=== PATIENT | female | born 1945 | race Caucasian/White ===

== ENCOUNTER 2020-02-28 09:46 | Outpatient (REF) | payer MEDICARE, SELFPAY ==
--- NOTE | 2020-02-28 | MM_ITS ---
EXAMINATION: MM SCREENING DIGITAL BREAST TOMOSYNTHESIS, BILATERAL CLINICAL INFORMATION: Screening. Asymptomatic. The lifetime risk of breast cancer based on the Tyrer-Cuzick Model is 3%. COMPARISON: Mammography: 02/21/2019, 02/03/2018, 01/05/2017 TECHNIQUE: Digital breast tomosynthesis is performed in both the craniocaudal and mediolateral oblique views along with computer-aided detection (CAD). Synthesized 2D images are generated from the tomosynthesis. Additional left MLO view is provided. FINDINGS: There are scattered areas of fibroglandular density (ACR BI-RADS breast composition Category b). Parenchymal pattern is similar to prior studies. There is no interval mass or developing density or architectural abnormality. The axilla and skin contours are unremarkable. Again, there are regional calcifications right breast greatest central region. They appear increased although there may be superimposed digital processing artifact when compared with prior exams performed without tomosynthesis. Patient will be recalled to obtain the magnification views to fully characterize. MM/MM tomosynthesis screening BI IMPRESSION: 1. Right: Regional calcifications right breast, increased versus superimposed digital processing artifact. 2. Left: No mammographic evidence of malignancy. ASSESSMENT: BI-RADS 0: Incomplete - Need Additional Imaging Evaluation RECOMMENDATION: 1. Additional views of the right breast (magnification CC, magnification ML). 2. Radiology department staff will contact the patient for additional imaging. This patient's information was entered into a reminder system with a target due date for their next mammogram.
== END 2020-02-28 09:47 | disposition home or self-care (01) ==
LOC: HO.MAMMO 09:46
PROVIDERS: Visit Provider Family Medicine
DX: Z12.31 Encounter for screening mammogram for malignant neoplasm of breast (principal)
CPT/HCPCS: 77063; 77067

== ENCOUNTER 2020-03-06 12:54 | Outpatient (REF) | payer MEDICARE, SELFPAY ==
--- NOTE | 2020-03-06 | MM_ITS ---
EXAMINATION: MM DIAGNOSTIC DIGITAL MAMMOGRAPHY, RIGHT CLINICAL INFORMATION: Increasing calcifications. COMPARISON: Mammography: 02/28/2020 and studies dating back to 06/18/2010. TECHNIQUE: Digital mammography is performed in the following views: Magnification views in craniocaudal and 90-degree mediolateral views. FINDINGS: There are scattered areas of fibroglandular density (ACR BI-RADS breast composition Category b). There are grouped and scattered calcifications seen about the central aspect of the right breast which appears similar to previous studies with one region more laterally smaller in size and heart compared to previous studies. There is no layering identified on 90-degree mediolateral view. No branching forms are identified. Recommend 6 month follow-up magnification views for further follow-up. Results are provided to the patient at time of visit by the technologist. MM/MM added views RT IMPRESSION: Probable benign calcifications right breast. ASSESSMENT: BI-RADS 3: Probably Benign. RECOMMENDATION: Diagnostic mammography in 6 months. This patient's information was entered into a reminder system with a target due date for their next mammogram.
== END 2020-03-06 12:55 | disposition home or self-care (01) ==
LOC: HO.MAMMO 12:54
PROVIDERS: Visit Provider Family Medicine
DX: R92.1 Mammographic calcification found on diagnostic imaging of breast (principal)
CPT/HCPCS: 77065

== ENCOUNTER 2020-04-12 16:32 | Inpatient (IN) | payer MEDICARE, SELFPAY ==
[2020-04-12 16:34] VITALS: BP 162/68; PULSE 94; RESP 18; TEMP 37.8; O2SAT 93; BMI 28.4
[2020-04-12 16:43] VITALS: BP 162/68; PULSE 95; RESP 18; TEMP 37.8; O2SAT 92
--- NOTE | 2020-04-12 17:07 | ED_ITS ---
HPI - General Adult General Chief complaint: General Medical Stated complaint: fever, cough, weakness Time Seen by Provider: 04/12/20 17:04 Source: patient Mode of arrival: ambulatory Limitations: language barrier History of Present Illness HPI narrative: Patient has history of arthritis asthma and diabetes 5 days of weakness cough with mucoid phlegm and low-grade fever with nausea. Patient denies any vomiting or diarrhea has not been able to eat for last 5 days much exertional shortness of breath ++ no one at home is COVID positive Onset (ago): day(s) (5) Related Data Allergies Allergy/AdvReac Type Severity Reaction Status Date / Time Penicillins Allergy Severe SWELLING Unverified 01/17/20 16:31 levofloxacin [From LEVAQUIN] Allergy Mild ITCHING Unverified 01/17/20 16:31 penicillin V Allergy Unknown hives Verified 09/08/17 00:00 SEAFOOD Allergy Unknown ITCHING/SWE Uncoded 01/17/20 16:31 LLING seafood Allergy Unknown hives Uncoded 09/08/17 00:00 Review of Systems Review of Systems: REVIEW OF SYSTEMS: Pertinent positives and negatives are stated above in the history. GEN: no fevers, chills, fatigue HEENT: no nasal congestion, sore throat, ear pain NEURO: no headache, dizziness, focal weakness PULM: no shortness of breath CV: no chest pain, palpitations, LE edema ABD: no vomiting, diarrhea mild pain in left upper abdomen with nausea : no dysuria, urgency, frequency SKIN: no rash ROS otherwise negative x 10 PMFSH Past Medical History Medical History Arthritis Asthma Diabetes HTN (hypertension) Osteoporosis Thyroid disease Social History Social History Alcohol intake: never Smoking Status: Never smoker Use of substances other than those prescribed or required for medical reasons: No Advance Directives: No Advance Directives Information Provided: No Physical Exam Vital Signs: Vital Signs: Last Vital Signs Temp 100.1 F 04/12/20 20:18 Pulse 86 04/12/20 20:18 Resp 10 L 04/12/20 20:18 BP 142/66 H 04/12/20 20:18 Pulse Ox 97 04/12/20 20:18 Body Mass Index 28.4 VITAL SIGNS: Reviewed. GENERAL: Well developed, well nourished, in no acute distress. HEAD: Normocephalic/atraumatic, EYES: PERRLA No pallor/icterus noted OROPHARYNX: Oral mucosa moist no oral lesions NECK: Supple, no adenopathy LUNGS: Normal breath sounds. No adventitious sounds or accessory muscle use CARDIOVASCULAR: Regular rate and rhythm without noted murmurs, no JVD or lower extremity edema. ABDOMEN: Soft, non-tender, non-distended with normal bowel sounds. No rigidity. No guarding. No palpable masses or hernias noted MUSCULOSKELETAL: No tenderness, deformities, EXTREMITIES: No cyanosis or edema. SKIN: no rashes, ulcerations, jaundice, pallor, or petechiae NEUROLOGIC: Alert and oriented x 3. Strength and sensation to light touch were grossly intact normal speech Medical Decision Making MDM Narrative Medical decision making narrative: Patient has history of asthma and diabetes came here for 5 days of weakness and cough and exertional shortness of breath when the patient ambulated in the ER patient's pulse ox dropped to 86% at room air improved to 91% at rest and on 2 L of oxygen to 96% patient x-ray showed bilateral lower lobe infiltrate patient white counts are normal lactic acid is also normal COVID testing came positive for COVID-19 infection. Will admit patient for hypoxia, IV Decadron and empirical antibiotic Rocephin and doxycycline Lab Data Lab results reviewed: Yes I reviewed the patient's lab results. Result diagrams: 04/12/20 17:55 04/12/20 17:54 Labs: Lab Results 04/12/20 04/12/20 04/12/20 Range/Units 17:54 17:54 17:55 WBC 5.2 (4.8-10.8) X10*3/uL RBC 3.98 L (4.20-5.50) X10*6/uL Hgb 12.4 (12.0-16.0) g/dl Hct 37.0 (37-47) % MCV 93.0 (80-98) fL MCH 31.2 (27.0-33.0) pg MCHC 33.5 (31.0-35.0) g/dl RDW 11.2 (11.0-16.0) % Plt Count 209 (160-400) X10*3/uL MPV 9.7 (9.4-12.3) fL Immature Gran % (Auto) 0.6 H (0.0-0.4) % Neut % (Auto) 70.0 (45-73) % Lymph % (Auto) 19.1 L (20-40) % [place] % (Auto) 10.1 (2-11) % Eos % (Auto) 0.0 (0-4) % Baso % (Auto) 0.2 (0-2) % Lymph # (Auto) 1.0 L (1.2-4.9) X10*3/uL [place] # (Auto) 0.5 (0.1-1.2) X10*3/uL Eos # (Auto) 0.0 (0.0-0.4) X10*3/uL Baso # (Auto) 0.0 (0.0-0.2) X10*3/uL Abs Immat Gran (auto) 0.03 (0.00-0.03) X10*3/uL Absolute Neuts (auto) 3.6 (2.0-8.3) X10*3/uL Absolute Nucleated RBC 0.000 (0.0-0.012) X10*3/uL Nucleated RBC % (auto) 0.0 (0.0-0.2) /100WBC Sodium 138 (135-145) mmol/L Potassium 3.7 (3.3-5.1) mmol/l Chloride 102 (96-108) mmol/L Carbon Dioxide 26 (22-29) mmol/L Anion Gap 14 (12-20) BUN 11 (9-16) mg/dL Creatinine 0.71 (0.5-1.4) mg/dL Estim Creat Clear Calc 59.8 Estimated GFR > 60 Random Glucose 99 (60-115) mg/dL Lactic Acid 1.2 (0.5-2.0) mmol/L Calcium 8.0 L (8.4-10.2) mg/dL Total Bilirubin 0.5 (0.0-1.0) mg/dL Direct Bilirubin 0.3 (0.0-0.5) mg/dL AST 39 H (5-31) U/L ALT 26 (0-31) U/L Alkaline Phosphatase 54 (39-117) U/L Troponin I High Sens (<3.5-17.0) ng/L Total Protein 6.0 L (6.5-8.0) g/dL Albumin 3.7 (3.5-5.0) g/dL Lipase 49 (8-78) U/L Urine Color Urine Appearance Urine pH (5.0-8.0) Ur Specific [place] (1.005-1.025) Urine Protein (NEG-TRACE) MG/DL Urine Glucose (UA) (NEG) MG/DL Urine Ketones (NEG) MG/DL Urine Blood (NEG) Urine Nitrite (NEG) Ur Leukocyte Esterase (NEG) Urine RBC (0) /HPF Urine WBC (0-4) /HPF Ur Squamous Epith Cells /LPF Urine Bacteria /LPF Urine Mucus /LPF Coronavirus (PCR) (Negative) Influenza Type A (PCR) (Negative) Influenza Type B (PCR) (Negative) RSV RNA Qual (PCR) (Negative) 04/12/20 04/12/20 04/12/20 Range/Units 17:55 17:55 17:55 WBC (4.8-10.8) X10*3/uL RBC (4.20-5.50) X10*6/uL Hgb (12.0-16.0) g/dl Hct (37-47) % MCV (80-98) fL MCH (27.0-33.0) pg MCHC (31.0-35.0) g/dl RDW (11.0-16.0) % Plt Count (160-400) X10*3/uL MPV (9.4-12.3) fL Immature Gran % (Auto) (0.0-0.4) % Neut % (Auto) (45-73) % Lymph % (Auto) (20-40) % [place] % (Auto) (2-11) % Eos % (Auto) (0-4) % Baso % (Auto) (0-2) % Lymph # (Auto) (1.2-4.9) X10*3/uL [place] # (Auto) (0.1-1.2) X10*3/uL Eos # (Auto) (0.0-0.4) X10*3/uL Baso # (Auto) (0.0-0.2) X10*3/uL Abs Immat Gran (auto) (0.00-0.03) X10*3/uL Absolute Neuts (auto) (2.0-8.3) X10*3/uL Absolute Nucleated RBC (0.0-0.012) X10*3/uL Nucleated RBC % (auto) (0.0-0.2) /100WBC Sodium Cancelled (135-145) mmol/L Potassium Cancelled (3.3-5.1) mmol/l Chloride Cancelled (96-108) mmol/L Carbon Dioxide Cancelled (22-29) mmol/L Anion Gap Cancelled (12-20) BUN Cancelled (9-16) mg/dL Creatinine Cancelled (0.5-1.4) mg/dL Estim Creat Clear Calc Cancelled Estimated GFR Cancelled Random Glucose Cancelled (60-115) mg/dL Lactic Acid (0.5-2.0) mmol/L Calcium Cancelled (8.4-10.2) mg/dL Total Bilirubin Cancelled (0.0-1.0) mg/dL Direct Bilirubin Cancelled (0.0-0.5) mg/dL AST Cancelled (5-31) U/L ALT Cancelled (0-31) U/L Alkaline Phosphatase Cancelled (39-117) U/L Troponin I High Sens 13.9 (<3.5-17.0) ng/L Total Protein Cancelled (6.5-8.0) g/dL Albumin Cancelled (3.5-5.0) g/dL Lipase (8-78) U/L Urine Color Urine Appearance Urine pH (5.0-8.0) Ur Specific [place] (1.005-1.025) Urine Protein (NEG-TRACE) MG/DL Urine Glucose (UA) (NEG) MG/DL Urine Ketones (NEG) MG/DL Urine Blood (NEG) Urine Nitrite (NEG) Ur Leukocyte Esterase (NEG) Urine RBC (0) /HPF Urine WBC (0-4) /HPF Ur Squamous Epith Cells /LPF Urine Bacteria /LPF Urine Mucus /LPF Coronavirus (PCR) (Negative) Influenza Type A (PCR) (Negative) Influenza Type B (PCR) (Negative) RSV RNA Qual (PCR) (Negative) 04/12/20 04/12/20 Range/Units 17:55 18:04 WBC (4.8-10.8) X10*3/uL RBC (4.20-5.50) X10*6/uL Hgb (12.0-16.0) g/dl Hct (37-47) % MCV (80-98) fL MCH (27.0-33.0) pg MCHC (31.0-35.0) g/dl RDW (11.0-16.0) % Plt Count (160-400) X10*3/uL MPV (9.4-12.3) fL Immature Gran % (Auto) (0.0-0.4) % Neut % (Auto) (45-73) % Lymph % (Auto) (20-40) % [place] % (Auto) (2-11) % Eos % (Auto) (0-4) % Baso % (Auto) (0-2) % Lymph # (Auto) (1.2-4.9) X10*3/uL [place] # (Auto) (0.1-1.2) X10*3/uL Eos # (Auto) (0.0-0.4) X10*3/uL Baso # (Auto) (0.0-0.2) X10*3/uL Abs Immat Gran (auto) (0.00-0.03) X10*3/uL Absolute Neuts (auto) (2.0-8.3) X10*3/uL Absolute Nucleated RBC (0.0-0.012) X10*3/uL Nucleated RBC % (auto) (0.0-0.2) /100WBC Sodium (135-145) mmol/L Potassium (3.3-5.1) mmol/l Chloride (96-108) mmol/L Carbon Dioxide (22-29) mmol/L Anion Gap (12-20) BUN (9-16) mg/dL Creatinine (0.5-1.4) mg/dL Estim Creat Clear Calc Estimated GFR Random Glucose (60-115) mg/dL Lactic Acid (0.5-2.0) mmol/L Calcium (8.4-10.2) mg/dL Total Bilirubin (0.0-1.0) mg/dL Direct Bilirubin (0.0-0.5) mg/dL AST (5-31) U/L ALT (0-31) U/L Alkaline Phosphatase (39-117) U/L Troponin I High Sens (<3.5-17.0) ng/L Total Protein (6.5-8.0) g/dL Albumin (3.5-5.0) g/dL Lipase (8-78) U/L Urine Color YELLOW Urine Appearance CLEAR Urine pH 7.0 (5.0-8.0) Ur Specific [place] 1.010 (1.005-1.025) Urine Protein 1+ H (NEG-TRACE) MG/DL Urine Glucose (UA) NEG (NEG) MG/DL Urine Ketones NEG (NEG) MG/DL Urine Blood TRACE (NEG) Urine Nitrite NEG (NEG) Ur Leukocyte Esterase TRACE H (NEG) Urine RBC 0-2 (0) /HPF Urine WBC 5-9 H (0-4) /HPF Ur Squamous Epith Cells 2+ /LPF Urine Bacteria NONE /LPF Urine Mucus TRACE /LPF Coronavirus (PCR) POSITIVE A (Negative) Influenza Type A (PCR) NEGATIVE (Negative) Influenza Type B (PCR) NEGATIVE (Negative) RSV RNA Qual (PCR) NEGATIVE (Negative) Imaging Data Chest x-ray: Attestation: I personally reviewed and interpreted this imaging study as follows: Radiologist's impression: XR/XR chest 1V IMPRESSION: Patchy bilateral lower lobe infiltrates. Discharge Plan Discharge Clinical Impression: Pneumonia due to 2019 novel coronavirus Patient Disposition: Admitted As Inpatient
--- NOTE | 2020-04-12 17:24 | XR_ITS ---
EXAMINATION: XR CHEST CLINICAL INFORMATION: Weakness with question of Covid COMPARISON: 05/14/2019 TECHNIQUE: Frontal view of the chest was obtained. FINDINGS: There is cardiomegaly without CHF. Some ill-defined patchy infiltrate is present at the lung bases, left greater than right. There is relative sparing of the upper lobes. No pleural effusions are seen. XR/XR chest 1V IMPRESSION: Patchy bilateral lower lobe infiltrates.
[2020-04-12] MEDS: 0.9 % Sodium Chloride 1,000 ML 999 ML IVCONT (17:35)
[2020-04-12 18:06] LABS: MANUAL DIFF FLAG NO
[2020-04-12 18:13] LABS: Basophils Percent Auto 0.2 % (0-2); Hemoglobin 12.4 g/dl (12.0-16.0); Imm Gran Abs Auto 0.03 X10*3/uL (0.00-0.03); Imm Gran Pct Auto 0.6 % (0.0-0.4); Lymphocytes Percent Auto 19.1 % (20-40); Mean Corpuscular HGB Conc 33.5 g/dl (31.0-35.0); Mean Corpuscular Hemoglobin 31.2 pg (27.0-33.0); Mean Platelet Volume 9.7 fL (9.4-12.3); Monocytes Absolute Auto 0.5 X10*3/uL (0.1-1.2); Monocytes Percent Auto 10.1 % (2-11); Neutrophils Absolute Auto 3.6 X10*3/uL (2.0-8.3); Platelet Count 209 X10*3/uL (160-400); Red Blood Count 3.98 X10*6/uL (4.20-5.50); Red Cell Distribution Width 11.2 % (11.0-16.0); White Blood Count 5.2 X10*3/uL (4.8-10.8)
[2020-04-12 18:33] LABS: Lactic Acid 1.2 mmol/L (0.5-2.0)
[2020-04-12 18:37] LABS: Alanine Aminotransferase 26 U/L (0-31); Albumin Level 3.7 g/dL (3.5-5.0); Alkaline Phosphatase 54 U/L (39-117); Anion Gap 14 (12-20); Aspartate Amino Transferase 39 U/L (5-31); Bilirubin Direct 0.3 mg/dL (0.0-0.5); Bilirubin Total 0.5 mg/dL (0.0-1.0); Blood Urea Nitrogen 11 mg/dL (9-16); Carbon Dioxide 26 mmol/L (22-29); Chloride 102 mmol/L (96-108); Creatinine Clr Calc Pharmacy 59.8; Estimated Glomerular Filt Rate > 60; Glucose Random 99 mg/dL (60-115); Lipase 49 U/L (8-78); Potassium 3.7 mmol/l (3.3-5.1); Sodium 138 mmol/L (135-145)
[2020-04-12 18:41] LABS: Glucose Urine UA NEG (NEG); Leukocyte Esterase Urine TRACE (NEG); Nitrite Urine NEG (NEG); Urine Blood TRACE (NEG); Urine Ketones NEG (NEG); Urine Protein 1+ MG/DL (NEG-TRACE)
[2020-04-12 18:49] LABS: Appearance Urine CLEAR; Color Urine YELLOW
[2020-04-12 18:53] LABS: Troponin-I High Sensitivity 13.9 ng/L (<3.5-17.0)
[2020-04-12 18:54] LABS: Influenza A PCR NEGATIVE (Negative); Influenza B PCR NEGATIVE (Negative); Resp Syncy Virus RNA Qual PCR NEGATIVE (Negative)
[2020-04-12 19:08] LABS: SARS COV2 PCR INHOUSE POSITIVE (Negative)
[2020-04-12 19:11] VITALS: BP 188/81; PULSE 100; RESP 28; TEMP 38; O2SAT 91
[2020-04-12] MEDS: Acetaminophen 325 MG TABLET 650 MG PO (19:12)
[2020-04-12 19:15] VITALS: O2SAT 95
--- NOTE | 2020-04-12 19:15 | PC.NURSE ---
PT AMBULATED TO BR W/ EVEN STEADY GAIT, REPORTED BARTON, SPO2 86% RA UPON ARRIVAL BACK TO ROOM, SPO2 INCREASED TO 91 AFTER RESTING IN BED, PT PLACED ON 2L O2 NC, SPO2 INCREASED TO 96%
[2020-04-12] MEDS: cefTRIAXone sodium 1 GM in 0.9 % Sodium Chloride 50 ML IV (19:22)
[2020-04-12] MEDS: dexAMETHasone sod phosphate 4 MG/ML VIAL 10 MG IVPUSH (19:27)
[2020-04-12 19:45] LABS: RBC Urine 0-2 /HPF (0)
[2020-04-12 19:46] LABS: Mucus Urine TRACE /LPF; Squamous Epithelial Cell Urine 2+ /LPF
[2020-04-12 20:18] VITALS: BP 142/66; PULSE 86; RESP 10; TEMP 37.8; O2SAT 97
--- NOTE | 2020-04-12 20:18 | PM.IMHP ---
History of Present Illness Date of Service: 04/12/20 Chief Complaint: SOB 75 y/o female with PMHx of HTN, DM, Hypothyroidism and asthma who presented c/o SOB. Per history provided by the patient, her symptoms started today morning and since then has been worsening, associated with headaches and feeling generalized weakness. Patient does not reports any fever or cough at present. On presentation to the ED patient was found to be hypoxic O2sat of 86% which improved once placed on nasal cannula. CBC showed no evidence of leukocytosis. CXR positive for bilateral lower lober infiltrates. Covid test positive. Patient was placed on isolation and decision for admission given. Patient seen and examined a the bedside, laying down in bed in no acute distress. ROS as above otherwise negative. Physical exam unremarkable. PMHX: Hypertension, diabetes, hypothyroidism, asthma PSx: Hip replacement surgery, hysterectomy FHx: Depression Social history: Lives with at home, uses a cane sometimes when her hip hurts her, denies any tobacco, alcohol or illicit drugs Review of Systems Constitutional: Constitutional: Reports other (headache, weakness) Cardiovascular: Cardiovascular: Reports dyspnea Respiratory: Respiratory: Reports dyspnea [facility] Medical History Arthritis Asthma Diabetes HTN (hypertension) Osteoporosis Thyroid disease Functional capacity: independent ambulation Social History Alcohol intake: never Smoking Status: Never smoker Use of substances other than those prescribed or required for medical reasons: No Advance Directives: No Advance Directives Information Provided: No Meds Allergies Allergy/AdvReac Type Severity Reaction Status Date / Time Penicillins Allergy Severe SWELLING Unverified 01/17/20 16:31 levofloxacin [From LEVAQUIN] Allergy Mild ITCHING Unverified 01/17/20 16:31 penicillin V Allergy Unknown hives Verified 09/08/17 00:00 SEAFOOD Allergy Unknown ITCHING/SWE Uncoded 01/17/20 16:31 LLING seafood Allergy Unknown hives Uncoded 09/08/17 00:00 Home Medications Medication Instructions Recorded Confirmed Type albuterol sulfate 1 amp INHALATION QID PRN 04/12/20 04/12/20 History albuterol sulfate [ProAir HFA] INHALATION 04/12/20 History ascorbic acid (vitamin C) [Vitamin 1 tab PO QAM 04/12/20 04/12/20 History C] aspirin 1 tab PO QAM 04/12/20 04/12/20 History atenolol 1 tab PO BEDTIME 04/12/20 04/12/20 History cholecalciferol (vitamin D3) 1 tab PO QAM 04/12/20 04/12/20 History diltiazem HCl [Cartia XT] 1 cap PO QAM 04/12/20 04/12/20 History fluticasone propionate 1 - 2 spray INTRANASAL DAILY PRN 04/12/20 04/12/20 History furosemide 1 tab PO QAM 04/12/20 04/12/20 History levothyroxine 1 tab PO QAM 04/12/20 04/12/20 History lisinopril 1 tab PO QAM 04/12/20 04/12/20 History metformin 1 tab PO TID 04/12/20 04/12/20 History mirabegron [Myrbetriq] 1 tab PO QAM 04/12/20 04/12/20 History omeprazole 1 cap PO QAM 04/12/20 04/12/20 History rosuvastatin 1 tab PO BEDTIME 04/12/20 04/12/20 History spironolactone 1 tab PO BEDTIME 04/12/20 04/12/20 History Physical Exam Vital Signs and Narrative: Vital Signs: Last Vital Signs Temp 100.4 F 04/12/20 19:11 Pulse 100 04/12/20 19:11 Resp 28 H 04/12/20 19:11 BP 188/81 H 04/12/20 19:11 Pulse Ox 95 04/12/20 19:15 Body Mass Index 28.4 Const: General: cooperative, comfortable and no acute distress Orientation/consciousness: oriented to person, oriented to place and oriented to time HENMT: Head: Yes normal to inspection Eyes: General: appearance normal, both eyes and all related structures Neck: Yes normal visual inspection Chest: Chest palpation & inspection: normal inspection of the chest Resp: Effort & Inspection: normal respiratory effort Auscultation: clear to auscultation bilaterally Cardio: Jugular venous distension: no JVD Rate: regular rate Rhythm: regular rhythm Heart sounds: S1 normal heart sound present and S2 normal heart sound present GI: Inspection: Yes normal to inspection Percussion: Yes normal to percussion Skin: General skin exam: no rashes or lesions noted Neuro: General: oriented to person, oriented to place and oriented to time Cognition (Neuro): normal cognition Gait exam (Neuro): Normal gait present Results Labs CBC and Chem 7: 04/12/20 17:55 04/12/20 17:54 Labs: Laboratory Results - last 24 hr 04/12/20 04/12/20 04/12/20 17:54 17:54 17:55 MCV 93.0 MCH 31.2 MCHC 33.5 RDW 11.2 Plt Count 209 MPV 9.7 Immature Gran % (Auto) 0.6 H Neut % (Auto) 70.0 Lymph % (Auto) 19.1 L [place] % (Auto) 10.1 Eos % (Auto) 0.0 Baso % (Auto) 0.2 Lymph # (Auto) 1.0 L [place] # (Auto) 0.5 Eos # (Auto) 0.0 Baso # (Auto) 0.0 Abs Immat Gran (auto) 0.03 Absolute Neuts (auto) 3.6 Absolute Nucleated RBC 0.000 Nucleated RBC % (auto) 0.0 Anion Gap 14 Estim Creat Clear Calc 59.8 Estimated GFR > 60 Random Glucose 99 Lactic Acid 1.2 Calcium 8.0 L Total Bilirubin 0.5 Direct Bilirubin 0.3 AST 39 H ALT 26 Alkaline Phosphatase 54 Troponin I High Sens Total Protein 6.0 L Albumin 3.7 Lipase 49 Urine Color Urine Appearance Urine pH Ur Specific [place] Urine Protein Urine Glucose (UA) Urine Ketones Urine Blood Urine Nitrite Ur Leukocyte Esterase Urine RBC Urine WBC Ur Squamous Epith Cells Urine Bacteria Urine Mucus Coronavirus (PCR) Influenza Type A (PCR) Influenza Type B (PCR) RSV RNA Qual (PCR) 04/12/20 04/12/20 04/12/20 17:55 17:55 17:55 MCV MCH MCHC RDW Plt Count MPV Immature Gran % (Auto) Neut % (Auto) Lymph % (Auto) [place] % (Auto) Eos % (Auto) Baso % (Auto) Lymph # (Auto) [place] # (Auto) Eos # (Auto) Baso # (Auto) Abs Immat Gran (auto) Absolute Neuts (auto) Absolute Nucleated RBC Nucleated RBC % (auto) Anion Gap Cancelled Estim Creat Clear Calc Cancelled Estimated GFR Cancelled Random Glucose Cancelled Lactic Acid Calcium Cancelled Total Bilirubin Cancelled Direct Bilirubin Cancelled AST Cancelled ALT Cancelled Alkaline Phosphatase Cancelled Troponin I High Sens 13.9 Total Protein Cancelled Albumin Cancelled Lipase Urine Color Urine Appearance Urine pH Ur Specific [place] Urine Protein Urine Glucose (UA) Urine Ketones Urine Blood Urine Nitrite Ur Leukocyte Esterase Urine RBC Urine WBC Ur Squamous Epith Cells Urine Bacteria Urine Mucus Coronavirus (PCR) Influenza Type A (PCR) Influenza Type B (PCR) RSV RNA Qual (PCR) 04/12/20 04/12/20 17:55 18:04 MCV MCH MCHC RDW Plt Count MPV Immature Gran % (Auto) Neut % (Auto) Lymph % (Auto) [place] % (Auto) Eos % (Auto) Baso % (Auto) Lymph # (Auto) [place] # (Auto) Eos # (Auto) Baso # (Auto) Abs Immat Gran (auto) Absolute Neuts (auto) Absolute Nucleated RBC Nucleated RBC % (auto) Anion Gap Estim Creat Clear Calc Estimated GFR Random Glucose Lactic Acid Calcium Total Bilirubin Direct Bilirubin AST ALT Alkaline Phosphatase Troponin I High Sens Total Protein Albumin Lipase Urine Color YELLOW Urine Appearance CLEAR Urine pH 7.0 Ur Specific [place] 1.010 Urine Protein 1+ H Urine Glucose (UA) NEG Urine Ketones NEG Urine Blood TRACE Urine Nitrite NEG Ur Leukocyte Esterase TRACE H Urine RBC 0-2 Urine WBC 5-9 H Ur Squamous Epith Cells 2+ Urine Bacteria NONE Urine Mucus TRACE Coronavirus (PCR) POSITIVE A Influenza Type A (PCR) NEGATIVE Influenza Type B (PCR) NEGATIVE RSV RNA Qual (PCR) NEGATIVE Imaging Radiologist's Impressions: Impressions Chest X-Ray 04/12/20 17:24 IMPRESSION: Patchy bilateral lower lobe infiltrates. Assessment and Plan (1) Pneumonia due to 2019 novel coronavirus: Status: Acute Isolation Start with Rocephin and doxycycline for gram neg and atypical coverage Start with Solumedrol IV as ordered and taper as tolerated Follow up Bcx and respiratory panel Infectious disease consult in the am (2) Respiratory failure: Status: Acute plan as above (3) Hyperlipidemia: Status: Acute continue with statin home dose (4) Diabetes: Status: Acute Insulin regimen as ordered Hold PO meds (5) HTN (hypertension): Status: Acute continue with diltiazem home dose continue with atenolol home dose continue with lasix home dose continue with lisinopril home dose continue with spironolactone home dose continue with aspirin home dose (6) Hypothyroidism: Status: Acute continue with levothyroxine home dose (7) GERD (gastroesophageal reflux disease): Status: Acute continue with PPI home dose (8) Overactive bladder: Status: Acute continue with mirabegron home dose
[2020-04-12] MEDS: Doxycycline Hyclate 100 MG in 0.9 % Sodium Chloride 250 ML 166.67 MG IV (21:26)
[2020-04-13] VITALS (9 sets, daily range): BP systolic 127–154; BP diastolic 54–79; PULSE 68–88; RESP 14–23; TEMP 36.1–37.2; O2SAT 95–98
[2020-04-13 05:59] LABS: Hematocrit 39.9 % (37-47); Hemoglobin 13.1 g/dl (12.0-16.0); Imm Gran Abs Auto 0.02 X10*3/uL (0.00-0.03); Imm Gran Pct Auto 0.7 % (0.0-0.4); Lymphocytes Absolute Auto 0.5 X10*3/uL (1.2-4.9); Lymphocytes Percent Auto 17.6 % (20-40); MANUAL DIFF FLAG SCAN; Mean Corpuscular HGB Conc 32.8 g/dl (31.0-35.0); Mean Corpuscular Volume 94.3 fL (80-98); Mean Platelet Volume 9.6 fL (9.4-12.3); Monocytes Absolute Auto 0.1 X10*3/uL (0.1-1.2); Monocytes Percent Auto 3.6 % (2-11); Neutrophils Absolute Auto 2.4 X10*3/uL (2.0-8.3); Neutrophils Percent Auto 78.1 % (45-73); Platelet Count 243 X10*3/uL (160-400); Red Blood Count 4.23 X10*6/uL (4.20-5.50); Red Cell Distribution Width 11.3 % (11.0-16.0); SCAN SMEAR FLAG 1; White Blood Count 3.1 X10*3/uL (4.8-10.8)
[2020-04-13 06:22] LABS: Anion Gap 17 (12-20); Blood Urea Nitrogen 12 mg/dL (9-16); Calcium 8.2 mg/dL (8.4-10.2); Carbon Dioxide 23 mmol/L (22-29); Chloride 108 mmol/L (96-108); Creatinine Clr Calc Pharmacy 60.6; Estimated Glomerular Filt Rate > 60; Glucose Random 182 mg/dL (60-115); Potassium 4.8 mmol/l (3.3-5.1); Sodium 143 mmol/L (135-145)
[2020-04-13] MEDS: Omeprazole 20 MG CAPSULE.DR PO (06:27)
[2020-04-13] MEDS: Heparin Sodium,Porcine 5,000 UNIT/ML VIAL 5000 UNIT SUBCUT ×3 (06:27→22:41)
[2020-04-13] MEDS: Levothyroxine Sodium 75 MCG TABLET PO (06:27)
[2020-04-13] MEDS: 0.9 % Sodium Chloride Flush 3 ML SYRINGE IVFLUSH ×4 (06:28→22:43)
[2020-04-13 07:34] LABS: Glucose, Whole Blood 157 mg/dL (60-115)
[2020-04-13 09:04] LABS: SLIDE REVIEW VERIFIED
--- NOTE | 2020-04-13 09:56 | HO.PM.IMPN ---
Subjective Subjective Date of Service: 04/13/20 Interval History: sob Cardiovascular Cardiovascular: Reports no additional cardiovascular complaints Gastrointestinal Gastrointestinal: Reports no additional gastrointestinal complaints Physical Exam Vital Signs: Vital Signs: Last Vital Signs Temp 97.9 F 04/13/20 07:23 Pulse 82 04/13/20 07:23 Resp 14 04/13/20 07:23 BP 139/68 04/13/20 07:23 Pulse Ox 96 04/13/20 07:23 Body Mass Index 28.4 General: AO X 3, no acute distress Resp: CTA bilateral CVS: S1,S2,RRR GI: soft, non tender, non distended Neuro: motor grossly intact Psych: appropriate affect Objective Data Current Medications Generic Name Dose Route Start Last Admin Trade Name Freq PRN Reason Stop Dose Admin Albuterol Sulfate 2.5 mg 04/12/20 22:04 Albuterol Sulfate (0.083%) 2.5 Mg/3 Ml Vial.Neb INHALE QID PRN Dyspnea Aspirin 81 mg 04/13/20 09:00 Aspirin Enteric Coated 81 Mg Tablet.Dr PO DAILY [facility] Atenolol 50 mg 04/13/20 21:00 Atenolol 50 Mg Tablet PO BEDTIME [facility] Protocol Atorvastatin Calcium 40 mg 04/13/20 21:00 Atorvastatin Calcium 40 Mg Tablet PO BEDTIME [facility] Diltiazem HCl 240 mg 04/13/20 09:00 Diltiazem Hcl Cd 240 Mg Cap.Er.Deg PO DAILY [facility] Protocol Doxycycline Hyclate 100 mg 04/13/20 22:00 Doxycycline Hyclate 100 Mg Tablet PO Q24H [facility] Fluticasone Propionate 1 - 2 spray 04/12/20 22:04 Fluticasone Propionate Nasal 16 Gm [place] NOSTRIL-B DAILY PRN Dyspnea Furosemide 20 mg 04/12/20 22:15 04/13/20 06:28 Furosemide 20 Mg Tablet PO Not Given DAILY [facility] Protocol Heparin Sodium (Porcine) 5,000 unit 04/13/20 06:00 04/13/20 06:27 Heparin Sodium,Porcine 5,000 Unit/Ml Vial SUBCUT 5,000 unit Q8H [facility] Administration Ceftriaxone Sodium 1 gm/ 50 mls @ 100 mls/hr 04/13/20 20:00 Sodium Chloride IV Q24H [facility] Insulin Human Lispro 0 unit 04/13/20 07:30 04/13/20 09:37 Insulin Lispro 100 Unit/Ml 3 Ml Vial SUBCUT 04/13/20 22:14 Not Given QIDACHS [facility] Protocol Levothyroxine Sodium 75 mcg 04/13/20 06:00 04/13/20 06:27 Levothyroxine Sodium 75 Mcg Tablet PO 75 mcg DAILY@0600 [facility] Administration Lisinopril 10 mg 04/13/20 09:00 Lisinopril 10 Mg Tablet PO DAILY [facility] Protocol Methylprednisolone Sodium Succinate 40 mg 04/13/20 06:00 04/13/20 06:27 Methylprednisolone Sod Succ/Pf 40 Mg/Ml Vial IVPUSH 40 mg Q24H [facility] Administration Mirabegron 50 mg 04/13/20 09:00 Mirabegron 50 Mg Tab.Er.24h PO DAILY [facility] Omeprazole 20 mg 04/13/20 06:30 04/13/20 06:27 Omeprazole 20 Mg Capsule.Dr PO 20 mg DAILY@0630 [facility] Administration Sodium Chloride 3 ml 04/13/20 04:25 04/13/20 09:38 0.9 % Sodium Chloride Flush 3 Ml Syringe IVFLUSH 3 ml QSHIFT [facility] Administration Spironolactone 50 mg 04/13/20 21:00 Spironolactone 25 Mg Tablet PO BEDTIME [facility] Protocol Labs CBC & Chem 7: 04/13/20 04:56 04/13/20 04:56 Microbiology Microbiology Results: Microbiology 04/12/20 19:00 Urine clean catch - Clean Catch Midstream Urine Culture - Preliminary No growth to date. Assessment and Plan (1) Hypothyroidism: Status: Acute (2) Diabetes: Status: Acute (3) Pneumonia due to 2019 novel coronavirus: Status: Acute (4) Respiratory failure: Status: Acute Assessment and Plan: 75F presented with sob acute hypoxic respiratory failure due to covid pneumonia continue steroids, rocephin, wean o2 as tolerated HTN atenolol, lisinopril, aldactone, cardizem HLD statin DM insulin hypothyroid synthroid
--- NOTE | 2020-04-13 11:05 | MHC.CM.PN ---
pt speaks primarily anguill[place] and is currently on [facility] isolation unit. this interview was conducted via pt's son. pt lives c her and son in their apt. she is independent in her own care, she sometimes uses a cane c ambulation. pt's son or will provide transportation home at dc. pt is amenable to having [facility] provide nsg svcs at dc and requested a ref. be made to [facility], which has been done. dc plan is to dc home c [facility] for nsg - pulm. monitoring. cm to cont. to follow.
[2020-04-13] MEDS: lisinopriL 10 MG TABLET PO (11:20)
[2020-04-13] MEDS: Furosemide 20 MG TABLET PO (11:20)
[2020-04-13] MEDS: dilTIAZem HCL CD 240 MG CAP.ER.DEG PO (11:20)
[2020-04-13] MEDS: Mirabegron 50 MG TAB.ER.24H PO (11:20)
[2020-04-13] MEDS: Aspirin Enteric Coated 81 MG TABLET.DR PO (11:20)
[2020-04-13 11:52] LABS: Glucose, Whole Blood 136 mg/dL (60-115)
[2020-04-13 12:08] LABS: Adenovirus PCR Not Detected (Not Detect.); Bordetella parapertussis PCR Not Detected (Not Detect.); Bordetella pertussis PCR Not Detected (Not Detect.); Chlamydia pneumoniae PCR Not Detected (Not Detect.); Coronavirus 229E PCR Not Detected (Not Detect.); Coronavirus HKU1 PCR Not Detected (Not Detect.); Coronavirus NL63 PCR Not Detected (Not Detect.); Coronavirus OC43 PCR Not Detected (Not Detect.); Human metapneumovirus PCR Not Detected (Not Detect.); Influenza A PCR Not Detected (Not Detect.); Influenza B PCR Not Detected (Not Detect.); Mycoplasma pneumoniae PCR Not Detected (Not Detect.); Parainfluenza 1 PCR Not Detected (Not Detect.); Parainfluenza 2 PCR Not Detected (Not Detect.); Parainfluenza 3 PCR Not Detected (Not Detect.); Parainfluenza 4 PCR Not Detected (Not Detect.); RSV PCR Not Detected (Not Detect.); Rhino/Enterovirus PCR Not Detected (Not Detect.)
[2020-04-13 12:59] LABS: SARS-CoV-2 PCR Detected (Not Detect.)
[2020-04-13 16:35] LABS: Glucose, Whole Blood 147 mg/dL (60-115)
[2020-04-13 21:05] LABS: Glucose, Whole Blood 141 mg/dL (60-115)
[2020-04-13] MEDS: Atorvastatin Calcium 40 MG TABLET PO (22:41)
[2020-04-13] MEDS: atenoloL 50 MG TABLET PO (22:41)
[2020-04-13] MEDS: Spironolactone 25 MG TABLET 50 MG PO (22:42)
[2020-04-13] MEDS: cefTRIAXone sodium 1 GM in 0.9 % Sodium Chloride 50 ML IV (22:42)
[2020-04-14] VITALS (9 sets, daily range): BP systolic 133–151; BP diastolic 58–66; PULSE 55–64; RESP 14–21; TEMP 36.4–36.6; O2SAT 94–99
[2020-04-14] MEDS: Heparin Sodium,Porcine 5,000 UNIT/ML VIAL 5000 UNIT SUBCUT ×3 (05:44→23:14)
[2020-04-14] MEDS: Omeprazole 20 MG CAPSULE.DR PO (05:45)
[2020-04-14] MEDS: Levothyroxine Sodium 75 MCG TABLET PO (05:45)
[2020-04-14 07:02] LABS: MANUAL DIFF FLAG NO
[2020-04-14 07:21] LABS: Basophils Percent Auto 0.1 % (0-2); Hematocrit 39.3 % (37-47); Hemoglobin 13.2 g/dl (12.0-16.0); Imm Gran Abs Auto 0.06 X10*3/uL (0.00-0.03); Imm Gran Pct Auto 0.6 % (0.0-0.4); Lymphocytes Absolute Auto 1.2 X10*3/uL (1.2-4.9); Lymphocytes Percent Auto 11.1 % (20-40); Mean Corpuscular HGB Conc 33.6 g/dl (31.0-35.0); Mean Corpuscular Hemoglobin 31.6 pg (27.0-33.0); Mean Platelet Volume 10.3 fL (9.4-12.3); Monocytes Absolute Auto 0.5 X10*3/uL (0.1-1.2); Monocytes Percent Auto 4.7 % (2-11); Neutrophils Absolute Auto 8.6 X10*3/uL (2.0-8.3); Neutrophils Percent Auto 83.5 % (45-73); Platelet Count 285 X10*3/uL (160-400); Red Blood Count 4.18 X10*6/uL (4.20-5.50); Red Cell Distribution Width 11.4 % (11.0-16.0); White Blood Count 10.3 X10*3/uL (4.8-10.8)
[2020-04-14 07:33] LABS: Anion Gap 15 (12-20); Blood Urea Nitrogen 21 mg/dL (9-16); Calcium 8.4 mg/dL (8.4-10.2); Carbon Dioxide 25 mmol/L (22-29); Chloride 108 mmol/L (96-108); Creatinine Clr Calc Pharmacy 55.8; Estimated Glomerular Filt Rate > 60; Glucose Fasting 145 mg/dL (60-99); Potassium 4.2 mmol/l (3.3-5.1); Sodium 144 mmol/L (135-145)
[2020-04-14 07:42] LABS: Glucose, Whole Blood 139 mg/dL (60-115)
--- NOTE | 2020-04-14 09:24 | P.PNIM_ITS ---
Subjective Subjective Date of Service: 04/14/20 Interval History: feeling better, some sob Cardiovascular Cardiovascular: Reports no additional cardiovascular complaints Gastrointestinal Gastrointestinal: Reports no additional gastrointestinal complaints Physical Exam Vital Signs: Vital Signs: Last Vital Signs Temp 97.9 F 04/14/20 08:00 Pulse 56 04/14/20 08:00 Resp 19 04/14/20 08:00 BP 149/59 H 04/14/20 08:00 Pulse Ox 99 04/14/20 08:00 Body Mass Index 28.4 General: AO X 3, no acute distress Resp: CTA bilateral CVS: S1,S2,RRR GI: soft, non tender, non distended Neuro: motor grossly intact Psych: appropriate affect Objective Data Current Medications Generic Name Dose Route Start Last Admin Trade Name Freq PRN Reason Stop Dose Admin Albuterol Sulfate 2.5 mg 04/12/20 22:04 Albuterol Sulfate (0.083%) 2.5 Mg/3 Ml Vial.Neb INHALE QID PRN Dyspnea Aspirin 81 mg 04/13/20 09:00 04/13/20 11:20 Aspirin Enteric Coated 81 Mg Tablet.Dr PO 81 mg DAILY [facility] Administration Atenolol 50 mg 04/13/20 21:00 04/13/20 22:41 Atenolol 50 Mg Tablet PO 50 mg BEDTIME [facility] Administration Protocol Atorvastatin Calcium 40 mg 04/13/20 21:00 04/13/20 22:41 Atorvastatin Calcium 40 Mg Tablet PO 40 mg BEDTIME [facility] Administration Diltiazem HCl 240 mg 04/13/20 09:00 04/13/20 11:20 Diltiazem Hcl Cd 240 Mg Cap.Er.Deg PO 240 mg DAILY [facility] Administration Protocol Doxycycline Hyclate 100 mg 04/13/20 22:00 04/13/20 22:41 Doxycycline Hyclate 100 Mg Tablet PO 100 mg Q24H [facility] Administration Fluticasone Propionate 1 - 2 spray 04/12/20 22:04 Fluticasone Propionate Nasal 16 Gm [place] NOSTRIL-B DAILY PRN Dyspnea Furosemide 20 mg 04/12/20 22:15 04/13/20 11:20 Furosemide 20 Mg Tablet PO 20 mg DAILY [facility] Administration Protocol Heparin Sodium (Porcine) 5,000 unit 04/13/20 06:00 04/14/20 05:44 Heparin Sodium,Porcine 5,000 Unit/Ml Vial SUBCUT 5,000 unit Q8H [facility] Administration Ceftriaxone Sodium 1 gm/ 50 mls @ 100 mls/hr 04/13/20 20:00 04/14/20 00:37 Sodium Chloride IV Infused Q24H [facility] Infusion Levothyroxine Sodium 75 mcg 04/13/20 06:00 04/14/20 05:45 Levothyroxine Sodium 75 Mcg Tablet PO 75 mcg DAILY@0600 [facility] Administration Lisinopril 10 mg 04/13/20 09:00 04/13/20 11:20 Lisinopril 10 Mg Tablet PO 10 mg DAILY [facility] Administration Protocol Methylprednisolone Sodium Succinate 40 mg 04/13/20 06:00 04/14/20 05:45 Methylprednisolone Sod Succ/Pf 40 Mg/Ml Vial IVPUSH 40 mg Q24H [facility] Administration Mirabegron 50 mg 04/13/20 09:00 04/13/20 11:20 Mirabegron 50 Mg Tab.Er.24h PO 50 mg DAILY [facility] Administration Omeprazole 20 mg 04/13/20 06:30 04/14/20 05:45 Omeprazole 20 Mg Capsule.Dr PO 20 mg DAILY@0630 [facility] Administration Sodium Chloride 3 ml 04/13/20 04:25 04/13/20 22:43 0.9 % Sodium Chloride Flush 3 Ml Syringe IVFLUSH 3 ml QSHIFT [facility] Administration Spironolactone 50 mg 04/13/20 21:00 04/13/20 22:42 Spironolactone 25 Mg Tablet PO 50 mg BEDTIME [facility] Administration Protocol Labs CBC & Chem 7: 04/14/20 06:40 04/14/20 06:40 Microbiology Microbiology Results: Microbiology 04/12/20 19:11 Blood - Venous Blood Culture - Preliminary No growth after 24 hours. 04/12/20 18:02 Blood - Venous Blood Culture - Preliminary No growth after 24 hours. 04/12/20 19:00 Urine clean catch - Clean Catch Midstream Urine Culture - Preliminary No growth to date. Assessment and Plan (1) Hypothyroidism: Status: Acute (2) Diabetes: Status: Acute (3) Pneumonia due to 2019 novel coronavirus: Status: Acute (4) Respiratory failure: Status: Acute Assessment and Plan: 75F presented with sob acute hypoxic respiratory failure due to covid pneumonia continue steroids, rocephin, should be able to wean off o2 today. if conitnues to improve would consider discharge tomorrow HTN atenolol, lisinopril, aldactone, cardizem HLD statin DM insulin hypothyroid synthroid
[2020-04-14] MEDS: Mirabegron 50 MG TAB.ER.24H PO (10:00)
[2020-04-14] MEDS: lisinopriL 10 MG TABLET PO (10:00)
[2020-04-14] MEDS: Aspirin Enteric Coated 81 MG TABLET.DR PO (10:00)
[2020-04-14] MEDS: Furosemide 20 MG TABLET PO (10:00)
[2020-04-14] MEDS: 0.9 % Sodium Chloride Flush 3 ML SYRINGE IVFLUSH ×2 (10:17→23:43)
[2020-04-14] MEDS: dilTIAZem HCL CD 240 MG CAP.ER.DEG PO (10:25)
[2020-04-14 11:30] LABS: Glucose, Whole Blood 202 mg/dL (60-115)
--- NOTE | 2020-04-14 15:23 | W.PM.IDCN ---
History of Present Illness Data of Consult Service Date: 04/14/20 Requesting physician: Arnel Reyes Primary Care Provider: Unknown Physician HPI Reason for consult: shortness of breath She presents to hospital with shortness of breath for a day. She has had fatigue She has no fever or chills at this time Her exposure is unknown Review of Systems Review of Systems: Yes all other systems are reviewed and are negative Cardiovascular: Cardiovascular: Reports dyspnea Respiratory: Respiratory: Reports dyspnea PMFSH Past Medical History Medical History Arthritis Asthma Diabetes HTN (hypertension) Osteoporosis Thyroid disease Functional capacity: independent ambulation Social History Social History Household Members: Spouse Housing: Apartment Do you presently have visiting nurse or other home services: No Alcohol intake: never Smoking Status: Never smoker Use of substances other than those prescribed or required for medical reasons: No Currently Displaying Signs/Symptoms of Drug Intoxication Withdrawal: No Have you been hit, kicked, punched, or otherwise hurt by someone within the past year? If so, by whom?: No Do you feel safe in your current relationship?: No Is there a partner from a previous relationship who is making you feel unsafe now?: No Are you made to feel afraid or neglected: No Advance Directives: No Advance Directives Information Provided: No Do you have thoughts of harming others: None Do you have a plan to hurt others: No Plan Recently lost weight without trying: No service: No Current occupational status: retired Meds Allergies Allergy/AdvReac Type Severity Reaction Status Date / Time Penicillins Allergy Severe SWELLING Verified 04/13/20 06:27 levofloxacin [From LEVAQUIN] Allergy Mild ITCHING Verified 04/13/20 06:27 penicillin V Allergy Unknown hives Verified 04/13/20 06:27 SEAFOOD Allergy Unknown ITCHING/SWE Uncoded 04/13/20 06:27 LLING seafood Allergy Unknown hives Uncoded 04/13/20 06:27 Home Medications Medication Instructions Recorded Confirmed Type albuterol sulfate 1 amp INHALATION QID PRN 04/12/20 04/12/20 History albuterol sulfate [ProAir HFA] INHALATION 04/12/20 History ascorbic acid (vitamin C) [Vitamin 1 tab PO QAM 04/12/20 04/12/20 History C] aspirin 1 tab PO QAM 04/12/20 04/12/20 History atenolol 1 tab PO BEDTIME 04/12/20 04/12/20 History cholecalciferol (vitamin D3) 1 tab PO QAM 04/12/20 04/12/20 History diltiazem HCl [Cartia XT] 1 cap PO QAM 04/12/20 04/12/20 History fluticasone propionate 1 - 2 spray INTRANASAL DAILY PRN 04/12/20 04/12/20 History furosemide 1 tab PO QAM 04/12/20 04/12/20 History levothyroxine 1 tab PO QAM 04/12/20 04/12/20 History lisinopril 1 tab PO QAM 04/12/20 04/12/20 History metformin 1 tab PO TID 04/12/20 04/12/20 History mirabegron [Myrbetriq] 1 tab PO QAM 04/12/20 04/12/20 History omeprazole 1 cap PO QAM 04/12/20 04/12/20 History rosuvastatin 1 tab PO BEDTIME 04/12/20 04/12/20 History spironolactone 1 tab PO BEDTIME 04/12/20 04/12/20 History Physical Exam Vital Signs: Vital Signs: Last Vital Signs Temp 97.7 F 04/14/20 12:00 Pulse 64 04/14/20 12:00 Resp 14 04/14/20 12:00 BP 133/66 04/14/20 12:00 Pulse Ox 95 04/14/20 12:00 Body Mass Index 28.4 Const: General: cooperative Orientation/consciousness: oriented to person, oriented to place and oriented to time HENMT: Head: Yes normal to inspection Mouth: Normal oral and palatal mucosa present Eyes: General: appearance normal, both eyes and all related structures Resp: Effort & Inspection: normal respiratory effort Cardio: Rate: regular rate Rhythm: regular rhythm GI: Inspection: Yes normal to inspection : General: Yes no CVA tenderness Back/Spine/Pelvis: Back: no CVA tenderness Skin: General skin exam: no rashes or lesions noted Neuro: General: oriented to person, oriented to place and oriented to time Extrem: General: Yes normal to inspection Assessment and Plan (1) Pneumonia due to 2019 novel coronavirus: Problem details: She has no hypoxia at this time She has no signs of bacterial pneumonia(no lobar infiltrates,no productive sputum or leukocytosis) Status: Acute Stop IV antibiotics No need for steroids or Remdesivir as not hypoxic (2) Respiratory failure: Status: Acute Results Labs CBC & Chem 7: 04/14/20 06:40 04/14/20 06:40 Labs: Short CBC 04/14/20 Range/Units 06:40 WBC 10.3 (4.8-10.8) X10*3/uL Hgb 13.2 (12.0-16.0) g/dl Hct 39.3 (37-47) % Plt Count 285 (160-400) X10*3/uL BMP 04/14/20 06:40 Sodium 144 Potassium 4.2 Chloride 108 Carbon Dioxide 25 BUN 21 H D Creatinine 0.76 Calcium 8.4 Microbiology Microbiology Results: Microbiology 04/12/20 19:00 Urine clean catch - Clean Catch Midstream Urine Culture - Final 04/12/20 19:11 Blood - Venous Blood Culture - Preliminary No growth after 24 hours. 04/12/20 18:02 Blood - Venous Blood Culture - Preliminary No growth after 24 hours.
[2020-04-14 17:01] LABS: Glucose, Whole Blood 164 mg/dL (60-115)
--- NOTE | 2020-04-14 20:21 | PC.NURSE ---
assumed care at 0700. patient successfully titrated to room air. patient ambulates steadily to commode. some diarrhea today, good appetite and fluids. patient daughter updated. patient did have some sob while transferring back to bed from commode in early afternoon on room air; was visibly sob, but when asked, says she felt ok, as she often does when she has cough/cold. discussed with md, who orderd prn inhaler, but the event was time-limited, resolved without intervention.
[2020-04-14 22:51] LABS: Glucose, Whole Blood 178 mg/dL (60-115)
[2020-04-14] MEDS: Atorvastatin Calcium 40 MG TABLET PO (23:14)
[2020-04-14] MEDS: Spironolactone 25 MG TABLET 50 MG PO (23:16)
[2020-04-15 00:31] VITALS: BP 142/63; PULSE 57; RESP 16; TEMP 36.7; O2SAT 93
[2020-04-15 00:37] LABS: Glucose, Whole Blood 140 mg/dL (60-115)
[2020-04-15 03:57] VITALS: BP 143/62; PULSE 58; RESP 12; TEMP 36.2; O2SAT 93
[2020-04-15] MEDS: Heparin Sodium,Porcine 5,000 UNIT/ML VIAL 5000 UNIT SUBCUT (06:17)
[2020-04-15] MEDS: Levothyroxine Sodium 75 MCG TABLET PO (06:18)
[2020-04-15] MEDS: Omeprazole 20 MG CAPSULE.DR PO (06:18)
[2020-04-15 06:54] LABS: MANUAL DIFF FLAG NO
[2020-04-15 07:05] LABS: Basophils Percent Auto 0.2 % (0-2); Hematocrit 39.3 % (37-47); Hemoglobin 12.9 g/dl (12.0-16.0); Imm Gran Abs Auto 0.12 X10*3/uL (0.00-0.03); Lymphocytes Absolute Auto 1.6 X10*3/uL (1.2-4.9); Lymphocytes Percent Auto 13.2 % (20-40); Mean Corpuscular HGB Conc 32.8 g/dl (31.0-35.0); Mean Corpuscular Hemoglobin 30.7 pg (27.0-33.0); Mean Corpuscular Volume 93.6 fL (80-98); Mean Platelet Volume 10.1 fL (9.4-12.3); Monocytes Absolute Auto 0.6 X10*3/uL (0.1-1.2); Monocytes Percent Auto 4.9 % (2-11); Neutrophils Absolute Auto 9.5 X10*3/uL (2.0-8.3); Neutrophils Percent Auto 80.7 % (45-73); Platelet Count 319 X10*3/uL (160-400); Red Cell Distribution Width 11.4 % (11.0-16.0); White Blood Count 11.8 X10*3/uL (4.8-10.8)
[2020-04-15 07:23] LABS: Anion Gap 14 (12-20); Blood Urea Nitrogen 24 mg/dL (9-16); Calcium 8.3 mg/dL (8.4-10.2); Carbon Dioxide 22 mmol/L (22-29); Chloride 110 mmol/L (96-108); Creatinine Clr Calc Pharmacy 56.6; Estimated Glomerular Filt Rate > 60; Glucose Fasting 133 mg/dL (60-99); Potassium 4.1 mmol/l (3.3-5.1); Sodium 142 mmol/L (135-145)
[2020-04-15 07:28] LABS: D Dimer 680 NG/ML
[2020-04-15 07:35] LABS: Glucose, Whole Blood 124 mg/dL (60-115)
[2020-04-15 07:50] VITALS: BP 131/63; PULSE 59; RESP 14; TEMP 36.9; O2SAT 94
[2020-04-15] MEDS: 0.9 % Sodium Chloride Flush 3 ML SYRINGE IVFLUSH (09:21)
[2020-04-15] MEDS: Aspirin Enteric Coated 81 MG TABLET.DR PO (09:21)
[2020-04-15 09:22] VITALS: BP 130/56; BP 130/66; PULSE 66
[2020-04-15] MEDS: lisinopriL 10 MG TABLET PO (09:22)
[2020-04-15] MEDS: Furosemide 20 MG TABLET PO (09:22)
[2020-04-15] MEDS: Mirabegron 50 MG TAB.ER.24H PO (09:22)
[2020-04-15] MEDS: dilTIAZem HCL CD 240 MG CAP.ER.DEG PO (09:22)
--- NOTE | 2020-04-15 10:03 | PM.DS ---
DS: Providers Provider Date of admission: 04/12/20 22:11 Primary care physician: Unknown Physician Consults: 04/13/20 04:25 Consult to Infectious Diseases Routine Consulting Provider: Sonya Boone Reason for consultation: covid infection Has provider been notified: No DS: Diagnosis Discharge Diagnosis (1) Pneumonia due to 2019 novel coronavirus: Status: Acute Problem details: She has no hypoxia at this time She has no signs of bacterial pneumonia(no lobar infiltrates,no productive sputum or leukocytosis) (2) Respiratory failure: Status: Acute DS: Medications Discharge Medications Home Medications: Home Medications Medication Instructions Recorded Confirmed albuterol sulfate 1 amp INHALATION QID PRN 04/12/20 04/12/20 albuterol sulfate [ProAir HFA] INHALATION 04/12/20 ascorbic acid (vitamin C) [Vitamin 1 tab PO QAM 04/12/20 04/12/20 C] aspirin 1 tab PO QAM 04/12/20 04/12/20 atenolol 1 tab PO BEDTIME 04/12/20 04/12/20 cholecalciferol (vitamin D3) 1 tab PO QAM 04/12/20 04/12/20 diltiazem HCl [Cartia XT] 1 cap PO QAM 04/12/20 04/12/20 fluticasone propionate 1 - 2 spray INTRANASAL DAILY PRN 04/12/20 04/12/20 furosemide 1 tab PO QAM 04/12/20 04/12/20 levothyroxine 1 tab PO QAM 04/12/20 04/12/20 lisinopril 1 tab PO QAM 04/12/20 04/12/20 metformin 1 tab PO TID 04/12/20 04/12/20 mirabegron [Myrbetriq] 1 tab PO QAM 04/12/20 04/12/20 omeprazole 1 cap PO QAM 04/12/20 04/12/20 rosuvastatin 1 tab PO BEDTIME 04/12/20 04/12/20 spironolactone 1 tab PO BEDTIME 04/12/20 04/12/20 DS: Summary Hospital Course Hospital Course: Patient was admitted with pneumonia due to covid 19 and has done well and in fact has not required oxygen. She was seen by ID and recommended no Abx or steroid given no hypoxia. she is eager to home. Time Spent with Patient Time attestation: Total time spent providing and/or coordinating discharge services: Physical Exam Vital Signs: Vital Signs: Last Vital Signs Temp 98.5 F 04/15/20 07:50 Pulse 66 04/15/20 09:22 Resp 14 04/15/20 07:50 BP 130/66 04/15/20 09:22 Pulse Ox 94 04/15/20 07:50 Body Mass Index 28.4 General: AO X 3, no acute distress Resp: CTA bilateral CVS: S1,S2,RRR GI: +BS, NT, no distention Skin: No rash Neuro: motor grossly intact Psych: appropriate affect DS: Data Data Completed and Pending Labs on day of discharge: 04/12/20 17:24 IV insert/maintain .Now XR chest 1V Stat 04/12/20 17:30 0.9 % Sodium Chloride [Ns] 1,000 ml IVCONT 999 mls/hr 04/12/20 17:38 Acetaminophen [Tylenol] 650 mg PO ONCE ONE 04/12/20 17:54 Basic Metabolic Panel Stat Lactic Acid Stat Lipase Stat Liver Panel Stat 04/12/20 17:55 Complete Blood Count Auto Diff Stat Troponin-I High Sensitivity Stat 04/12/20 18:04 SARS-CoV2/FLU/RSV Stat 04/12/20 19:00 Urine Culture Routine 04/12/20 19:05 cefTRIAXone sodium [Rocephin] 1 gm 0.9 % Sodium Chloride [Ns] 50 ml IV ONCE 04/12/20 19:19 cefTRIAXone sodium [Rocephin] 1 gm .ROUTE .STK-MED ONE dexAMETHasone sod phosphate [Decadron] 10 mg IVPUSH ONCE ONE 04/12/20 19:24 Doxycycline Hyclate [Vibramycin] 100 mg 0.9 % Sodium Chloride [Ns] 250 ml IV ONCE 04/12/20 21:18 Doxycycline Hyclate [Vibramycin] 100 mg IV .STK-MED ONE 04/12/20 22:11 Transfer Order Routine 04/13/20 Resp pnl result confirmation Stat Respiratory Panel Stat 04/13/20 04:25 Vital Signs Q4HR 04/13/20 04:56 Basic Metabolic Panel Routine Complete Blood Count Auto Diff Routine SLIDE REVIEW Routine 04/13/20 06:00 methylPREDNISolone Sod Succ/PF [SOLU-MedroL] 40 mg IVPUSH Q24H 04/13/20 07:23 Glucose, Whole Blood Routine 04/13/20 07:30 Insulin Lispro [Humalog] See Protocol SUBCUT QIDACHS 04/13/20 11:32 Glucose, Whole Blood Routine 04/13/20 16:18 Glucose, Whole Blood Routine 04/13/20 20:00 cefTRIAXone sodium [Rocephin] 1 gm 0.9 % Sodium Chloride [Ns] 50 ml IV Q24H 04/13/20 21:01 Glucose, Whole Blood Routine 04/13/20 22:00 Doxycycline Hyclate [Vibramycin] 100 mg PO Q24H 04/13/20 22:14 cefTRIAXone sodium [Rocephin] 1 gm .ROUTE .[facility] ONE 04/14/20 06:40 BMP [Basic Metabolic Panel Fasting] Routine Complete Blood Count Auto Diff Routine 04/14/20 07:35 Glucose, Whole Blood Routine 04/14/20 11:23 Glucose, Whole Blood Routine 04/14/20 16:17 Glucose, Whole Blood Routine 04/14/20 22:44 Glucose, Whole Blood Routine 04/15/20 00:29 Glucose, Whole Blood Routine 04/15/20 06:20 BMP [Basic Metabolic Panel Fasting] Routine Complete Blood Count Auto Diff Routine D Dimer Routine 04/15/20 07:16 Glucose, Whole Blood Routine Laboratory Last Values WBC 11.8 X10*3/uL (4.8-10.8) H 04/15/20 06:20 RBC 4.20 X10*6/uL (4.20-5.50) 04/15/20 06:20 Hgb 12.9 g/dl (12.0-16.0) 04/15/20 06:20 Hct 39.3 % (37-47) 04/15/20 06:20 MCV 93.6 fL (80-98) 04/15/20 06:20 MCH 30.7 pg (27.0-33.0) 04/15/20 06:20 MCHC 32.8 g/dl (31.0-35.0) 04/15/20 06:20 RDW 11.4 % (11.0-16.0) 04/15/20 06:20 Plt Count 319 X10*3/uL (160-400) 04/15/20 06:20 MPV 10.1 fL (9.4-12.3) 04/15/20 06:20 Immature Gran % (Auto) 1.0 % (0.0-0.4) H 04/15/20 06:20 Neut % (Auto) 80.7 % (45-73) H 04/15/20 06:20 Lymph % (Auto) 13.2 % (20-40) L 04/15/20 06:20 Leslie % (Auto) 4.9 % (2-11) 04/15/20 06:20 Eos % (Auto) 0.0 % (0-4) 04/15/20 06:20 Baso % (Auto) 0.2 % (0-2) 04/15/20 06:20 Lymph # (Auto) 1.6 X10*3/uL (1.2-4.9) 04/15/20 06:20 Leslie # (Auto) 0.6 X10*3/uL (0.1-1.2) 04/15/20 06:20 Eos # (Auto) 0.0 X10*3/uL (0.0-0.4) 04/15/20 06:20 Baso # (Auto) 0.0 X10*3/uL (0.0-0.2) 04/15/20 06:20 Abs Immat Gran (auto) 0.12 X10*3/uL (0.00-0.03) H 04/15/20 06:20 Absolute Neuts (auto) 9.5 X10*3/uL (2.0-8.3) H 04/15/20 06:20 Absolute Nucleated RBC 0.000 X10*3/uL (0.0-0.012) 04/15/20 06:20 Nucleated RBC % (auto) 0.0 /100WBC (0.0-0.2) 04/15/20 06:20 Smear Tech's Comments VERIFIED 04/13/20 04:56 D-Dimer 680 NG/ML 04/15/20 06:20 Sodium 142 mmol/L (135-145) 04/15/20 06:20 Potassium 4.1 mmol/l (3.3-5.1) 04/15/20 06:20 Chloride 110 mmol/L (96-108) H 04/15/20 06:20 Carbon Dioxide 22 mmol/L (22-29) 04/15/20 06:20 Anion Gap 14 (12-20) 04/15/20 06:20 BUN 24 mg/dL (9-16) H 04/15/20 06:20 Creatinine 0.75 mg/dL (0.5-1.4) 04/15/20 06:20 Estim Creat Clear Calc 56.6 04/15/20 06:20 Estimated GFR > 60 04/15/20 06:20 POC Glucose 124 mg/dL (60-115) H 04/15/20 07:16 Random Glucose 182 mg/dL (60-115) H D 04/13/20 04:56 Fasting Glucose 133 mg/dL (60-99) H 04/15/20 06:20 Lactic Acid 1.2 mmol/L (0.5-2.0) 04/12/20 17:54 Calcium 8.3 mg/dL (8.4-10.2) L 04/15/20 06:20 Total Bilirubin Cancelled 04/12/20 17:55 Direct Bilirubin Cancelled 04/12/20 17:55 AST Cancelled 04/12/20 17:55 ALT Cancelled 04/12/20 17:55 Alkaline Phosphatase Cancelled 04/12/20 17:55 Troponin I High Sens 13.9 ng/L (<3.5-17.0) 04/12/20 17:55 Total Protein Cancelled 04/12/20 17:55 Albumin Cancelled 04/12/20 17:55 Lipase 49 U/L (8-78) 04/12/20 17:54 Urine Color YELLOW 04/12/20 17:55 Urine Appearance CLEAR 04/12/20 17:55 Urine pH 7.0 (5.0-8.0) 04/12/20 17:55 Ur Specific [place] 1.010 (1.005-1.025) 04/12/20 17:55 Urine Protein 1+ MG/DL (NEG-TRACE) H 04/12/20 17:55 Urine Glucose (UA) NEG MG/DL (NEG) 04/12/20 17:55 Urine Ketones NEG MG/DL (NEG) 04/12/20 17:55 Urine Blood TRACE (NEG) 04/12/20 17:55 Urine Nitrite NEG (NEG) 04/12/20 17:55 Ur Leukocyte Esterase TRACE (NEG) H 04/12/20 17:55 Urine RBC 0-2 /HPF (0) 04/12/20 17:55 Urine WBC 5-9 /HPF (0-4) H 04/12/20 17:55 Ur Squamous Epith Cells 2+ /LPF 04/12/20 17:55 Urine Bacteria NONE /LPF 04/12/20 17:55 Urine Mucus TRACE /LPF 04/12/20 17:55 Respiratory Panel Valerio See Note 04/13/20 Unknown Adenovirus (Rapid PCR) Not Detected (Not Detect.) 04/13/20 Unknown B.pert (TEM-PCR) Not Detected (Not Detect.) 04/13/20 Unknown B.parapertussis DNA PCR Not Detected (Not Detect.) 04/13/20 Unknown C. pneumoniae DNA (PCR) Not Detected (Not Detect.) 04/13/20 Unknown Coronavirus (PCR) POSITIVE (Negative) A 04/12/20 18:04 Coronavirus OC43 (PCR) Not Detected (Not Detect.) 04/13/20 Unknown Coronavirus HKU1 (PCR) Not Detected (Not Detect.) 04/13/20 Unknown Coronavirus 229E (PCR) Not Detected (Not Detect.) 04/13/20 Unknown Coronavirus NL63 (PCR) Not Detected (Not Detect.) 04/13/20 Unknown Human Metapneumovir PCR Not Detected (Not Detect.) 04/13/20 Unknown Influenza A (RT-PCR) Not Detected (Not Detect.) 04/13/20 Unknown Influenza Type A (PCR) NEGATIVE (Negative) 04/12/20 18:04 Influenza B (RT-PCR) Not Detected (Not Detect.) 04/13/20 Unknown Influenza Type B (PCR) NEGATIVE (Negative) 04/12/20 18:04 M. pneumoniae (PCR) Not Detected (Not Detect.) 04/13/20 Unknown Parainfluenza 1 (PCR) Not Detected (Not Detect.) 04/13/20 Unknown Parainfluenza 2 (PCR) Not Detected (Not Detect.) 04/13/20 Unknown Parainfluenza 3 (PCR) Not Detected (Not Detect.) 04/13/20 Unknown Parainfluenza 4 (PCR) Not Detected (Not Detect.) 04/13/20 Unknown RSV (PCR) Not Detected (Not Detect.) 04/13/20 Unknown RSV RNA Qual (PCR) NEGATIVE (Negative) 04/12/20 18:04 Entero/Rhino (PCR) Not Detected (Not Detect.) 04/13/20 Unknown SARS-CoV-2 RNA (RT-PCR) Detected (Not Detect.) A 04/13/20 Unknown Preliminary micro results at discharge 04/12/20 19:11 Blood Culture - Preliminary Blood - Venous No growth after 48 hours. 04/12/20 18:02 Blood Culture - Preliminary Blood - Venous No growth after 48 hours. Discharge Plan Discharge Anticipated Discharge Date/Time: 04/15/20 09:59 Patient Disposition: Home, Self-Care Referrals: Physician,Unknown [Primary Care Provider] - Discharge Medications: Continued metformin 500 mg tablet 1 tab PO TID RF: 0 albuterol sulfate 2.5 mg /3 mL (0.083 %) solution for nebulization 1 amp inhalation QID PRN (Reason: Dyspnea) RF: 0 diltiazem HCl [Cartia XT] 240 mg capsule,extended release 24hr 1 cap PO QAM RF: 0 aspirin 81 mg tablet,delayed release (DR/EC) 1 tab PO QAM RF: 0 levothyroxine 75 mcg tablet 1 tab PO QAM RF: 0 ascorbic acid (vitamin C) [Vitamin C] 500 mg tablet 1 tab PO QAM RF: 0 lisinopril 10 mg tablet 1 tab PO QAM RF: 0 omeprazole 20 mg capsule,delayed release(DR/EC) 1 cap PO QAM RF: 0 furosemide 20 mg tablet 1 tab PO QAM RF: 0 albuterol sulfate [ProAir HFA] 90 mcg/actuation HFA aerosol inhaler inhalation RF: 0 fluticasone propionate 50 mcg/actuation spray,suspension 1 - 2 spray intranasal DAILY PRN (Reason: Dyspnea) RF: 0 atenolol 50 mg tablet 1 tab PO BEDTIME RF: 0 spironolactone 50 mg tablet 1 tab PO BEDTIME RF: 0 rosuvastatin 10 mg tablet 1 tab PO BEDTIME RF: 0 cholecalciferol (vitamin D3) 25 mcg (1,000 unit) tablet 1 tab PO QAM RF: 0 Myrbetriq 50 mg tablet extended release 24 hr 1 tab PO QAM RF: 0 Discharge Orders: Discharge Order (Routine); Ordered 04/15/20 Ordered By: [facility] Visit Report Forms: Patient Portal Discharge page Care Plan Goals: full recovery from covid 19 Health Concerns: avoid exposing other people Plan of Treatment: No specific medication needed at this time, follow self Isolation protocol for total of 14 days from the day you were tested CDC Guidelines for home isolation: - Stay away from others - Limit contact with pets and animals: If you must care for a pet, wash your hands before and after interacting with them - Wear a mask if you are sick - Cover your mouth and nose with a tissue when you cough or sneeze. Dispose of tissues in a lined trash can and wash your hands immediately with soap and water for at least 20 seconds. If soap and water are not available, clean hands with alcohol-based hand bottle house cleaners supervisor that contains at least 60% alcohol. - Clean your hands often with soap and water for at least 20 seconds - Avoid touching your eyes, nose and mouth with unwashed hands - Do not share dishes, drinking glasses, cups, eating utensils, towels, or bedding with other people in your home. After using these items, wash them thoroughly with soap and water or put in the mining captain. - Clean high-touch surfaces in your isolation area (?sick room? and bathroom) every day; let a caregiver clean and disinfect high-touch surfaces in other areas of the home. Clean the area or item with soap and water or another detergent if it is dirty. Then, use a household disinfectant. Seek medical attention, but call first: - Seek medical care right away if your illness is worsening (for example, if you have difficulty breathing). - Call your doctor before going in: Before going to the doctor?s office or emergency room, call ahead and tell them your symptoms. They will tell you what to do. - If possible, put on a facemask before you enter the building. If you can?t put on a facemask, try to keep a safe distance from other people (at least 6 feet away). This will help protect the people in the office or waiting room. - Follow care instructions from your healthcare provider and local health department: Your local health authorities will give instructions on checking your symptoms and reporting information. Emergency warning signs for COVID-19: - Difficulty breathing or shortness of breath - Persistent pain or pressure in the chest - New confusion or inability to arouse - Bluish lips or face Additional Instructions: - per
--- NOTE | 2020-04-15 10:27 | MHC.CM.PN ---
Pt is medically ready to d/c to home: [facility] notified for start of care on 04/16: call placed to pt's spouse Ben: he is arranging for cook pickled meat today at 11am - Rachel ROBERTS notified on ISO unit: pt will be ready and in front of the main entrance for 11am today. Pt's PCP is Dr. Perry.
--- NOTE | 2020-04-15 10:58 | MHC.CM.PN ---
Per discharging MD: pt does not require [facility] services and no Face to Face will be completed. Pt returning to home after stay for COVID related complications. Pt is not O2 dependent at this time. Updated [facility] to d/c referral.
== END 2020-04-15 11:00 | disposition home or self-care (01) | DRG 177 ==
LOC: HO.ED 22:59 → HO.ISO 04-13 01:12
PROVIDERS: Internal Medicine; Admitting Provider Internal Medicine; Emergency Provider Internal Medicine; Visit Provider Internal Medicine
DX: U07.1 COVID-19 (principal); J12.89 Other viral pneumonia; J96.01 Acute respiratory failure with hypoxia; M81.0 Age-related osteoporosis without current pathological fracture; E11.9 Type 2 diabetes mellitus without complications; N32.81 Overactive bladder; E03.9 Hypothyroidism, unspecified; J45.909 Unspecified asthma, uncomplicated; Z88.0 Allergy status to penicillin; Z79.82 Long term (current) use of aspirin; Z79.84 Long term (current) use of oral hypoglycemic drugs; Z79.51 Long term (current) use of inhaled steroids; Z79.890 Hormone replacement therapy; Z79.899 Other long term (current) drug therapy
CPT/HCPCS: 0241U; 36415; 71045; 80048; 80076; 81001; 82947; 83605; 83690; 84484; 85025; 85379; 87040; 87086; 87633; 96361; 96365; 96366; 96367; 96375; 99284; 99285; J0696; J1100; J2920

== ENCOUNTER 2020-09-04 12:54 | Outpatient (REF) | payer MEDICARE, SELFPAY ==
--- NOTE | ~2020-09-04 | MM_ITS ---
EXAMINATION: MM DIAGNOSTIC DIGITAL BREAST TOMOSYNTHESIS, RIGHT CLINICAL INFORMATION: Short interval six-month follow-up probable benign regional calcifications central right breast. Family history breast cancer, paternal grandmother. The lifetime risk of breast cancer based on the Tyrer-Cuzick Model is 4%. COMPARISON: Mammography: 03/06/2020, 02/28/2020 (BI-RADS 0), 02/21/2019, 02/03/2018, 12/28/2016 TECHNIQUE: Digital breast tomosynthesis is performed in both the craniocaudal and mediolateral oblique views along with computer-aided detection (CAD). Synthesized 2D images are generated from the tomosynthesis. FINDINGS: There are scattered areas of fibroglandular density (ACR BI-RADS breast composition Category b). Parenchymal pattern is similar to prior studies. There is no developing density or interval mass or architectural abnormality. The skin contours are smooth. The regional calcifications central right breast are stable from prior diagnostic exam and likely without significant change from prior exams dating back to 2017. Right breast calcifications will be reassessed again at time of annual bilateral mammography, due in 6 months. Results are provided to the patient at time of visit by the technologist. MM/MM tomosynthesis diagnostic RT IMPRESSION: No significant changes central regional right breast calcifications. ASSESSMENT: BI-RADS 3: Probably Benign RECOMMENDATION: Diagnostic mammography at time of annual bilateral exam, due in 6 months. This patient's information was entered into a reminder system with a target due date for their next mammogram.
== END 2020-09-04 12:55 | disposition home or self-care (01) ==
LOC: HO.MAMMO 12:54
PROVIDERS: PCP Family Medicine; Visit Provider Family Medicine
DX: R92.1 Mammographic calcification found on diagnostic imaging of breast (principal); Z85.3 Personal history of malignant neoplasm of breast
CPT/HCPCS: 77061; 77065

== ENCOUNTER 2020-12-15 08:36 | Outpatient (REF) | payer MEDICARE, MEDICAID, SELFPAY ==
--- NOTE | ~2020-12-15 | XR_ITS ---
EXAMINATION: XR LUMBOSACRAL SPINE WITH OBLIQUES CLINICAL INFORMATION: Lower back pain. COMPARISON: Lumbar spine radiographs dated 01/30/2016. TECHNIQUE: AP, both oblique, and lateral views of the lumbar spine. Lateral view of the lumbosacral junction. FINDINGS: Normal vertebral body alignment. The lumbar lordosis is maintained. No acute fracture or subluxation. No loss of vertebral body height. Multilevel loss of intervertebral disc height with small endplate osteophytes, slightly progressed. Bilateral lower lumbar spine facet arthropathy, slightly progressed. No lytic or blastic osseous lesion. Atherosclerotic calcifications. XR/XR lumbar spine 4V min IMPRESSION: Multilevel degenerative disc disease with lower lumbar spine facet arthropathy, slightly progressed when compared to the radiographs from 2016.
[2020-12-15 10:12] LABS: MANUAL DIFF FLAG NO
[2020-12-15 10:17] LABS: Basophils Percent Auto 0.6 % (0-2); Eosinophils Absolute Auto 0.2 X10*3/uL (0.0-0.4); Eosinophils Percent Auto 2.5 % (0-4); Hematocrit 43.5 % (37-47); Hemoglobin 14.3 g/dl (12.0-16.0); Imm Gran Abs Auto 0.03 X10*3/uL (0.00-0.03); Imm Gran Pct Auto 0.4 % (0.0-0.4); Lymphocytes Absolute Auto 1.6 X10*3/uL (1.2-4.9); Lymphocytes Percent Auto 22.4 % (20-40); Mean Corpuscular HGB Conc 32.9 g/dl (31.0-35.0); Mean Corpuscular Hemoglobin 31.5 pg (27.0-33.0); Mean Corpuscular Volume 95.8 fL (80-98); Mean Platelet Volume 11.6 fL (9.4-12.3); Monocytes Absolute Auto 0.6 X10*3/uL (0.1-1.2); Monocytes Percent Auto 7.6 % (2-11); Neutrophils Absolute Auto 4.8 X10*3/uL (2.0-8.3); Neutrophils Percent Auto 66.5 % (45-73); Platelet Count 195 X10*3/uL (160-400); Red Blood Count 4.54 X10*6/uL (4.20-5.50); White Blood Count 7.2 X10*3/uL (4.8-10.8)
[2020-12-15 10:53] LABS: Creatinine Urine 80.95 mg/dL
[2020-12-15 10:59] LABS: Vitamin B12 473 pg/mL (200-900)
[2020-12-15 11:00] LABS: TSH reflex Free T4 7.37 uIU/mL (0.32-4.0); Vitamin D 25-OH Total 40.6 ng/mL (>30)
[2020-12-15 11:01] LABS: Alanine Aminotransferase 19 U/L (0-31); Albumin Level 4.5 g/dL (3.5-5.0); Alkaline Phosphatase 82 U/L (39-117); Anion Gap 15 (12-20); Aspartate Amino Transferase 18 U/L (5-31); Bilirubin Total 0.4 mg/dL (0.0-1.0); Blood Urea Nitrogen 15 mg/dL (9-16); Calcium 9.6 mg/dL (8.4-10.2); Carbon Dioxide 20 mmol/L (22-29); Chloride 112 mmol/L (96-108); Cholesterol 125 mg/dL; Estimated Glomerular Filt Rate > 60; Glucose Random 128 mg/dL (60-115); HDL Cholesterol 45 mg/dL; LDL Cholesterol Calculated 60 mg/dl; Potassium 4.4 mmol/L (3.3-5.1); Sodium 143 mmol/L (135-145); Triglycerides 101 mg/dL
[2020-12-15 11:32] LABS: Free T4 (Free Thyroxine) 0.98 ng/dL (0.71-1.85)
== END 2020-12-15 08:37 | disposition home or self-care (01) ==
LOC: HO.LAB 08:36
PROVIDERS: PCP Family Medicine; Visit Provider Family Medicine
DX: E11.9 Type 2 diabetes mellitus without complications (principal); I10 Essential (primary) hypertension; M54.5 Low back pain
CPT/HCPCS: 36415; 72110; 80053; 80061; 82043; 82306; 82607; 84439; 84443; 85025

== ENCOUNTER 2021-01-16 08:27 | Outpatient (REF) | payer MEDICARE, MEDICAID, SELFPAY ==
[2021-01-16 10:00] LABS: TSH reflex Free T4 6.84 uIU/mL (0.32-4.0)
[2021-01-16 10:49] LABS: Free T4 (Free Thyroxine) 0.99 ng/dL (0.71-1.85)
== END 2021-01-16 08:28 | disposition home or self-care (01) ==
LOC: HO.LAB 08:27
PROVIDERS: PCP Family Medicine; Visit Provider Family Medicine
DX: E03.9 Hypothyroidism, unspecified (principal)
CPT/HCPCS: 36415; 84439; 84443

== ENCOUNTER 2021-03-04 09:17 | Outpatient (REF) | payer MEDICARE, MEDICAID, SELFPAY ==
--- NOTE | ~2021-03-04 | US_ITS ---
EXAMINATION: US ABDOMEN COMPLETE CLINICAL INFORMATION: Hepatitis C. COMPARISON: Ultrasound abdomen 10/22/2019 and 07/12/2018. MRI abdomen 11/05/2015. TECHNIQUE: Real-time imaging of the abdominal viscera. FINDINGS: PANCREAS: Not well visualized due to bowel gas ABDOMINAL AORTA: Not well visualized due to bowel gas INFERIOR VENA CAVA: Visualized portions are normal. LIVER: The liver is normal in size. The liver contour is normal. Liver echotexture is slightly increased. No focal hepatic lesion. There is no intrahepatic biliary duct dilatation seen. GALLBLADDER: There is a small 2 x 3 mm echogenic density adjacent to the gallbladder wall probably representing a small polyp. This is unchanged from multiple prior exams. The gallbladder is otherwise normal. COMMON BILE DUCT: Normal in caliber measuring 0.4 cm in diameter. RIGHT KIDNEY: Normal. No hydronephrosis. No renal calculi or focal parenchymal lesions. The kidney measures 10.1 cm in maximum dimension. LEFT KIDNEY: Normal. No hydronephrosis. No renal calculi or focal parenchymal lesions. The kidney measures 10.4 cm in maximum dimension. SPLEEN: Normal. The spleen measures 9.0 cm in maximum dimension. FREE FLUID: None. US/US abdomen complete IMPRESSION: Slightly echogenic liver. No focal liver lesion seen. Stable small probable gallbladder wall polyp measuring 2 x 3 mm. Limited visualization of the pancreas and aorta.
[2021-03-05 10:47] LABS: Alpha Fetoprotein 5.2 ng/mL
== END 2021-03-04 09:18 | disposition home or self-care (01) ==
LOC: HO.US 09:17
PROVIDERS: PCP Family Medicine; Visit Provider Internal Medicine
DX: Z86.19 Personal history of other infectious and parasitic diseases (principal)
CPT/HCPCS: 36415; 76700; 82105

== ENCOUNTER 2021-04-10 13:05 | Outpatient (REF) | payer MEDICARE, MEDICAID, SELFPAY ==
--- NOTE | ~2021-04-10 | MM_ITS ---
EXAMINATION: MM DIAGNOSTIC DIGITAL BREAST TOMOSYNTHESIS, BILATERAL CLINICAL INFORMATION: Right breast six-month follow-up calcifications. Yearly left breast study. The lifetime risk of breast cancer based on the Tyrer-Cuzick Model is 2.6%. COMPARISON: Mammography: September 04, 2020 and studies dating back to October 07, 2011 TECHNIQUE: Digital breast tomosynthesis is performed in both the craniocaudal and mediolateral oblique views along with computer-aided detection (CAD). Synthesized 2D images are generated from the tomosynthesis. Spot magnification views of the right breast in craniocaudal and 90 degree mediolateral views also performed. FINDINGS: There are scattered areas of fibroglandular density (ACR BI-RADS breast composition Category b). There are no new significant masses, abnormal calcifications, or other abnormalities. The right breast calcifications are stable dating back to more than 2 years. Results are provided to the patient at time of visit by the technologist. MM/MM tomosynthesis diagnostic BI IMPRESSION: Stable appearance of the breast with no specific mammographic evidence to suggest malignancy. ASSESSMENT: BI-RADS 2: Benign RECOMMENDATION: Routine annual mammography screening. This patient's information was entered into a reminder system with a target due date for their next mammogram.
== END 2021-04-10 13:06 | disposition home or self-care (01) ==
LOC: HO.MAMMO 13:05
PROVIDERS: Visit Provider Family Medicine
DX: R92.1 Mammographic calcification found on diagnostic imaging of breast (principal)
CPT/HCPCS: 77062; 77066

== ENCOUNTER 2021-06-24 09:44 | Outpatient (REF) | payer MEDICARE, MEDICAID, SELFPAY ==
--- NOTE | ~2021-06-24 | XR_ITS ---
EXAMINATION: XR HIP, LEFT CLINICAL INFORMATION: Left hip pain. History of falls. COMPARISON: Radiographs lumbar spine 12/15/2020, radiographs left hip 08/21/2008 TECHNIQUE: Three views of the left hip. FINDINGS: There is total left hip arthroplasty. No fracture, dislocation, or destructive process. The hardware is intact. There is no osteolysis or periostitis. No diastases pubis or left SI joint. There are degenerative changes lumbosacral junction. XR/XR hip LT min 2V IMPRESSION: 1. Left hip arthroplasty. Hardware intact. No fracture or dislocation or osteolysis. 2. Degenerative changes lumbosacral junction.
== END 2021-06-24 09:45 | disposition home or self-care (01) ==
LOC: HO.XRAY 09:44
PROVIDERS: PCP Family Medicine; Visit Provider Family Medicine
DX: M25.552 Pain in left hip (principal); Z91.81 History of falling
CPT/HCPCS: 73502

== ENCOUNTER 2021-07-15 06:13 | Outpatient (REF) | payer MEDICARE, MEDICAID, SELFPAY ==
--- NOTE | ~2021-07-15 | XR_ITS ---
EXAMINATION: XR hip LT min 2V, XR pelvis 1-2V CLINICAL INFORMATION: Reason for Exam M25.552 - Pain in left hip COMPARISON: Hip radiographs 06/24/2021 TECHNIQUE: Two views of the hip. One view of the pelvis. XR/XR pelvis 1-2V FINDINGS/IMPRESSION: No acute fracture or dislocation. If clinical concern persists consider a CT hip/pelvis. Status post left total hip arthroplasty. No evidence of hardware fracture or complication. Mild degenerative changes of the right hip with acetabular spurring. Soft tissues are unremarkable.
--- NOTE | ~2021-07-15 | XR_ITS ---
EXAMINATION: XR hip LT min 2V, XR pelvis 1-2V CLINICAL INFORMATION: Reason for Exam M25.552 - Pain in left hip COMPARISON: Hip radiographs 06/24/2021 TECHNIQUE: Two views of the hip. One view of the pelvis. XR/XR hip LT min 2V FINDINGS/IMPRESSION: No acute fracture or dislocation. If clinical concern persists consider a CT hip/pelvis. Status post left total hip arthroplasty. No evidence of hardware fracture or complication. Mild degenerative changes of the right hip with acetabular spurring. Soft tissues are unremarkable.
== END 2021-07-15 06:14 | disposition home or self-care (01) ==
LOC: HO.HOSX 06:13
PROVIDERS: Visit Provider Physician Assistant
DX: M76.899 Other specified enthesopathies of unspecified lower limb, excluding foot (principal); K40.90 Unilateral inguinal hernia, without obstruction or gangrene, not specified as recurrent; Z96.642 Presence of left artificial hip joint
CPT/HCPCS: 72170; 73502; 99202

== ENCOUNTER 2021-08-27 08:37 | Outpatient (REF) | payer MEDICARE, MEDICAID, SELFPAY | END 2021-08-27 08:38 | disposition home or self-care (01) | LOC: HO.HOSX 08:37 | PROVIDERS: Visit Provider Orthopaedic Surgery | DX: Z96.642 Presence of left artificial hip joint (principal) | CPT/HCPCS: 99212 ==

== ENCOUNTER → 2021-10-14 09:26 | Outpatient (BNVA) | payer MEDICARE, MEDICAID, SELFPAY | PROVIDERS: Referring Provider Family Medicine; Visit Provider Surgery | DX: G89.29 Other chronic pain (principal); R10.32 Left lower quadrant pain; M76.899 Other specified enthesopathies of unspecified lower limb, excluding foot; M24.552 Contracture, left hip; Z96.642 Presence of left artificial hip joint | CPT/HCPCS: 99202 ==

== ENCOUNTER 2021-10-27 07:46 | Outpatient (REF) | payer MEDICARE, MEDICAID, SELFPAY ==
--- NOTE | ~2021-10-27 | CT_ITS ---
EXAMINATION: CT PELVIS WITHOUT CONTRAST CLINICAL INFORMATION: Left lower quadrant pain COMPARISON: None TECHNIQUE: Helical scanning was performed with submillimeter collimation through the pelvis. Sagittal and coronal multiplanar 2-D reconstructions were obtained. Exam was done with the patient performing Valsalva maneuver This CT examination was performed using dose optimization techniques as appropriate, variously including the following: *Automated exposure control *Adjustment of mA and/or kV according to patient size (this includes techniques or standardized protocols for targeted exams where dose is matched to indication/reason for exam; i.e. extremities or head) *Use of iterative reconstruction technique DLP: 376 mGy-cm FINDINGS: Visualized bowel is unremarkable. The bladder is normal. The uterus appears to have been removed. No pelvic mass. No ascites or adenopathy. No hernia. Atherosclerotic disease. No aneurysm. Left hip replacement. 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 Degenerative changes at L5-S1. CT/CT pelvis wo con IMPRESSION: Left hip replacement. AVN of the right femoral head. Degenerative disc disease and arthritis at the right hip.
== END 2021-10-27 07:47 | disposition home or self-care (01) ==
LOC: HO.CT 07:46
PROVIDERS: Visit Provider Surgery
DX: R10.32 Left lower quadrant pain (principal); M24.552 Contracture, left hip; G89.29 Other chronic pain; M76.899 Other specified enthesopathies of unspecified lower limb, excluding foot; Z96.642 Presence of left artificial hip joint
CPT/HCPCS: 72192

== ENCOUNTER → 2021-11-06 10:16 | Outpatient (BNVA) | payer MEDICARE, MEDICAID, SELFPAY | PROVIDERS: Visit Provider Surgery | DX: M24.552 Contracture, left hip (principal); M76.899 Other specified enthesopathies of unspecified lower limb, excluding foot; Z96.642 Presence of left artificial hip joint | CPT/HCPCS: 99212 ==

== ENCOUNTER → 2021-11-09 08:19 | Outpatient (REF) | payer OTHER, SELFPAY ==
--- NOTE | ~2021-11-09 | NM_ITS ---
EXAMINATION: THREE PHASE BONE SCAN CLINICAL INFORMATION: Left hip replacement, fell 3 months ago.. COMPARISON: No previous bone scan is available for comparison. Radiographs of the pelvis and left hip dated 07/15/[address] scan of the pelvis dated 10/27/2021 are available for comparison.. TECHNIQUE: Initial rapid sequence images were obtained over the hips and proximal femurs in the anterior and posterior projections during the bolus injection of 24 mCi Tc-99m MDP. Static images of the of the whole-body including multiple views of the pelvis and proximal femurs were then obtained 3 hours post injection. FINDINGS: Initial rapid sequence images show bilaterally symmetrical flow to the hips with no foci of abnormally increased flow present at any site. Blood pool images obtained immediately following the flow study show a subtle photopenic defect in the left hip from the patient's left hip prosthesis. No foci of abnormally increased blood pool activity are visualized. The urinary bladder and distal ureters are visualized, but the kidneys are outside the [id number] and cannot be evaluated. The delayed static images of the whole body show: In the head, there is a mild diffuse increase in activity in the frontal skull bilaterally, likely due to hyperostosis frontalis interna. In the thoracic cage and upper extremities, there is mildly increased activity in the acromioclavicular joints bilaterally and a focus of minimally increased activity is present in the lateral subacromial region of the right humeral head. There is diffusely increased activity in both wrists and mild periarticular foci of increased activity are present at multiple sites in both hands. There is mildly increased activity at the costochondral junction of the right first rib and minimally increased activity is present in the sternoclavicular joints bilaterally. In the spine, there is minimally increased activity at the costochondral junctions of the right ninth and 10th ribs likely degenerative. In the pelvis, no significant abnormalities are present. In the lower extremities, a photopenic defect from the patient's left hip prosthesis is noted. There is mildly to moderately increased activity adjacent to the distal tip of the femoral stem. There is also minimally increased activity in the intertrochanteric region. There is a mild diffuse increase in activity in both knees, and this is most prominent in the patellar compartments. There is mildly increased activity in the medial lateral malleolus of the right ankle and laterally in the mid right foot. Radiographs of the left hip dated 07/15/2021 show no abnormality that corresponds with the mildly increased activity adjacent to the femoral stem of the left hip prosthesis described above on this bone scan.. The more recent CT scan of the pelvis dated 10/27/2021 has a [id number] which does not include the distal tip of the femoral stem in the region of abnormality described above on this bone scan. NM/NM bone 3 phase IMPRESSION: 1. Diffuse abnormality of mild intensity involving several centimeters of length adjacent to the distal tip of the femoral stem of the left hip prosthesis. There is also some less intensely increased activity in the intertrochanteric region. The findings suggest prosthetic loosening, but are nonspecific. There are no flow or blood pool abnormalities present to suggest active infection as the etiology of these abnormalities. Correlation with plain radiographs is recommended for initial follow-up.. 2. A few additional mild nonspecific abnormalities are noted as described above and these are all likely arthritic or traumatic in etiology. None of these abnormalities is strongly suspicious for metastatic disease.
== END ==
LOC: HO.NUCMED 08:19
PROVIDERS: Visit Provider Orthopaedic Surgery
DX: Z96.642 Presence of left artificial hip joint (principal)
CPT/HCPCS: 78315; A9503

== ENCOUNTER 2021-12-07 08:07 | Outpatient (REF) | payer OTHER, SELFPAY ==
--- NOTE | ~2021-12-07 | XR_ITS ---
EXAMINATION: XR PELVIS CLINICAL INFORMATION: Hip pain. COMPARISON: Radiographs dated 07/15/2021. TECHNIQUE: 2 AP views of the pelvis are submitted. FINDINGS: There is bony demineralization. The right acetabular joint space is well-maintained. There is mild subchondral sclerosis and articular surface irregularity of the right acetabular roof. There is an intact left hip total arthroplasty, without hardware failure or loosening seen. The sacroiliac joints are symmetric and well-maintained. The pubic symphysis is intact. There are multiple pelvic phleboliths. There are incompletely characterized degenerative changes of the lower lumbar spine. XR/XR pelvis 1-2V IMPRESSION: 1. There is mild osteoarthritic change of the right hip. 2. There is an intact left hip total arthroplasty, without hardware failure or loosening. 3. No acute fracture or dislocation is seen. 4. There is bony demineralization. 5. There are incompletely characterized degenerative changes of the lower lumbar spine.
== END 2021-12-07 08:08 | disposition home or self-care (01) ==
LOC: HO.HOSX 08:07
PROVIDERS: Visit Provider Orthopaedic Surgery
DX: T84.031A Mechanical loosening of internal left hip prosthetic joint, initial encounter (principal)
CPT/HCPCS: 72170; 99212

== ENCOUNTER 2021-12-31 10:28 | Outpatient (REF) | payer OTHER, SELFPAY ==
[2021-12-31 14:24] LABS: Estimated Average Glucose 126 mg/dL
== END 2021-12-31 10:29 | disposition home or self-care (01) ==
LOC: HO.10HDL 10:28
PROVIDERS: Visit Provider Physician Assistant
DX: Z01.812 Encounter for preprocedural laboratory examination (principal)
CPT/HCPCS: 36415; 83036

== ENCOUNTER 2022-01-28 | Outpatient (REF) | payer OTHER, SELFPAY ==
[2022-01-28 12:11] VITALS: BP 153/68; PULSE 84; RESP 20; O2SAT 96; BMI 31.4
--- NOTE | 2022-01-28 12:25 | P.CONAN_ITS ---
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, initial encounter (Jina pedersen) Past Medical History Medical History Arthritis Asthma COVID-19 vaccination refused Diabetes GERD (gastroesophageal reflux disease) History of COVID-19 HTN (hypertension) Hyperlipidemia Hypothyroidism Mild aortic stenosis Osteoporosis Overactive bladder Palpitations PSVT (paroxysmal supraventricular tachycardia) Family History Family history of problems with anesthesia: No Surgical History Surgical History H/O colonoscopy History of total hip replacement Hx of hemorrhoidectomy Hx of hysterectomy History of Problems with Anesthesia: No Social History Social History Household Members: Spouse Housing: Apartment Are you a primary healthcare administration intern to a significant other at home: No Do you presently have visiting nurse or other home services: No Alcohol intake: never Patient Tobacco Use Status: Former Tobacco user Quit Date: >25 yr ago Tobacco use type: Cigarette Advance Directives Date on File: 05/06/19 service: No Current occupational status: retired Narrative Narrative: No recent illness (seasonal allergies last week) No CP/SOB within limits of pain Meds Allergies Allergy/AdvReac Type Severity Reaction Status Date / Time Penicillins Allergy Severe swelling/hi Verified 02/04/22 11:33 ves seafood Allergy Intermediate itching/swe Verified 02/04/22 11:33 lling/hives levofloxacin [From LEVAQUIN] Allergy Mild Itching Verified 02/04/22 11:33 Home Medications Medication Instructions Recorded Confirmed Last Taken Type albuterol sulfate 2.5 mg/3 mL 1 amp inhalation QID PRN Dyspnea 04/12/20 01/28/22 Unknown History (0.083 %) solution for nebulization albuterol sulfate 90 mcg/actuation 2 puff inhalation Q4H PRN Wheezing 04/12/20 01/28/22 Unknown History aerosol inhaler (ProAir HFA) ascorbic acid (vitamin C) 500 mg 1 tab PO QAM 04/12/20 01/28/22 Unknown History tablet (Vitamin C) aspirin 81 mg tablet,delayed 1 tab PO QAM 04/12/20 01/28/22 Unknown History release cholecalciferol (vitamin D3) 25 1 tab PO QAM 04/12/20 01/28/22 Unknown History mcg (1,000 unit) tablet diltiazem HCl 240 mg 1 cap PO QAM 04/12/20 01/28/22 Unknown History capsule,extended release 24 hr (Cartia XT) fluticasone propionate 50 1 - 2 spray intranasal DAILY PRN 04/12/20 01/28/22 Unknown History mcg/actuation nasal Dyspnea spray,suspension furosemide 20 mg tablet 1 tab PO QAM 04/12/20 01/28/22 Unknown History lisinopril 10 mg tablet 1 tab PO QPM 04/12/20 01/28/22 Unknown History metformin 500 mg tablet 1 tab PO BID diabetes mellitus 04/12/20 01/28/22 Unknown History omeprazole 20 mg capsule,delayed 1 cap PO QAM 04/12/20 01/28/22 Unknown History release rosuvastatin 10 mg tablet 1 tab PO BEDTIME 04/12/20 01/28/22 Unknown History spironolactone 50 mg tablet 1 tab PO BEDTIME 04/12/20 01/28/22 Unknown History fluticasone 500 mcg-salmeterol 50 1 puff inhalation BID 01/28/22 01/28/22 Unknown History mcg/dose blistr powdr for inhalation levothyroxine 100 mcg tablet 1 tab PO QAM 01/28/22 01/28/22 Unknown History montelukast 10 mg tablet 1 tab PO BEDTIME 01/28/22 01/28/22 Unknown History solifenacin 10 mg tablet 10 mg PO QAM 01/28/22 01/28/22 Unknown History Exam Exam Date and Time: January 28, 2022 1225 Height,Weight and Vital Signs: Height 4 ft 9.5 in Weight 67.132 kg Last Vital Signs Pulse 84 01/28/22 12:11 Resp 20 01/28/22 12:11 BP 153/68 H 01/28/22 12:11 Pulse Ox 96 01/28/22 12:11 O2 Del Method 01/28/22 12:11 Pertinent Lab Results Pertinent Lab Results: From outside facility 01/21/22 CBC and BMP all WNL Narrative Narrative: EKG 12/2021 SR with 1st deg AV block Marked LAD ECHO 11/2021 Nml LV function LV sys function nml with EF 60-65% Mild AR Mild , MIKIE 0.9cm2 Moderate thickening of anterior mitral valve leaflet Mild pulm htn Nuc Stress 11/2021 Nml myocard perfusion imaging with small area of mild intensity fixed defect noted in anteroseptal apical syed without any associated wall motion abnormality suggestive of soft tissue attenuation artifact. Nml LV size and function with estimated LVEF 59%. No significant WMA. EKG portion negative. Airway Mallampati Class: II TM Dist: >3cm Neck ROM: Full Loose/Missing/Broken Teeth: No (Crowned lower right molar) Heart: RRR +M (known ) Lungs: CTAB Assessment and Plan Assessment Anesthesia Assessment: Anesthesia Plan Discussed and PAT Visit Final Anesthetic Review Family History of Problems with Anesthesia: No History of Problems with Anesthesia: No
[2022-01-28 14:54] LABS: MRSA Nasal PCR NEGATIVE (Negative); SA Nasal PCR NEGATIVE (Negative)
== END 2022-01-28 00:01 | disposition home or self-care (01) ==
LOC: HO.PAT
PROVIDERS: Physician Assistant; Visit Provider Orthopaedic Surgery
DX: Z53.8 Procedure and treatment not carried out for other reasons (principal); T84.031A Mechanical loosening of internal left hip prosthetic joint, initial encounter; I44.0 Atrioventricular block, first degree
CPT/HCPCS: 86850; 86900; 86901; 87640; 87641

== ENCOUNTER → 2022-02-04 11:21 | Outpatient (BNVA) | payer OTHER, SELFPAY | PROVIDERS: Visit Provider Orthopaedic Surgery | DX: M54.16 Radiculopathy, lumbar region (principal); Z96.642 Presence of left artificial hip joint | CPT/HCPCS: 99212 ==

== ENCOUNTER → 2022-05-24 11:23 | Outpatient (BNVA) | payer OTHER, SELFPAY | PROVIDERS: PCP Family Medicine; Visit Provider Anesthesiology | DX: G89.4 Chronic pain syndrome (principal); G58.8 Other specified mononeuropathies | CPT/HCPCS: 99202 ==

== ENCOUNTER 2022-06-15 06:13 | Outpatient (REF) | payer OTHER, SELFPAY ==
--- NOTE | ~2022-06-15 | FL_ITS ---
EXAMINATION: XR FLUOROSCOPY WITH IMAGES CLINICAL INFORMATION: G58.8 - Other specified mononeuropathies COMPARISON: None. TECHNIQUE: Fluoroscopy Supervised By: Dr. Logan Khanna. Fluoroscopy Time: 0.5 minutes. Cumulative Dose: 19.9 mGy. DAP: 5.42 Gycm2. Images: 2. FINDINGS: There is spinal needle with tip overlying the inferior aspect lower right rib, likely posterior medial 11th. There is contrast along the rib contour and soft tissues. No visible vascular communication. FL/FL guidance in treatment room IMPRESSION: Fluoroscopy for pain management procedure.
== END 2022-06-15 06:14 | disposition home or self-care (01) ==
LOC: CF 06:13
PROVIDERS: Visit Provider Anesthesiology
DX: G58.8 Other specified mononeuropathies (principal); G89.4 Chronic pain syndrome
CPT/HCPCS: 64420; 64421; J3301

== ENCOUNTER 2022-06-24 11:44 | Outpatient (REF) | payer OTHER, SELFPAY ==
[2022-06-24 14:06] LABS: MANUAL DIFF FLAG NO
[2022-06-24 14:23] LABS: Basophils Percent Auto 0.2 % (0-2); Eosinophils Percent Auto 0.4 % (0-4); Hematocrit 48.4 % (37.0-47.0); Hemoglobin 15.5 g/dl (12.0-16.0); Imm Gran Abs Auto 0.06 X10*3/uL (0.00-0.03); Imm Gran Pct Auto 0.5 % (0.0-0.4); Lymphocytes Absolute Auto 1.4 X10*3/uL (1.2-4.9); Lymphocytes Percent Auto 12.6 % (20-40); Mean Corpuscular Hemoglobin 30.8 pg (27.0-33.0); Mean Corpuscular Volume 96.2 fL (80.0-98.0); Mean Platelet Volume 11.5 fL (9.4-12.3); Monocytes Absolute Auto 0.7 X10*3/uL (0.1-1.2); Monocytes Percent Auto 6.1 % (2-11); Neutrophils Percent Auto 80.2 % (45-73); Platelet Count 207 X10*3/uL (160-400); Red Blood Count 5.03 X10*6/uL (4.20-5.50); Red Cell Distribution Width 12.7 % (11.0-16.0); White Blood Count 11.2 X10*3/uL (4.8-10.8)
[2022-06-24 14:29] LABS: Prothrombin Time 11.6 SEC (10.0-13.1)
[2022-06-24 15:13] LABS: Alanine Aminotransferase 35 U/L (0-31); Albumin Level 4.2 g/dL (3.5-5.0); Alkaline Phosphatase 83 U/L (39-117); Aspartate Amino Transferase 15 U/L (5-31); Bilirubin Direct 0.2 mg/dL (0.0-0.5); Bilirubin Total 0.6 mg/dL (0.0-1.0); Total Protein 6.5 g/dL (6.5-8.0)
[2022-06-28 14:08] LABS: Alpha Fetoprotein 4.7 ng/mL
[2022-06-30 15:33] LABS: FIB-ALT 30 U/L (6-29); FIB-Alpha-2-Macroglobulin 285 mg/dL (106-279); FIB-Apolipoprotein A1 168 mg/dL (101-198); FIB-GGT 33 U/L (3-65); FIB-Haptoglobin 263 mg/dL (43-212); FIB-Total Bilirubin 0.2 mg/dL (0.2-1.2); Liver Fibrosis Score 0.19; Liver Fibrosis Stage F0; Nec Inflam Act Grade A0; Nec Inflam Act Score 0.13
== END 2022-06-24 11:45 | disposition home or self-care (01) ==
LOC: HO.10HDL 11:44
PROVIDERS: Visit Provider Internal Medicine
DX: K74.00 Hepatic fibrosis, unspecified (principal); Z86.19 Personal history of other infectious and parasitic diseases
CPT/HCPCS: 36415; 80076; 81596; 82105; 85025; 85610

== ENCOUNTER 2022-07-08 11:21 | Outpatient (REF) | payer OTHER, SELFPAY ==
--- NOTE | ~2022-07-08 | XR_ITS ---
EXAMINATION: XR CHEST CLINICAL INFORMATION: Cough COMPARISON: Chest radiographs 04/12/2020, 05/14/2019; MR abdomen 11/05/2015. TECHNIQUE: 2 views of the chest were obtained. FINDINGS: The cardiopericardial silhouette is prominent, similar to prior exams. The vascularity is normal. There is no vascular congestion, airspace consolidation, or effusion. Chronic opacity at the left lateral base adjacent to cardiac apex corresponds to epicardial areolar tissue on MRI and finding is similar to prior radiographs. The hilar and mediastinal contours and bony structures are stable. XR/XR chest 2V IMPRESSION: No acute intrathoracic disease.
== END 2022-07-08 11:22 | disposition home or self-care (01) ==
LOC: HO.XRAY 11:21
PROVIDERS: PCP Family Medicine; Visit Provider Family Medicine
DX: R05.9 Cough, unspecified (principal)
CPT/HCPCS: 71046

== ENCOUNTER → 2022-07-12 10:04 | Outpatient (BNVA) | payer OTHER, SELFPAY | PROVIDERS: PCP Family Medicine; Visit Provider Anesthesiology | DX: G58.8 Other specified mononeuropathies (principal); G89.4 Chronic pain syndrome | CPT/HCPCS: 99212 ==

== ENCOUNTER 2022-07-30 09:14 | Outpatient (REF) | payer OTHER, SELFPAY ==
--- NOTE | ~2022-07-30 | US_ITS ---
EXAMINATION: US COMPLETE ABDOMEN WITH LIVER ELASTOGRAPHY CLINICAL INFORMATION: History of hepatitis C. Liver fibrosis. COMPARISON: Previous abdominal ultrasound most recent March 2021 and MRI of the abdomen October 2015 TECHNIQUE: Real-time imaging of the abdominal viscera. Noninvasive ultrasound liver fibrosis assessment is performed using Becky ElastPQ point quantification shear wave elastography (2D-SWE) with a C5-2 MHz transducer. Multiple elastography samples are obtained. FINDINGS: PANCREAS: The visualized pancreatic head and body are normal in appearance. The remainder of the pancreas is obscured from visualization by the overlying bowel gas. ABDOMINAL AORTA: The proximal, middle, and distal aortic segments are normal in caliber. INFERIOR VENA CAVA: Visualized portions are normal. LIVER: Liver echotexture is increased and slightly heterogeneous suggestive of hepatocellular disease. No definite evidence of cirrhosis. No focal lesion or intrahepatic biliary duct dilatation. The right lobe measures 17 cm in length. The left lobe measures 7 cm in length. Portal flow is normal/hepatopedal Shear wave liver elastography median stiffness is 1.7 m/s (reference: normal median stiffness is 1.3 m/s or less). IQR/median stiffness to assess sampling precision is 0.15 (reference: good quality data set is IQR/median stiffness of 0.15 or less). GALLBLADDER: Gallbladder is normal in size. There is a 5 x 2 mm echogenic focus adjacent to the gallbladder wall. This is similar to previous exam March 2021 and probably represents a small polyp. Gallbladder wall is normal in thickness. No pericholecystic fluid. COMMON BILE DUCT: Normal in caliber measuring 0.4 cm in diameter. RIGHT KIDNEY: Normal. No hydronephrosis. No renal calculi or focal parenchymal lesions. The kidney measures 9.5 cm in maximum dimension. LEFT KIDNEY: Normal. No hydronephrosis. No renal calculi or focal parenchymal lesions. The kidney measures 10.4 cm in maximum dimension. SPLEEN: Normal. The spleen measures 8 cm in maximum dimension. FREE FLUID: None. US/US abdomen comp w elastography IMPRESSION: 1. Impression: Echogenic heterogeneous liver suggestive of hepatocellular disease. No evidence of cirrhosis or focal lesion. Probable small gallbladder wall polyp. Limited visualization of the pancreas. 2. Liver elastography: Adequate liver sampling. Suggestive of compensated advanced chronic liver disease but need further test for confirmation. REFERENCE: Society of Radiologists in Ultrasound Liver Stiffness Thresholds (2020): LIVER STIFFNESS THRESHOLDS: *Liver Stiffness equal or less than 1.3 m/s: High probability of being normal. *Liver Stiffness less than 1.7 m/s: In the absence of other known clinical signs, rules out compensated advanced chronic liver disease. *Liver Stiffness 1.7-2.1 m/s: Suggestive of compensated advanced chronic liver disease but need further test for confirmation. *Liver Stiffness over 2.1 m/s: Rules in compensated advanced chronic liver disease. *Liver Stiffness over 2.4 m/s: Suggestive of clinically significant portal hypertension. QUALITY OF DATA SET: *IQR/Median value equal or less than 0.15 implies a quality data set. *IQR/Median value over 0.15 implies a poor quality data set. SIGNIFICANT CHANGE FROM PRIOR EXAM: Significant change if liver stiffness measurement is 10% or greater from prior exam. OTHER CONSIDERATIONS: The stage of liver fibrosis may be overestimated in the setting of acute hepatitis, liver inflammation, elevated liver function tests, hepatic vascular congestion, obstructive cholestasis, non-fasting state, and infiltrative diseases such as amyloidosis and lymphoma. In some patients with NAFLD, the liver stiffness thresholds for compensated advanced chronic liver disease may be lower. In causes other than viral hepatitis and NAFLD, liver stiffness thresholds are not well established.
== END 2022-07-30 09:15 | disposition home or self-care (01) ==
LOC: HO.US 09:14
PROVIDERS: PCP Family Medicine; Visit Provider Internal Medicine
DX: K74.00 Hepatic fibrosis, unspecified (principal); Z86.19 Personal history of other infectious and parasitic diseases
CPT/HCPCS: 76705; 76981

== ENCOUNTER 2022-10-25 06:15 | Day surgery (SDC) | payer OTHER, SELFPAY ==
--- NOTE | 2022-10-22 13:41 | HO.ANESPROP2 ---
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, initial encounter (Acute) Past Medical History Medical History (Updated 10/25/22 @ 06:46 by Vickie Miller RN) Arthritis Asthma COVID-19 vaccination refused Diabetes GERD (gastroesophageal reflux disease) Hepatitis C History of COVID-19 HTN (hypertension) Hyperlipidemia Hypothyroidism Mild aortic stenosis Osteoporosis Overactive bladder Palpitations PSVT (paroxysmal supraventricular tachycardia) Family History Family history of problems with anesthesia: No Surgical History Surgical History (Updated 10/25/22 @ 06:47 by Vickie Miller RN) H/O colonoscopy History of bladder surgery History of total hip replacement Hx of hemorrhoidectomy Hx of hysterectomy History of Problems with Anesthesia: No Social History Social History Household Members: Spouse Housing: Apartment Are you a primary animal care worker to a significant other at home: No Do you presently have visiting nurse or other home services: No Alcohol intake: never Patient Tobacco Use Status: Former Tobacco user Quit Date: 30 YRS AGO Tobacco use type: Cigarette Use of substances other than those prescribed or required for medical reasons: No Are you DNR?: No Advance Directives: No Advance Directives Information Provided: Yes Advance Directives Date on File: 05/06/19 service: No Current occupational status: retired Meds Allergies Allergy/AdvReac Type Severity Reaction Status Date / Time Penicillins Allergy Severe swelling/hi Verified 10/25/22 06:47 ves seafood Allergy Intermediate itching/swe Verified 10/25/22 06:47 lling/hives levofloxacin [From LEVAQUIN] Allergy Mild Itching Verified 10/25/22 06:47 Home Medications Medication Instructions Recorded Confirmed Last Taken Type albuterol sulfate 2.5 mg/3 mL 1 amp inhalation QID PRN Dyspnea 04/12/20 10/25/22 Unknown History (0.083 %) solution for nebulization albuterol sulfate 90 mcg/actuation 2 puff inhalation Q4H PRN Wheezing 04/12/20 10/25/22 Unknown History aerosol inhaler (ProAir HFA) ascorbic acid (vitamin C) 500 mg 1 tab PO QAM 04/12/20 10/25/22 Unknown History tablet (Vitamin C) aspirin 81 mg tablet,delayed 1 tab PO QAM 04/12/20 10/25/22 Unknown History release cholecalciferol (vitamin D3) 25 1 tab PO QAM 04/12/20 10/25/22 Unknown History mcg (1,000 unit) tablet diltiazem HCl 240 mg 1 cap PO QAM 04/12/20 10/25/22 Unknown History capsule,extended release 24 hr (Cartia XT) fluticasone propionate 50 1 - 2 spray intranasal DAILY PRN 04/12/20 10/25/22 Unknown History mcg/actuation nasal Dyspnea spray,suspension furosemide 20 mg tablet 1 tab PO QAM 04/12/20 10/25/22 Unknown History lisinopril 10 mg tablet 1 tab PO QPM 04/12/20 10/25/22 Unknown History metformin 500 mg tablet 1 tab PO BID diabetes mellitus 04/12/20 10/25/22 Unknown History omeprazole 20 mg capsule,delayed 1 cap PO QAM 04/12/20 10/25/22 Unknown History release rosuvastatin 10 mg tablet 1 tab PO BEDTIME 04/12/20 10/25/22 Unknown History spironolactone 50 mg tablet 1 tab PO BEDTIME 04/12/20 10/25/22 Unknown History fluticasone 500 mcg-salmeterol 50 1 puff inhalation BID 01/28/22 10/25/22 Unknown History mcg/dose blistr powdr for inhalation levothyroxine 100 mcg tablet 1 tab PO QAM 01/28/22 10/25/22 Unknown History montelukast 10 mg tablet 1 tab PO BEDTIME 01/28/22 10/25/22 Unknown History solifenacin 10 mg tablet (Vesicare) 10 mg PO QAM 01/28/22 10/25/22 Unknown History acetaminophen 650 mg 650 mg PO Q8H PRN mild pain 07/12/22 10/25/22 Unknown History tablet,extended release cetirizine 10 mg tablet 10 mg PO QAM 07/12/22 10/25/22 Unknown History Exam Exam Date and Time: October 22, 2022 1341 Assessment and Plan Assessment Anesthesia Assessment: Chart Reviewed Final Anesthetic Review Family History of Problems with Anesthesia: No History of Problems with Anesthesia: No Documented by User: Ruddy Huang MD 10/25/22 07:34 [facility] Past Medical History Medical History (Updated 10/25/22 @ 06:46 by Vickie Miller RN) Arthritis Asthma COVID-19 vaccination refused Diabetes GERD (gastroesophageal reflux disease) Hepatitis C History of COVID-19 HTN (hypertension) Hyperlipidemia Hypothyroidism Mild aortic stenosis Osteoporosis Overactive bladder Palpitations PSVT (paroxysmal supraventricular tachycardia) Surgical History Surgical History (Updated 10/25/22 @ 06:47 by Vickie Miller RN) H/O colonoscopy History of bladder surgery History of total hip replacement Hx of hemorrhoidectomy Hx of hysterectomy Social History Social History Household Members: Spouse Housing: Apartment Are you a primary animal care worker to a significant other at home: No Do you presently have visiting nurse or other home services: No Alcohol intake: never Patient Tobacco Use Status: Former Tobacco user Quit Date: 30 YRS AGO Tobacco use type: Cigarette Use of substances other than those prescribed or required for medical reasons: No Are you DNR?: No Advance Directives: No Advance Directives Information Provided: Yes Advance Directives Date on File: 05/06/19 service: No Current occupational status: retired Meds Allergies Allergy/AdvReac Type Severity Reaction Status Date / Time Penicillins Allergy Severe swelling/hi Verified 10/25/22 06:47 ves seafood Allergy Intermediate itching/swe Verified 10/25/22 06:47 lling/hives levofloxacin [From LEVAQUIN] Allergy Mild Itching Verified 10/25/22 06:47 Home Medications Medication Instructions Recorded Confirmed Last Taken Type albuterol sulfate 2.5 mg/3 mL 1 amp inhalation QID PRN Dyspnea 04/12/20 10/25/22 Unknown History (0.083 %) solution for nebulization albuterol sulfate 90 mcg/actuation 2 puff inhalation Q4H PRN Wheezing 04/12/20 10/25/22 Unknown History aerosol inhaler (ProAir HFA) ascorbic acid (vitamin C) 500 mg 1 tab PO QAM 04/12/20 10/25/22 Unknown History tablet (Vitamin C) aspirin 81 mg tablet,delayed 1 tab PO QAM 04/12/20 10/25/22 Unknown History release cholecalciferol (vitamin D3) 25 1 tab PO QAM 04/12/20 10/25/22 Unknown History mcg (1,000 unit) tablet diltiazem HCl 240 mg 1 cap PO QAM 04/12/20 10/25/22 Unknown History capsule,extended release 24 hr (Cartia XT) fluticasone propionate 50 1 - 2 spray intranasal DAILY PRN 04/12/20 10/25/22 Unknown History mcg/actuation nasal Dyspnea spray,suspension furosemide 20 mg tablet 1 tab PO QAM 04/12/20 10/25/22 Unknown History lisinopril 10 mg tablet 1 tab PO QPM 04/12/20 10/25/22 Unknown History metformin 500 mg tablet 1 tab PO BID diabetes mellitus 04/12/20 10/25/22 Unknown History omeprazole 20 mg capsule,delayed 1 cap PO QAM 04/12/20 10/25/22 Unknown History release rosuvastatin 10 mg tablet 1 tab PO BEDTIME 04/12/20 10/25/22 Unknown History spironolactone 50 mg tablet 1 tab PO BEDTIME 04/12/20 10/25/22 Unknown History fluticasone 500 mcg-salmeterol 50 1 puff inhalation BID 01/28/22 10/25/22 Unknown History mcg/dose blistr powdr for inhalation levothyroxine 100 mcg tablet 1 tab PO QAM 01/28/22 10/25/22 Unknown History montelukast 10 mg tablet 1 tab PO BEDTIME 01/28/22 10/25/22 Unknown History solifenacin 10 mg tablet (Vesicare) 10 mg PO QAM 01/28/22 10/25/22 Unknown History acetaminophen 650 mg 650 mg PO Q8H PRN mild pain 07/12/22 10/25/22 Unknown History tablet,extended release cetirizine 10 mg tablet 10 mg PO QAM 07/12/22 10/25/22 Unknown History Exam Airway Mallampati Class: III TM Dist: >3cm Neck ROM: Limited Heart: rrr Lungs: cta Assessment and Plan Assessment Anesthesia Assessment: Anesthesia Plan Discussed Final Anesthetic Review NPO: Yes ASA Class: III Final Preanesthetic Review: No Changes in Pt Med Stat, Meds/Allgs Chart Reviewed, Consent Obtained/Reviewed and Anes Risks/Benef Reviewed Patient Risk: Intermediate Procedure Risk: Low Anesthetic Plan Anesthetic Plan: MAC: and Agree w/ Assess. and Plan Disposition: Standard PACU
[2022-10-25 06:47] VITALS: BMI 36.8
[2022-10-25 07:05] VITALS: BP 164/66; PULSE 81; RESP 16; TEMP 36.2; O2SAT 97
[2022-10-25 07:10] LABS: Glucose, Whole Blood 133 mg/dL (60-115)
[2022-10-25] MEDS: Lactated Ringers 1,000 ML 100 ML IVCONT (07:16)
[2022-10-25 08:19] VITALS: BP 100/42; PULSE 61; RESP 16; TEMP 36.4; O2SAT 96
--- NOTE | 2022-10-25 08:26 | PM.OP ---
Brief Operative Note Date of Service: 10/25/22 Pre-op diagnosis: Screening Post-op diagnosis: other (Diverticulosis) Procedure: Colonoscopy to the cecum Surgeon: Varun Alvarez Anesthesia: MAC Was an [employer] Management Sales Consultant used for this Procedure?: No Estimated blood loss (mL): 0 Pathology: none sent Condition: stable Disposition: PACU
[2022-10-25 08:34] VITALS: BP 109/61; PULSE 60; RESP 16; O2SAT 97
[2022-10-25 08:49] VITALS: BP 149/71; PULSE 63; RESP 16; TEMP 36.2; O2SAT 97
--- NOTE | 2022-10-25 09:14 | OP_ITS ---
DATE OF SERVICE: 10/25/2022 SURGEON: Varun Alvarez MD INDICATIONS: The patient presents for evaluation of colorectal cancer screening. Full consent has been obtained from her for this, including risks of bleeding and perforation. PREOPERATIVE DIAGNOSIS: Colorectal cancer screening. POSTOPERATIVE DIAGNOSIS: PROCEDURE PERFORMED: Colonoscopy to the cecum and terminal ileum. ESTIMATED BLOOD LOSS: COMPLICATIONS: ANESTHESIA: Monitored anesthesia care. ASSISTANTS: SPECIMENS: POSTOPERATIVE DIAGNOSES: Sigmoid diverticulosis and internal hemorrhoids. DESCRIPTION OF PROCEDURE: The patient was placed in the left lateral decubitus position. The digital rectal exam revealed no abnormalities. The Olympus video pediatric colonoscope was entered into the rectum and advanced easily to the cecum. Once in the cecum, I did identify cecal pouch with a normal-appearing ileocecal valve and transillumination of light deep in the right lower quadrant. The terminal ileum was cannulated and appeared normal. The scope withdrawn back in the colon. About 50% of the cecum including the appendiceal orifice was obscured by residual vegetable matter. Attempts at irrigation and suctioning were not successful. Portions of the cecum, I did visualize were all normal. The scope was then slowly withdrawn assessing all mucosal surfaces carefully. Preparation was excellent. I did not visualize any polyps, colitis, or angiodysplasia. There was a mild amount of sigmoid diverticulosis. In the rectum, scope was retroflexed visualizing internal hemorrhoids, but no other pathology. The rectal mucosa appeared normal. Scope was straightened and withdrawn from the patient. She tolerated the procedure well and was returned to recovery area in stable condition. IMPRESSION: 1. Sigmoid diverticulosis. 2. Internal hemorrhoids. PLAN: Given the negative exam, I do not think she will need any further screening colonoscopies. While the entire cecum was not visualized, she is otherwise asymptomatic. She has a normal hemoglobin. I do not think any further evaluation of the colon is needed based on all of that. Her recent abdominal ultrasound early this year was negative for any sign of liver mass nor definitive cirrhosis. Her laboratories including alpha fetoprotein and liver profile were normal. She was advised to see me in 1 year for followup in regard to the underlying liver disease. MD CHAIM Moise/JAYCE / [id number] [facility]
== END 2022-10-25 09:30 | disposition home or self-care (01) ==
PROVIDERS: PCP Family Medicine; Visit Provider Internal Medicine
PROC: 0DJD8ZZ Inspection of Lower Intestinal Tract, Via Natural or Artificial Opening Endoscopic (ICD-10-PCS; CPT 45378; principal; 2022-10-25 07:30)
DX: Z12.11 Encounter for screening for malignant neoplasm of colon (principal); K57.30 Diverticulosis of large intestine without perforation or abscess without bleeding; K64.8 Other hemorrhoids; E11.9 Type 2 diabetes mellitus without complications; I10 Essential (primary) hypertension; E78.5 Hyperlipidemia, unspecified; K21.9 Gastro-esophageal reflux disease without esophagitis; B19.20 Unspecified viral hepatitis C without hepatic coma; G47.30 Sleep apnea, unspecified; Z99.89 Dependence on other enabling machines and devices; Z79.899 Other long term (current) drug therapy; Z87.891 Personal history of nicotine dependence; Z79.82 Long term (current) use of aspirin; Z79.84 Long term (current) use of oral hypoglycemic drugs
CPT/HCPCS: 45378; 82947

== ENCOUNTER 2022-11-29 10:37 | Outpatient (REF) | payer OTHER, SELFPAY ==
[2022-11-29 12:44] LABS: Anion Gap 17 (12-20); Blood Urea Nitrogen 16 mg/dL (9-16); Calcium 9.7 mg/dL (8.4-10.2); Carbon Dioxide 20 mmol/L (22-29); Chloride 112 mmol/L (96-108); Cholesterol 169 mg/dL; Estimated Glomerular Filt Rate > 60; Glucose Random 114 mg/dL (60-115); HDL Cholesterol 47 mg/dL; LDL Cholesterol Calculated 99 mg/dl; Potassium 3.9 mmol/L (3.3-5.1); Sodium 145 mmol/L (135-145); Triglycerides 116 mg/dL
[2022-11-29 13:08] LABS: Creatinine Urine 36.01 mg/dL; Microalbum/Creatinine Ratio Ur 94.4 ug/mg cr
[2022-11-30 04:41] LABS: HBS Num1 1.36 mIU/mL (0-7.99); HBc Num1 0.11 S/CO (0.00-0.79); HBsAGNum1 0.31 S/CO (0.00-0.99); Hepatitis A Antibody IgM 0.37 Index (0-0.79); Hepatitis B Core Antibody Nonreactive (Nonreactive); Hepatitis B Surface Antigen Negative (Negative); ~HepC Num1 1.94 S/CO (0.00-0.79); ~Hepatitis A Antibody IgM Nonreactive (Nonreactive); ~Hepatitis B Surface Antibody NONREACTIVE (Nonreactive); ~Hepatitis C Antibody Reactive (Nonreactive)
[2022-11-30 19:28] LABS: HCV Log PCR <1.18 NOT DETECTED Log IU/mL (NOT DETECTED); HepC Viral Load <15 NOT DETECTED IU/mL (NOT DETECTED)
== END 2022-11-29 10:38 | disposition home or self-care (01) ==
LOC: HO.HHCL 10:37
PROVIDERS: Visit Provider Family Medicine
DX: E11.9 Type 2 diabetes mellitus without complications (principal); Z79.4 Long term (current) use of insulin
CPT/HCPCS: 36415; 80048; 80061; 82043; 86704; 86706; 86709; 86803; 87340; 87522

== ENCOUNTER 2023-01-28 10:09 | Outpatient (REF) | payer OTHER, SELFPAY ==
--- NOTE | ~2023-01-28 | XR_ITS ---
EXAMINATION: XR THORACOLUMBAR SPINE CLINICAL INFORMATION: Midline thoracic spine pain. COMPARISON: Thoracic spine radiographs dated 06/25/2016. TECHNIQUE: 3 AP and lateral views of the thoracic spine are submitted. FINDINGS: The vertebral heights are normal. There is a very mild lower thoracic levoscoliosis. The thoracic disc spaces are relatively well maintained. No acute fracture or spondylolisthesis is seen. There is multi-level thoracolumbar spondylosis, most pronounced leftward at T8-T9 and through T10-T11. The surrounding prevertebral soft tissues are unremarkable. There are aortic atherosclerotic calcifications. XR/XR thoracic spine 2V IMPRESSION: 1. No acute fracture or spondylolisthesis is seen. 2. The thoracic disc spaces are well-maintained. 3. There is multi-level thoracic and upper lumbar spondylosis. 4. There is a mild lower thoracic scoliosis.
[2023-01-28 11:53] LABS: Anion Gap 17 (12-20); Blood Urea Nitrogen 26 mg/dL (9-16); Carbon Dioxide 22 mmol/L (22-29); Chloride 107 mmol/L (96-108); Estimated Glomerular Filt Rate > 60; Glucose Random 136 mg/dL (60-115); Potassium 4.4 mmol/L (3.3-5.1); Sodium 142 mmol/L (135-145)
[2023-01-28 12:13] LABS: Microalbum/Creatinine Ratio Ur 19.8 ug/mg cr (<30)
== END 2023-01-28 10:10 | disposition home or self-care (01) ==
LOC: HO.HHCL 10:09
PROVIDERS: Visit Provider Family Medicine
DX: I10 Essential (primary) hypertension (principal); E11.9 Type 2 diabetes mellitus without complications; Z79.4 Long term (current) use of insulin
CPT/HCPCS: 36415; 72070; 80048; 82043; 82570

== ENCOUNTER → 2023-02-14 09:43 | Outpatient (REF) | payer OTHER, SELFPAY ==
--- NOTE | ~2023-02-14 | NM_ITS ---
Lexiscan Myocardial perfusion study Indication: Chest pain, assess for coronary disease and ischemia Technique: The patient was brought in for a Lexiscan perfusion study on 02/14/2023 and was injected 0.4 mg of Lexiscan intravenously. Within a minute of this injection 25 mCi of sestamibi was given intravenously. Images were obtained using the SPECT gamma camera interlaced with the gating device. Images were obtained in supine position. Resting perfusion study was performed on 02/15/2023. Patient was administered 25 mCi of sestamibi intravenously at rest. Images were then obtained in supine position. Images were processed with the software and compared side to side in short axis, horizontal long axis and vertical long axis views. Total DLP 97mGy-cm. Findings: Raw acquisition reviewed. The stress perfusion study showed no significant perfusion defects. Both uncorrected as well as CT attenuation corrected images were reviewed. The gated study shows normal LV systolic function with calculated LVEF of 67%. LV cavity is normal in size. The gated study shows normal wall thickening and contraction of segments. Resting study shows no significant perfusion defects. Gating at rest reveals normal wall motion with ejection fraction at > 70%. The findings are consistent with no clear reversible or fixed perfusion defects. NM/NM caden perf SPECT rest & str Impression: 1. Myocardial perfusion imaging study shows probably normal myocardial perfusion. 2. Gated LVEF is 67% during stress; > 70% during rest. 3. Transient ischemic dilatation not present. EKG component of the test reported separately.
--- NOTE | 2023-02-14 09:46 | CA_ITS ---
Acquisition Time: 2023-02-14 10:16:11 Total Exercise Time: 00:02:00 Test Indications: CP Medications: ASA ADVAIR LEVOTHYROXINE SPIRONALACTONE LORATADINE DILTIAZEM FUROSEMIDE LISINOPRIL ATENOLOL Protocol: LEXISCAN Max HR: 098 BPM 67% of Pred: 145 BPM Max BP: 126/060 mmHG Max Work Load: 1.0 METS Pharmacological stress test with Lexiscan injection while sitting and kicking her legs, without anginal symptoms, with isolated PVCs, with normtoensive response to injection, with nondiagnoistic EKGs. Nuclear images pending. Test reviewed with Dr. Verduzco. Referred By: Ty Moctezuma Overread By: Autumn Hsu
== END ==
LOC: HO.CARD 09:43
PROVIDERS: PCP Family Medicine; Visit Provider Internal Medicine Cardiovascular Disease
DX: R07.9 Chest pain, unspecified (principal)
CPT/HCPCS: 78452; 93017; A9500; J0280; J2785

== ENCOUNTER → 2023-02-14 09:46 | Outpatient (BNV) | payer OTHER, SELFPAY | PROVIDERS: PCP Family Medicine; Visit Provider Nurse Practitioner | DX: R07.9 Chest pain, unspecified (principal) | CPT/HCPCS: 78452; 93016; 93018 ==

== ENCOUNTER 2023-03-28 09:26 | Outpatient (REF) | payer OTHER, SELFPAY ==
--- NOTE | ~2023-03-28 | MM_ITS ---
EXAMINATION: MM SCREENING DIGITAL BREAST TOMOSYNTHESIS, BILATERAL CLINICAL INFORMATION: Screening. Asymptomatic. COMPARISON: Mammography: This study is compared with prior exams dating back to 2019. TECHNIQUE: Digital breast tomosynthesis is performed in both the craniocaudal and mediolateral oblique views along with computer-aided detection (CAD). Synthesized 2D images are generated from the tomosynthesis. FINDINGS: There are scattered areas of fibroglandular density (ACR BI-RADS breast composition Category b). There are no significant masses, abnormal calcifications, or other abnormalities. There are unchanged calcifications in the right breast which are benign. MM/MM tomosynthesis screening BI IMPRESSION: No mammographic evidence of malignancy. ASSESSMENT: BI-RADS BI-RADS 2 - Benign Findings RECOMMENDATION: Routine annual mammography screening. 1 year F/U This examination should not preclude the clinical evaluation of a suspicious palpable abnormality. This patient's information was entered into a reminder system with a target due date for their next mammogram.
== END 2023-03-28 09:27 | disposition home or self-care (01) ==
LOC: HO.MAMMO 09:26
PROVIDERS: PCP Family Medicine; Visit Provider Family Medicine
DX: Z12.31 Encounter for screening mammogram for malignant neoplasm of breast (principal)
CPT/HCPCS: 77063; 77067

== ENCOUNTER → 2023-03-28 09:45 | Outpatient (BNV) | payer OTHER, SELFPAY | PROVIDERS: PCP Family Medicine; Visit Provider Radiology Diagnostic Radiology | DX: Z12.31 Encounter for screening mammogram for malignant neoplasm of breast (principal) | CPT/HCPCS: 77063; 77067 ==

== ENCOUNTER 2023-07-25 12:11 | Outpatient (REF) | payer OTHER, SELFPAY ==
[2023-07-25 14:36] LABS: Creatinine Urine 43.75 mg/dL; Microalbum/Creatinine Ratio Ur 77.7 ug/mg cr (<30)
[2023-07-25 14:43] LABS: Alanine Aminotransferase 21 U/L (0-31); Albumin Level 4.4 g/dL (3.5-5.0); Alkaline Phosphatase 101 U/L (39-117); Anion Gap 14 (12-20); Aspartate Amino Transferase 18 U/L (5-31); Bilirubin Direct 0.1 mg/dL (0.0-0.5); Bilirubin Total 0.3 mg/dL (0.0-1.0); Blood Urea Nitrogen 24 mg/dL (9-16); Calcium 9.8 mg/dL (8.4-10.2); Carbon Dioxide 21 mmol/L (22-29); Chloride 111 mmol/L (96-108); Cholesterol 168 mg/dL (<200); Estimated Glomerular Filt Rate > 60; Glucose Random 130 mg/dL (60-115); HDL Cholesterol 48 mg/dL (>40); LDL Cholesterol Calculated 91 mg/dL (<100); Potassium 4.2 mmol/L (3.3-5.1); Sodium 142 mmol/L (135-145); Total Protein 7.1 g/dL (6.5-8.0); Triglycerides 146 mg/dL (<150)
== END 2023-07-25 12:12 | disposition home or self-care (01) ==
LOC: HO.HHCL 12:11
PROVIDERS: Visit Provider Family Medicine
DX: Z00.00 Encounter for general adult medical examination without abnormal findings (principal); E11.9 Type 2 diabetes mellitus without complications; Z79.4 Long term (current) use of insulin
CPT/HCPCS: 36415; 80048; 80061; 80076; 82043; 82570

== ENCOUNTER 2023-08-23 09:36 | Outpatient (REF) | payer OTHER, SELFPAY ==
[2023-08-23 11:00] LABS: MANUAL DIFF FLAG NO
[2023-08-23 11:15] LABS: Basophils Percent Auto 0.6 % (0-2); Eosinophils Absolute Auto 0.1 X10*3/uL (0.0-0.4); Eosinophils Percent Auto 1.2 % (0-4); Hematocrit 45.6 % (37.0-47.0); Imm Gran Abs Auto 0.02 X10*3/uL (0.00-0.03); Imm Gran Pct Auto 0.3 % (0.0-0.4); Lymphocytes Percent Auto 27.1 % (20-40); Mean Corpuscular HGB Conc 32.9 g/dl (31.0-35.0); Mean Corpuscular Hemoglobin 30.7 pg (27.0-33.0); Mean Corpuscular Volume 93.4 fL (80.0-98.0); Mean Platelet Volume 10.7 fL (9.4-12.3); Monocytes Absolute Auto 0.5 X10*3/uL (0.1-1.2); Monocytes Percent Auto 7.3 % (2-11); Neutrophils Absolute Auto 4.6 x10*3/uL (2.0-8.3); Neutrophils Percent Auto 63.5 % (45-73); Platelet Count 198 X10*3/uL (160-400); Red Blood Count 4.88 X10*6/uL (4.20-5.50); Red Cell Distribution Width 12.3 % (11.0-16.0); White Blood Count 7.2 X10*3/uL (4.8-10.8)
[2023-08-23 11:16] LABS: Prothrombin Time 12.5 SEC (11.1-13.3)
[2023-08-23 11:54] LABS: Alanine Aminotransferase 17 U/L (0-31); Albumin Level 4.5 g/dL (3.5-5.0); Alkaline Phosphatase 91 U/L (39-117); Aspartate Amino Transferase 18 U/L (5-31); Bilirubin Direct 0.2 mg/dL (0.0-0.5); Bilirubin Total 0.5 mg/dL (0.0-1.0); Total Protein 7.5 g/dL (6.5-8.0)
[2023-08-25 13:33] LABS: Alpha Fetoprotein 4.3 ng/mL
[2023-09-01 18:08] LABS: FIB-ALT 15 U/L (6-29); FIB-Alpha-2-Macroglobulin 318 mg/dL (106-279); FIB-Apolipoprotein A1 168 mg/dL (101-198); FIB-GGT 26 U/L (3-65); FIB-Haptoglobin 214 mg/dL (43-212); FIB-Total Bilirubin 0.5 mg/dL (0.2-1.2); Liver Fibrosis Score 0.37; Liver Fibrosis Stage F1-F2; Nec Inflam Act Grade A0; Nec Inflam Act Score 0.06
== END 2023-08-23 09:37 | disposition home or self-care (01) ==
LOC: HO.10HDL 09:36
PROVIDERS: Visit Provider Internal Medicine
DX: K74.00 Hepatic fibrosis, unspecified (principal); Z86.19 Personal history of other infectious and parasitic diseases
CPT/HCPCS: 36415; 80076; 81596; 82105; 85025; 85610

== ENCOUNTER 2023-09-06 08:45 | Outpatient (REF) | payer OTHER, SELFPAY ==
--- NOTE | ~2023-09-06 | US_ITS ---
EXAMINATION: US COMPLETE ABDOMEN WITH LIVER ELASTOGRAPHY CLINICAL INFORMATION: Hepatitis C. COMPARISON: None available. TECHNIQUE: Real-time imaging of the abdominal viscera. Noninvasive ultrasound liver fibrosis assessment is performed using Becky ElastPQ point quantification shear wave elastography (2D-SWE) with a C5-2 MHz transducer. Multiple elastography samples are obtained. FINDINGS: PANCREAS: Normal. The visualized pancreatic head and body are normal in appearance. The remainder of the pancreas is obscured from visualization by the overlying bowel gas. ABDOMINAL AORTA: The proximal segment is normal in caliber. The middle, and distal aortic segments are largely obscured by overlapping bowel gas. INFERIOR VENA CAVA: Visualized portions are normal. LIVER: Normal. The liver demonstrates normal size, contour and increased echogenicity. No focal lesion or intrahepatic biliary duct dilatation. The right lobe measures 15.2 cm in length. The left lobe measures 9.1 cm in length. Portal flow is towards the liver (hepatopetal). Shear wave liver elastography median stiffness is 1.62 m/s (reference: normal median stiffness is 1.3 m/s or less). IQR/median stiffness to assess sampling precision is 0.39 (reference: good quality data set is IQR/median stiffness of 0.15 or less). GALLBLADDER: A 3 mm nonmobile polyp is incidentally noted. The gallbladder is physiologically distended without evidence of stones, sludge, polyps, wall thickening or pericholecystic fluid. COMMON BILE DUCT: Normal in caliber measuring 0.3 cm in diameter. RIGHT KIDNEY: At the interpolar aspect, a 1.1 cm benign, simple parapelvic cyst is seen, for which no imaging follow-up is recommended. No hydronephrosis. No renal calculi or focal parenchymal lesions. The kidney measures 9.8 cm in maximum dimension. LEFT KIDNEY: At the interpolar aspect, a 9 mm benign, simple parapelvic cysts seen, for which no imaging follow-up is recommended. No hydronephrosis. No renal calculi or focal parenchymal lesions. The kidney measures 9.0 cm in maximum dimension. SPLEEN: Normal. The spleen measures 7.9 cm in maximum dimension. FREE FLUID: None. US/US abdomen comp w elastography IMPRESSION: 1. There is generalized increase in hepatic echotexture, consistent with fatty infiltration or hepatocellular disease. Please correlate clinically. No focal hepatic mass or intrahepatic biliary dilatation is seen. 2. Liver elastography: Although measurements appear to rule out compensated advanced chronic liver disease, there is statistical variability of the sampling which decreases accuracy. 3. A 3 mm nonmobile gallbladder polyps are seen, for which no imaging follow-up is recommended. REFERENCE: Society of Radiologists in Ultrasound Liver Stiffness Thresholds (2020): LIVER STIFFNESS THRESHOLDS: *Liver Stiffness equal or less than 1.3 m/s: High probability of being normal. *Liver Stiffness less than 1.7 m/s: In the absence of other known clinical signs, rules out compensated advanced chronic liver disease. *Liver Stiffness 1.7-2.1 m/s: Suggestive of compensated advanced chronic liver disease but need further test for confirmation. *Liver Stiffness over 2.1 m/s: Rules in compensated advanced chronic liver disease. *Liver Stiffness over 2.4 m/s: Suggestive of clinically significant portal hypertension. QUALITY OF DATA SET: *IQR/Median value equal or less than 0.15 implies a quality data set. *IQR/Median value over 0.15 implies a poor quality data set. SIGNIFICANT CHANGE FROM PRIOR EXAM: Significant change if liver stiffness measurement is 10% or greater from prior exam. OTHER CONSIDERATIONS: The stage of liver fibrosis may be overestimated in the setting of acute hepatitis, liver inflammation, elevated liver function tests, hepatic vascular congestion, obstructive cholestasis, non-fasting state, and infiltrative diseases such as amyloidosis and lymphoma. In some patients with NAFLD, the liver stiffness thresholds for compensated advanced chronic liver disease may be lower. In causes other than viral hepatitis and NAFLD, liver stiffness thresholds are not well established.
== END 2023-09-06 08:46 | disposition home or self-care (01) ==
LOC: HO.US 08:45
PROVIDERS: PCP Family Medicine; Visit Provider Internal Medicine
DX: Z86.19 Personal history of other infectious and parasitic diseases (principal)
CPT/HCPCS: 76700; 76981

== ENCOUNTER 2024-03-13 09:16 | Outpatient (REF) | payer OTHER, SELFPAY ==
[2024-03-13 11:37] LABS: Alanine Aminotransferase 32 U/L (0-31); Albumin Level 4.3 g/dL (3.5-5.0); Alkaline Phosphatase 90 U/L (39-117); Aspartate Amino Transferase 36 U/L (5-31); Bilirubin Direct 0.1 mg/dL (0.0-0.5); Bilirubin Total 0.3 mg/dL (0.0-1.0); Cholesterol 136 mg/dL (<200); HDL Cholesterol 43 mg/dL (>40); LDL Cholesterol Calculated 64 mg/dL (<100); Triglycerides 147 mg/dL (<150)
[2024-03-13 12:05] LABS: Vitamin B12 422 pg/mL (200-900)
== END 2024-03-13 09:17 | disposition home or self-care (01) ==
LOC: HO.HHCL 09:16
PROVIDERS: Visit Provider Family Medicine
DX: E78.00 Pure hypercholesterolemia, unspecified (principal); E11.9 Type 2 diabetes mellitus without complications
CPT/HCPCS: 36415; 80061; 80076; 82607

== ENCOUNTER 2024-05-08 09:56 | Outpatient (REF) | payer OTHER, SELFPAY ==
[2024-05-08 12:44] LABS: Creatinine Urine 81.88 mg/dL; Microalbum/Creatinine Ratio Ur 42.7 ug/mg cr (<30)
== END 2024-05-08 09:57 | disposition home or self-care (01) ==
LOC: HO.HHCL 09:56
PROVIDERS: Visit Provider Family Medicine
DX: E11.9 Type 2 diabetes mellitus without complications (principal); Z79.4 Long term (current) use of insulin
CPT/HCPCS: 82043; 82570

== ENCOUNTER 2024-07-26 08:14 | Outpatient (REF) | payer OTHER, SELFPAY ==
[2024-07-26 11:46] LABS: Creatinine Urine 91.76 mg/dL; Microalbum/Creatinine Ratio Ur 140.5 ug/mg cr (<30)
[2024-07-26 12:01] LABS: Alanine Aminotransferase 20 U/L (0-31); Albumin Level 4.3 g/dL (3.5-5.0); Alkaline Phosphatase 86 U/L (39-117); Anion Gap 13 (12-20); Aspartate Amino Transferase 23 U/L (5-31); Bilirubin Direct 0.2 mg/dL (0.0-0.5); Bilirubin Total 0.4 mg/dL (0.0-1.0); Blood Urea Nitrogen 24 mg/dL (9-16); Calcium 9.4 mg/dL (8.4-10.2); Carbon Dioxide 22 mmol/L (22-29); Chloride 113 mmol/L (96-108); Estimated Glomerular Filt Rate > 60; Glucose Random 126 mg/dL (60-115); Potassium 3.5 mmol/L (3.3-5.1); Sodium 144 mmol/L (135-145)
== END 2024-07-26 08:15 | disposition home or self-care (01) ==
LOC: HO.HHCL 08:14
PROVIDERS: Visit Provider Family Medicine
DX: E78.00 Pure hypercholesterolemia, unspecified (principal); E11.9 Type 2 diabetes mellitus without complications; Z79.4 Long term (current) use of insulin
CPT/HCPCS: 36415; 80048; 80076; 82043; 82570

== ENCOUNTER 2024-08-23 08:23 | Outpatient (REF) | payer OTHER, SELFPAY ==
--- OUTSIDE RECORDS SUMMARY | 2024-08-23 08:40 | XMS_ITS | Encounter Summary ---
Author Organization [employer] Address [address] 7[address] [place] [address] Care Team Providers Care Content Creation Manager Name Role Phone Marisol Perry MD Primary Care Provider [phone] Fior Bhandari PharmD Unavailable Varun Alvarez MD Unavailable Ty Moctezuma MD Unavailable Jennifer Morgan OD Unavailable [phone] Reason for Visit * Reason Onset Date Comments Med Refill 08/21/2024 Encounter Details Date Type Department Care Team (Late st Contact Info) Description 08/21/2024 Telephone [facility] [address] [place], [place] [id number] Marisol Perry MD [address] [place] [address] Med Refill Social History Tobacco Use Types Packs/Day Years Used Date Smoking Tobacco: Former Cigarettes Smokeless Tobacco: Never Alcohol Use Standard Drinks/Week Comments Yes 0 (1 standard drink = 0.6 oz pur e alcohol) socially Depression Answer Date Recorded Patient Health Questionnaire-9 Score 0 07/26/2024 Patient Health Questionnaire-9 Score 0 07/26/2024 Last PHQ-9: Questionnaire Data Not on file 0 07/26/2024 Housing Stability Answer Date Recorded What is your housing situation today? I have gallo green 07/26/[address] you li ve. Do you have problems with any of the following? None of the above 07/26/2024 Food Insecurity Answer Date Recorded Within the past 12 months, y ou worried that your food would run out before you got money to buy more: Never True 07/26/2024 Within the past 12 months,th e food you bought just didn't last and you didn't have enough money to get more: Never True Transportation Answer Date Recorded In the past 12 months, has l ack of transportation kept you from medical appts, meetings, work or from getting things needed for daily living? No 07/26/2024 Utilities Answer Date Recorded In the past 12 months, has t he electric, gas, oil or water company threatened to shut off services in your home? No 07/26/2024 Depression Answer Date Recorded Patient Health Questionnaire-2 Score 0 07/26/2024 Internet Access Answer Date Recorded Internet Access Q1 No 07/26/2024 Internet Access Q2 Not on file 07/26/2024 Comments Unknown Sex and Gender Information Value Date Recorded Sex Assigned at Female 03/01/2022 10:14 AM EDT Legal Sex Female 10:14 AM EDT Gender Identity Female 03/01/2022 10:14 AM EDT Sexual Orientation Straight 03/01/2022 10 :14 AM EDT documented as of this encounter Miscellaneous Notes * Telephone Encounter - Leisa Villanueva LPN - 08/21/2024 1:32 PM EDT Received request on oxyCODONE-acetaminophen (Percocet) 5-325 MG tablet documented in this encounter Plan of Treatment Upcoming Encounters Date Type Department Care Team (Late st Contact Info) Description 08/31/2024 10:30 AM EDT Clinical Support [facility] [address] [place] [address] Roxy Carey RN [address] [place] [address] 09/26/2024 9:30 AM EDT Medication Management [facility] [address] [place] [address] Fior Bhandari, DemarD [address] [place] [address] 01/14/2025 9:30 AM EDT Office Visit [facility] [address] [place] [address] Jennifer Morgan, OD [address] [place] [address] documented as of this encounter Goals Goal Patient Goal Type Associated Problems Recent Progress Patient-Stated? Author Blood Pressure < 140/90 Blood Pressure 130/58(2024 9:15 AM EDT) No Fior Casillas, PharmD Hemoglobin A1c < 7.5 Result Component 6.4( 9:24 AM EDT) No Arics-Fior Geller, PharmD documented as of this encounter Visit Diagnoses Not on filedocumented in this encounter Additional Health Concerns Assessment Noted Time PHQ-9 Depression Total Score: 0 07/27/19 9:17 AM EDT documented as of this encounter Care Teams Content Creation Manager Relationship Specialty Start Date End Date Marisol Perry MD [address] [place] [address] PCP - General Family Medicine 05/02/18 Fior Bhandari, PharmD [address] [place] [address] Pharmacist Internal Medicine 06/18/22 Varun Alvarez MD [address] [place] [address] Gastroenterology 06/25/24 Ty Moctezuma MD [address] [place] [address] Cardiology 06/25/24 Jennifer Morgan, JOAN [address] [place] [address] Optometry 06/25/24 documented as of this encounter
--- OUTSIDE RECORDS SUMMARY | 2024-08-23 08:40 | XMS_ITS | Encounter Summary ---
Author Organization [facility] Address [address] [facility] 7[address] [place] [address] Care Team Providers Care Supervisor Blueprinting And Photocopy Name Role Phone Marisol Perry MD Primary Care Provider [phone] Fior Bhandari PharmD Unavailable Varun Alvarez MD Unavailable Ty Moctezuma MD Unavailable [phone] Jennifer Morgan OD Unavailable [phone] Reason for Visit * Reason Comments Med Refill Encounter Details Date Type Department Care Team (Late st Contact Info) Description 01/12/2023 Refill [facility] [address] [place], [place] [phone] [facility] [address] [place] [address] Pain Social History Tobacco Use Types Packs/Day Years Used Date Smoking Tobacco: Never Smokeless Tobacco: Never Alcohol Use Standard Drinks/Week Comments Never 0 (1 standard drink = 0.6 oz pur e alcohol) Depression Answer Date Recorded Patient Health Questionnaire-9 Score 0 07/01/2022 Depression Answer Date Recorded Patient Health Questionnaire-2 Score 0 07/01/2022 Comments Unknown Sex and Gender Information Value Date Recorded Sex Assigned at Female 03/01/2022 10:14 AM EDT Legal Sex Female 10:14 AM EDT Gender Identity Female 03/01/2022 10:14 AM EDT Sexual Orientation Straight 03/01/2022 10 :14 AM EDT documented as of this encounter Plan of Treatment Upcoming Encounters Date Type Department Care Team (Late st Contact Info) Description 08/31/2024 10:30 AM EDT Clinical Support [facility] [address] [place] [address] Roxy Carey, ALEJANDRA [address] [place] [address] 09/26/2024 9:30 AM EDT Medication Management [facility] [address] [place] [address] Fior Bhandari, PharmD [address] [place] [address] 01/14/2025 9:30 AM EDT Office Visit [facility] [address] [place] [address] Jennifer Morgan, OD [address] [place] [address] documented as of this encounter Goals Goal Patient Goal Type Associated Problems Recent Progress Patient-Stated? Author Blood Pressure < 140/90 Blood Pressure 130/58( 025 9:15 AM EDT) No Fior Casillas PharmD documented as of this encounter Visit Diagnoses Diagnosis Pain Generalized pain documented in this encounter Additional Health Concerns Assessment Noted Time PHQ-9 Depression Total Score: 0 07/02/19 23 10:47 AM EST documented as of this encounter Care Teams Supervisor Blueprinting And Photocopy Relationship Specialty Start Date End Date Marisol Perry MD [address] [place] [address] PCP - General Family Medicine 05/02/18 Fior Bhandari, PharmD [address] [place] [address] Pharmacist Internal Medicine 06/18/22 Varun Alvarez MD [address] [place] [address] Gastroenterology 06/25/24 Ty Moctezuma MD [address] [place] [address] Cardiology 06/25/24 Jennifer Morgan OD [address] [place] [address] Optometry 06/25/24 documented as of this encounter
--- OUTSIDE RECORDS SUMMARY | 2024-08-23 08:40 | XMS_ITS | Encounter Summary ---
Author Organization [facility] Address [address] [facility] 7t [place] [address] Care Team Providers Care Clinical Data Research Name Role Phone Marisol Perry MD Primary Care Provider + [phone] Fior Bhandari PharmD Unavailable [phone] Varun Alvarez MD Unavailable Ty Moctezuma MD Unavailable [phone] Jennifer Morgan OD Unavailable [phone] Reason for Visit * Reason Onset Date Comments Med Refill 08/21/2024 Encounter Details Date Type Department Care Team (Late st Contact Info) Description 08/21/2024 Refill [facility] CHC MED & PEDS [address] [place] [address] Roxy Carey, RN [address] [place] [address] Hip pain, unspecified laterality Social History Tobacco Use Types Packs/Day Years [...] Description 08/31/2024 10:30 AM EDT Clinical Support [facility] MEDICINE [address] [place] [address] Roxy Carey, RN [address] [place] [address] 09/26/2024 9:30 AM EDT Medication Management [facility] MEDICINE [address] [place] [address] Fior Bhandari, PharmD [address] [place] [address] 01/14/2025 9:30 AM EDT Office Visit [facility] OPTOMETRY [address] [place] [address] Jennifer Morgan, OD [address] [place] [address] documented as of this encounter Goals Goal Patient Goal Type Associated Problems Recent Progress Patient-Stated? Author Blood Pressure < 140/90 Blood Pressure 130/58(2024 9:15 AM EDT) No Fior Casillas PharmD Hemoglobin A1c < 7.5 Result Component 6.4( 9:24 AM EDT) No Fior Casillas PharmD documented as of this encounter Visit Diagnoses Diagnosis Hip pain, unspecified laterality documented in this encounter Additional Health Concerns Assessment Noted Time PHQ-9 Depression Total Score: 0 07/27/19 9:17 AM EDT documented as of this encounter Care Teams Clinical Data Research Relationship Specialty Start Date End Date Marisol Perry MD [address] [place] [address] PCP - General Family Medicine 05/02/18 Fior Bhandari PharmD [address] [place] [address] Pharmacist Internal Medicine 06/18/22 Varun Alvarez MD [address] [place] [address] Gastroenterology 06/25/24 Ty Moctezuma MD [address] [place] [address] Cardiology 06/25/24 Jennifer Morgan OD [address] [place] [address] Optometry 06/25/24 documented as of this encounter
--- OUTSIDE RECORDS SUMMARY | 2024-08-23 08:40 | XMS_ITS | Encounter Summary ---
Author Organization [employer] Address [address] [facility] 7t [place] [address] Care Team Providers Care Drop Wire Stringer Name Role Phone Marisol Perry MD Primary Care Provider [phone] Fior Bhandari PharmD Unavailable Varun Alvarez MD Unavailable Ty Moctezuma MD Unavailable Jennifer Morgan OD Unavailable [phone] Encounter Details Date Type Department Care Team (Late st Contact Info) Description 01/12/2023 Abstract [facility] MEDICINE [address] [place] [address] Marisol Perry MD [address] [place] [address] Social History Tobacco Use Types Packs/Day Years [...] Encounters Date Type Department Care Team (Late Contact Info) Description 08/31/2024 10:30 AM EDT Clinical Support [facility] MEDICINE [address] [place] [address] Roxy Carey, ALEJANDRA [address] [place] [address] 09/26/2024 9:30 AM EDT Medication Management [facility] MEDICINE [address] [place] [address] Fior Bhandari, PharmD [address] [place] [address] 01/14/2025 9:30 AM EDT Office Visit [facility] OPTOMETRY [address] [place] [address] Jennifer Morgan, OD [address] [place] [address] documented as of this encounter Goals Goal [...] documented as of this encounter Care Teams Drop Wire Stringer Relationship Specialty Start Date End Date Marisol Perry MD [address] [place] [address] PCP - General Family Medicine 05/02/18 Fior Bhandari, PharmD [address] [place] [address] Pharmacist Internal Medicine 06/18/22 Varun Alvarez MD [address] [place] [address] Gastroenterology 06/25/24 Ty Moctezuma MD [address] [place] [address] Cardiology 06/25/24 Jennifer Morgan OD [address] [place] [address] Optometry 06/25/24 documented as of this encounter
--- OUTSIDE RECORDS SUMMARY | 2024-08-23 08:40 | XMS_ITS | Encounter Summary ---
Author Organization [email or web address] Address [address] [facility] 7t [place] [address] Care Team Providers Care Emergency Room Specialist Name Role Phone Marisol Perry MD Primary Care Provider Fior Bhandari PharmD Unavailable [phone] Varun Alvarez MD Unavailable Ty Moctezuma MD Unavailable [phone] Jennifer Morgan OD Unavailable [phone] Reason for Visit * Reason Comments Med Refill Encounter Details Date Type Department Care Team (Late st Contact Info) Description 11/27/2023 Refill [facility] [address] [place], [place] [phone] Miller Hayward MD [address] [place], [place] [phone] Wheeze Social History Tobacco Use Types Packs/Day Years Used Date Smoking Tobacco: Former Cigarettes Smokeless Tobacco: Never Alcohol Use Standard Drinks/Week Comments Yes 0 (1 standard drink = 0.6 oz pur e alcohol) socially Depression Answer Date Recorded Patient Health Questionnaire-9 Score 0 07/25/2023 Patient Health Questionnaire-9 Score 0 07/25/2023 Last PHQ-9: Questionnaire Data Not on file 0 07/25/2023 Housing Stability Answer Date Recorded What is your housing situation today? I have gallo green 07/25/[address] you li ve. Do you have problems with any of the following? None of the above 07/25/2023 Food Insecurity Answer Date Recorded Within the past 12 months, y ou worried that your food would run out before you got money to buy more: Never True 07/25/2023 Within the past 12 months,th e food you bought just didn't last and you didn't have enough money to get more: Never True Transportation Answer Date Recorded In the past 12 months, has l ack of transportation kept you from medical appts, meetings, work or from getting things needed for daily living? No 07/25/2023 Utilities Answer Date Recorded In the past 12 months, has t he electric, gas, oil or water company threatened to shut off services in your home? No 07/25/2023 Depression Answer Date Recorded Patient Health Questionnaire-2 Score 0 07/25/2023 Comments Unknown Sex and Gender Information Value [...] Description 08/31/2024 10:30 AM EDT Clinical Support [facility] MEDICINE [address] [place] [address] Roxy Carey, ALEJANDRA [address] [place] [address] 09/26/2024 9:30 AM EDT Medication Management [facility] MEDICINE [address] [place] [address] Fior Bhandari PharmD [address] [place] [address] 01/14/2025 9:30 AM EDT Office Visit [facility] OPTOMETRY [address] [place] [address] Jennifer Morgan, OD [address] [place] [address] documented as of this encounter Goals Goal Patient Goal Type Associated Problems Recent Progress Patient-Stated? Author Blood Pressure < 140/90 Blood Pressure 130/58(2024 9:15 AM EDT) No Fior Casillas PharmDuke Hemoglobin A1c < 7.5 Result Component 6.4( 5 9:24 AM EDT) No Fior Casillas PharmD documented as of this encounter Visit Diagnoses Diagnosis Wheeze Wheezing documented in this encounter Additional Health Concerns Assessment Noted Time PHQ-9 Depression Total Score: 0 07/25/19 10:34 AM EDT documented as of this encounter Care Teams Emergency Room Specialist Relationship Specialty Start Date End Date Marisol Perry MD [address] [place] [address] PCP - General Family Medicine 05/02/18 Fior Bhandari PharmD [address] [place] [address] Pharmacist Internal Medicine 06/18/22 Varun Alvarez MD [address] [place] [address] Gastroenterology 06/25/24 Ty Moctezuma MD [address] [place] [address] Cardiology 06/25/24 Jennifer Morgan OD [address] [place] [address] Optometry 06/25/24 documented as of this encounter
--- OUTSIDE RECORDS SUMMARY | 2024-08-23 08:40 | XMS_ITS ---
Author Organization [facility] Address [address] [place] [address] Care Team Providers Care Temper Mill Roller Name Role Phone Marisol Perry MD Primary Care Provider Salina vailaVarun Oliva [phone] REASON FOR VISIT pt r/s to november Encounters Encounter Location Date Provider Diagnosis [facility] [address] [place] [address] 08/14/2024 Varun Alvarez Plan Of Treatment Next Appt Details Provider Name:Varun Alvarez , 12/04/2024 10:10:00 AM, [address], [address], [place], [address], Progress Notes * CANELO CORTEZJOYAOB: (79 yo F)Acc No.[id number]:08/14/2024 Patient:?YURIY CORTEZ :1945???Age:79 Y???Sex:Female Address:[address] [facility] [address], [place] [address] * true * Date:? Generated for Printi ng/Jeanette/eTransmitting on:?08/23/2024 08:40 AM EDT
--- OUTSIDE RECORDS SUMMARY | 2024-08-23 08:40 | XMS_ITS ---
Author Organization [facility] Address [address] [place] [address] Care Team Providers Care Restaurant Line Server Name Role Phone Orlando GOMEZ, Marisol Primary Care Provider Salina earleilaVarun Oliva Unavailable [phone] REASON FOR VISIT hx of hep c Encounters Encounter Location Date Provider Diagnosis [facility] [address] [place] [address] 08/16/2024 aVrun Alvarez Plan Of Treatment Next Appt Details Provider Name:Varun Alvarez , 12/04/2024 10:10:00 AM, [address], [address], [place], [address], Progress Notes * ANAM CORTEZOB: (79 yo F)Acc No.[id number]:08/16/2024 Progress Notes Patient:?YURIY CORTEZ Provider:?Varun Alvarez MD :1945???Age:79 Y???Sex:Female D ate:08/16/2024 Address:[address] [place] [address] [address], [place], [place] Pcp:Marisol Perry MD Subjective: * Chief Complaints: * ???1. Hx of hep c. * Medical History:? Objective: * Vitals:? Assessment: Plan: * Treatment: * * The named appointment provid er may or may not be the originator of this progress note, and it is not deemed complete until electronically signed by the appointment provider. Sign off status: Pending * Provider:?Varun Alvarez MD Date:? 025 Generated for Obed badillo/Jeanette/Leviitting on:?08/23/2024 08:40 AM EDT
--- OUTSIDE RECORDS SUMMARY | 2024-08-23 08:40 | XMS_ITS | Encounter Summary ---
Author Organization [employer] Address [address] [facility] 7t [place] [address] Care Team Providers Care Speech And Hearing Clinic Director Name Role Phone Marisol Perry MD Primary Care Provider [phone] Fior Bhandari PharmD Unavailable Varun Alvarez MD Unavailable Ty Moctezuma MD Unavailable [phone] Jennifer Morgan OD Unavailable [phone] Reason for Visit * Reason Comments Med Refill Encounter Details Date Type Department Care Team (Late st Contact Info) Description 11/10/2023 Refill [facility] CHC MED & PEDS [address] [place], [place] [phone] Sarah Baldwin, ANP [address] [place] [address] Hip pain, unspecified laterality Social History Tobacco [...] Description 08/31/2024 10:30 AM EDT Clinical Support [facility] MEDICINE [address] [place] [address] Roxy Carey, ALEJANDRA [address] [place] [address] 09/26/2024 9:30 AM EDT Medication Management [facility] MEDICINE [address] [place] [address] Fior Bhandari, PharmD [address] [place] [address] 01/14/2025 9:30 AM EDT Office Visit [facility] OPTOMETRY [address] [place] [address] Jennifer Morgan, JOAN [address] [place] [address] documented as of this encounter Goals Goal Patient Goal Type Associated Problems Recent Progress Patient-Stated? Author Blood Pressure < 140/90 Blood Pressure 130/58( 025 9:15 AM EDT) No Fior Casillas, PharmD documented as of this encounter Visit Diagnoses Diagnosis Hip pain, unspecified laterality documented in this encounter Additional Health Concerns Assessment Noted Time PHQ-9 Depression Total Score: 0 07/25/19 24 10:34 AM EDT documented as of this encounter Care Teams Speech And Hearing Clinic Director Relationship Specialty Start Date End Date Marisol Perry MD [address] [place] [address] PCP - General Family Medicine 05/02/18 Fior Bhandari, PharmD [address] [place] [address] Pharmacist Internal Medicine 06/18/22 Varun Alvarez MD [address] [facility] [address] [place] [address] Gastroenterology 06/25/24 Ty Moctezuma MD [address] [place] [address] Cardiology 06/25/24 Jennifer Morgan OD [address] [place] [address] Optometry 06/25/24 documented as of this encounter
--- OUTSIDE RECORDS SUMMARY | 2024-08-23 08:41 | XMS_ITS | Clinical Summary ---
Author Organization [employer] Address [address] [facility] [address] [place] [address] Care Team Providers Care Community Outreach Manager Name Role Phone Marisol Perry MD Primary Care Provider [phone] Fior Bhandari PharmD Unavailable Varun Alvarez MD Unavailable Ty Moctezuma MD Unavailable [phone] EddieJennifer hinojosa OD Unavailable [phone] Allergies Active Allergy Reactions Criticality Noted Date Comments Levofloxacin Itching Low 10/25/2022 Penicillins Rash,Hives High 04/29/2010 Other reaction(s): swelling/hives Shellfish Allergy Anaphylaxis High 02/10/2021 Other reaction(s): Unknown Other reaction(s): itching/swelling/hives Sulfamethoxazole 03/01/2019 [place] Oil Anaphylaxis High 04/29/2010 Trimethoprim 03/01/2019 Medications Ascorbic Acid (vitamin C) 500 MG tabletIndication s:Iron deficiency TAKE 1 TABLET BY MOUTH EVERY MORNING 90 tablet 3 07/20/19 24 Active rosuvastatin (Crestor) 20 MG tabletIndication s:Hypercholester olemia Take 1 tablet (20 mg) by mouth at bedtime. 90 tablet 3 09/02/19 24 Active fluticasone (Flonase) 50 MCG/ACT nasal sprayIndications :Allergy, sequela USE 1-2 SPRAYS IN EACH NOSTRIL ONCE DAILY NEEDED 48 g 3 09/28/19 24 Active albuterol 108 (90 Base) MCG/ACT inhalerIndicatio ns:Wheeze INHALE 2 PUFFS BY MOUTH EVERY 4 HOURS NEEDED 8.5 g 1 10/05/19 24 Active Aspirin Low Dose 81 MG EC tabletIndication s:Aortic valve stenosis, etiology of cardiac valve disease unspecified TAKE 1 TABLET BY MOUTH EVERY MORNING 90 tablet 3 11/09/19 24 Active Blood Pressure kitIndications:H ypertension, unspecified type Use as directed 1 kit 11/16/19 24 Active Blood Glucose Monitoring Suppl (Appforma Verio Flex System) w/Device kitIndications:T ype 2 diabetes mellitus without complication, without long-term current use of insulin (CMS/[facility]) Use as directed to check blood sugar twice daily 1 kit 11/16/19 24 Active empagliflozin (Jardiance) 10 MGIndications:Ty pe 2 diabetes mellitus without complication, without long-term current use of insulin (CMS/HCC) Take 1 tablet by mouth once daily in the morning 90 tablet 3 11/16/19 24 Active metFORMIN (Glucophage) 500 MG tabletIndication s:Type 2 diabetes mellitus without complication, with long-term current use of insulin (CMS/[facility]) TAKE 1 TABLET BY MOUTH TWICE DAILY IN THE MORNING AND IN THE EVENING (for diabetes) 60 tablet 11 12/29/19 24 Active acetaminophen (Tylenol 8 Hour) 650 MG ER tabletIndication s:Acute URI TAKE 1 TABLET BY MOUTH EVERY 8 HOURS NEEDED FOR MILD PAIN, DO NOT BREAK, CRUSH, DISSOLVE OR CHEW 40 tablet 1 02/21/20 24 Active albuterol (2.5 MG/3ML) 0.083% nebulizer solutionIndicati ons:Mild intermittent asthma without complication INHALE 1 AMPULE USING A NEBULIZER FOUR TIMES DAILY NEEDED 90 mL 1 05/23/19 25 Active lisinopril 30 MG tabletIndication s:Essential hypertension TAKE 1 TABLET BY MOUTH EVERY EVENING 30 tablet 1 06/25/19 25 Active spironolactone (Aldactone) 50 MG tabletIndication s:Essential hypertension TAKE 1 TABLET BY MOUTH EVERY EVENING 90 tablet 3 06/25/19 25 Active furosemide (Lasix) 20 MG tabletIndication s:Essential hypertension Take 1 tablet by mouth once daily in the morning Active levothyroxine (Synthroid, Levoxyl) 100 MCG tabletIndication s:Hypothyroidism , unspecified type Take 1 tablet (100 mcg) by mouth in the morning. 90 tablet 3 06/25/19 25 Active EPINEPHrine (Epipen) 0.3 MG/0.3ML injection syringeIndicatio ns:Allergic reaction, sequela Inject into upper leg prn allergy. Call 911 after use. 1 each 06/25/19 25 Active omeprazole (PriLOSEC) [address] capsuleIndicatio ns:Gastroesophag eal reflux disease, unspecified whether esophagitis present Take 40 mg by mouth before breakfast. Do not crush or chew. Active dicyclomine (Bentyl) 10 MG capsuleIndicatio ns:Gastroesophag eal reflux disease, unspecified whether esophagitis present Take 10 mg by mouth 4 times daily. Active Lancets (OneTouch Delica Plus [id number]) miscIndications: Type 2 diabetes mellitus without complications (CMS/HCC) TEST BLOOD SUGAR SIX TIMES DAILY 100 each 11 07/25/19 25 Active OneTouch Verio test stripIndications :Type 2 diabetes mellitus without complications (CMS/HCC) TEST BLOOD SUGAR SIX TIMES DAILY 100 strip 11 07/25/19 25 Active dilTIAZem XR (Dilacor XR) 240 MG 24 hr capsuleIndicatio ns:Essential hypertension Take 240 mg by mouth Once per day. Active Vibegron (Gemtesa) 75 MG tabletIndication s:Overactive bladder Take by mouth. Active cholecalciferol (Vitamin D-3) 25 MCG tabletIndication s:Vitamin D deficiency Take 1 tablet (25 mcg) by mouth in the morning. 90 tablet 3 07/27/19 25 Active Nebulizers miscIndications: Mild intermittent asthma without complication Use nebulizer as instructed 1 each 07/27/19 25 Active Respiratory Therapy Supplies (Nebulizer/Tubin g/Mouthpiece) kitIndications:M ild intermittent asthma without complication To be used with Nebulizer 1 kit 07/27/19 25 Active cetirizine (ZyrTEC) 10 MG tabletIndication s:Acute URI TAKE 1 TABLET BY MOUTH EVERY MORNING 90 tablet 3 08/15/19 25 Active oxyCODONE-acetam inophen (Percocet) 5-325 MG tabletIndication s:Hip pain, unspecified laterality Take 1 tablet by mouth if needed each day for severe pain. 28 tablet 08/22/19 25 Active Gemtesa 75 MG tablet Take 1 tablet by mouth in the morning. 08/11/19 23 2024 Discontinued(M ed list cleanup (will not trigger notification to Pharmacy)) cetirizine (ZyrTEC) 10 MG tabletIndication s:Acute URI TAKE 1 TABLET BY MOUTH EVERY MORNING 90 tablet 3 07/20/19 24 2024 Discontinued dilTIAZem ER (Tiazac) 240 MG 24 hr capsule Take 240 mg by mouth in the morning. 10/11/19 24 2024 Discontinued(M ed list cleanup (will not trigger notification to Pharmacy)) cholecalciferol (Vitamin D-3) 25 MCG tablet TAKE 1 TABLET BY MOUTH EVERY MORNING 90 tablet 3 05/08/19 25 2024 Discontinued(R eorder (will not trigger notification to Pharmacy)) oxyCODONE-acetam inophen (Percocet) 5-325 MG tabletIndication s:Hip pain, unspecified laterality Take 1 tablet by mouth if needed each day for severe pain. 28 tablet 07/20/19 25 2024 Discontinued(R eorder (will not trigger notification to Pharmacy)) Respiratory Therapy Supplies (Nebulizer Mask Adult) miscIndications: Mild intermittent asthma without complication 1 each every 4 (four) hours if needed (wheeze) for up to 1 day. 1 each 07/27/19 25 2024 Active Problems Problem Noted Date Diagnosed Date Allergic reaction 07/26/2024 Overview (07/26/2024): -refilled EPINEPHrine (Epipen) 0.3 MG/0.3ML injection syringe 07/26/24 Assessment & Plan (07/26/2024 9:28 AM EDT): -refilled EPINEPHrine (Epipen) 0.3 MG/0.3ML injection syringe 07/26/24 Exudative age-related macula r degeneration of both eyes with active choroidal neovascularization 07/26/2024 Non-alcoholic cirrhosis 07/26/2024 Avascular necrosis 07/26/2024 Diabetes due to underlying condition w oth circu latory comp 07/26/2024 Dietary counseling 07/26/2024 Assessment & Plan (07/26/2024 9:27 AM EDT): Dietary Recommendations: Fruits, vegetables, whole grains, protein foods, and fat-free or low-fat dairy products are healthy choices. Eat different types of protein foods in your diet. This can include seafood, lean meats, poultry, beans, peas, lentils, nuts, seeds, soy products, and eggs. Limit foods and beverages higher in added sugars, saturated fat, and sodium. Exercise counseling 07/26/2024 Assessment & Plan (07/26/2024 9:27 AM EDT): Exercise Recommendations: At least 150 minutes of moderate-intensity physical activity per week, or an equivalent combination of moderate- and vigorous-intensity activity Overactive bladder 07/26/2024 Overview (07/26/2024): - continue Vibegron (Gemtesa) 75 MG Assessment & Plan (07/26/2024 9:24 AM EDT): - continue Vibegron (Gemtesa) 75 MG Vitamin D deficiency 07/26/2024 Overview (07/26/2024): No results found for: [id number] - continue cholecalciferol (Vitamin D-3) 25 MCG - ordered repeat level 07/26/24 Assessment & Plan (07/26/2024 9:29 AM EDT): - continue cholecalciferol (Vitamin D-3) 25 MCG - ordered repeat level 07/26/24 Screening mammogram for breast cancer 07/26/2024 Overview (07/26/2024): Ordered mammogram 07/26/24 Assessment & Plan (07/26/2024 9:32 AM EDT): Ordered mammogram 07/26/24 Vaginal wall prolapse without uterine prolapse 0 07/26/2024 Overview (07/26/2024): Bimanual exam done. Vulva normal, internal exam with some vaginal wall redundancy, suspect mild prolapse. No concerning findings. Will monitor symptoms to reevaluate. Assessment & Plan (07/26/2024 9:44 AM EDT): Bimanual exam done. Vulva normal, internal exam with some vaginal wall redundancy, suspect mild prolapse. No concerning findings. Will monitor symptoms to reevaluate. 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 02/01 Overview (03/14/2024): For hip and back pain Gastroesophageal reflux disease 09/02/2023 Overview (07/26/2024): - continue omeprazole (PriLOSEC) [address] - continue dicyclomine (Bentyl) 10 MG Assessment & Plan (07/26/2024 9:23 AM EDT): - continue omeprazole (PriLOSEC) [address] - continue dicyclomine (Bentyl) 10 MG Irritable bowel syndrome 09/02/2023 Ambulates with cane 07/25/2023 Overview (07/26/2024): -Patient qualifies for a handicap plate -Updated disability placard 07/26/24 Assessment & Plan (07/26/2024 9:28 AM EDT): -Patient qualifies for a handicap plate -Updated disability placard 07/26/24 Assessment & Plan (07/25/2023 11:18 AM EDT): -Patient qualifies for a handicap plaque Cardiac risk counseling 02/16/2023 Overview (02/16/2023): Stress test 02/16/2023: 1. Myocardial perfusion imaging study shows probably normal myocardial perfusion. 2. Gated LVEF is 67% during stress; > 70% during rest. 3. Transient ischemic dilatation not present. Assessment & Plan (07/25/2023 11:01 AM EDT): Stress test 02/16/2023: 1. Myocardial perfusion imaging study shows probably normal myocardial perfusion. 2. Gated LVEF is 67% during stress; > 70% during rest. 3. Transient ischemic dilatation not present. Diverticular disease of colon 12/14/2022 History of total left hip arthroplasty 3 Other specified health status 10/27/2022 Overview (07/26/2024): -next physical exam due after 07/26/25 -eye care facilitated by Ludin Clifton, last seen 10/08/2022 -dental home is [facility] -filed healthcare proxy on 07/25/2023 Assessment & Plan (07/26/2024 9:25 AM EDT): -next physical exam due after 07/26/25 -eye care facilitated by Ludin Clifton, last seen 10/08/2022 -dental home is [facility] -filed healthcare proxy on 07/25/2023 Assessment & Plan (07/25/2023 10:55 AM EDT): -next physical exam due after 06/2024 -eye care facilitated by Ludin Clifton, last seen 10/08/2022 -dental home is [facility] -filed healthcare proxy on 07/25/2023 Assessment & Plan (01/28/2023 10:00 AM EDT): -next physical exam due after 07/2023 -eye care facilitated by Ludin Clifton, last seen 10/08/2022 -dental home is Aortic valve stenosis 06/29/2022 Overview (07/26/2024): Patient followed at [facility] with Dr. Damari Moctezuma DO. -echo 12/27/23 EF 55-50%, mild pulmonary hypertension, aortic valve mildly calcified, mild AR, mild aortic stenosi with peak /mean pressure gradient of 10.05mmHg/10.20mmHg no change compaired to 12/21/22 -seen Dr. Damari Moctezuma DO, 03/13/24. Clinically stable. Assessment & Plan (07/26/2024 9:22 AM EDT): Patient followed at [facility] with Dr. Damari Moctezuma DO. -echo 12/27/23 EF 55-50%, mild pulmonary hypertension, aortic valve mildly calcified, mild AR, mild aortic stenosi with peak /mean pressure gradient of 10.05mmHg/10.20mmHg no change compaired to 12/21/22 -seen Dr. Damari Moctezuma DO, 03/13/24. Clinically stable. Left anterior fascicular block 06/29/2022 Metabolic dysfunction-associ ated steatotic liver disease (MASLD) 06/29/2022 Overview (07/26/2024): Followed by [employer] Technician Dr. Alvarez Lab Results Component Value Date AST 36 (H) 03/13/2024 ALT 32 (H) 03/13/2024 ALT 17 01/21/2022 ALP 90 03/13/2024 DIRECTBILIRU 0.1 03/13/2024 -Hx hepatis C, cleared. Followed by Dr. Varun Alvarez MD, note form 08/23/23 reviewed. -Abdominal US 09/06/23 US/US abdomen comp w elastography ordered by DR. Alvarez revealed generalized increase in hepatic echotexture, consistent with fatty infiltration or hepatocellular disease. Please correlate No focal hepatic mass or intrahepatic biliary dilatation is seen. Liver elastography: Although measurements appear to rule out compensated advanced chronic liver disease, there is statistical variability of the sampling which decreases accuracy. A 3 mm nonmobile gallbladder polyps are seen, for which no imaging follow-up is recommended. -Plan: Avoid alcohol. Dietary modification, increase physical activity. -Ordered repeat labs 07/26/24 Assessment & Plan (07/26/2024 9:33 AM EDT): Followed by [employer] Dr. Alvarez Lab Results Component Value Date AST 36 (H) 03/13/2024 ALT 32 (H) 03/13/2024 ALT 17 01/21/2022 ALP 90 03/13/2024 DIRECTBILIRU 0.1 03/13/2024 -Hx hepatis C, cleared. Followed by Dr. Varun Alvarez MD, note form 08/23/23 reviewed. -Abdominal US 09/06/23 US/US abdomen comp w elastography ordered by DR. Alvarez revealed generalized increase in hepatic echotexture, consistent with fatty infiltration or hepatocellular disease. Please correlate No focal hepatic mass or intrahepatic biliary dilatation is seen. Liver elastography: Although measurements appear to rule out compensated advanced chronic liver disease, there is statistical variability of the sampling which decreases accuracy. A 3 mm nonmobile gallbladder polyps are seen, for which no imaging follow-up is recommended. -Plan: Avoid alcohol. Dietary modification, increase physical activity. -Ordered repeat labs 07/26/24 Mild intermittent asthma 06/18/2021 Overview (10/06/2022): Controlled. Decreased exercise tolerance. Discussed increasing cardiovascular activity on a daily basis. Assessment & Plan (07/26/2024 9:21 AM EDT): Controlled. Decreased exercise tolerance. Discussed increasing cardiovascular activity on a daily basis. Assessment & Plan (10/06/2022 8:58 AM EDT): Controlled. Decreased exercise tolerance. Discussed increasing cardiovascular activity on a daily basis. Type 2 diabetes mellitus without complication Overview (07/26/2024): Diabetes is controlled. Lab Results Component Value Date HGBA1C 6.4 (A) 07/26/2024 HGBA1C 6.4 (A) 02/15/2024 HGBA1C 6.6 (A) 07/25/2023 Lab Results Component Value Date CREATININE 0.77 07/25/2023 EGFR >60 07/25/2023 MICROALBCREU 42.7 (H) 05/08/2024 MICROALBCREU 77.7 (H) 07/25/2023 LDLCHOLCAL 64 03/13/2024 -Continue metformin 500mg twice daily. 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 -Diabetic foot exam: 07/26/24 -Continue lifestyle modifications -Continue current medications Assessment & Plan (07/26/2024 9:34 AM EDT): Diabetes is controlled. Lab Results Component Value Date HGBA1C 6.4 (A) 07/26/2024 HGBA1C 6.4 (A) 02/15/2024 HGBA1C 6.6 (A) 07/25/2023 Lab Results Component Value Date CREATININE 0.77 07/25/2023 EGFR >60 07/25/2023 MICROALBCREU 42.7 (H) 05/08/2024 MICROALBCREU 77.7 (H) 07/25/2023 LDLCHOLCAL 64 03/13/2024 -Continue metformin 500mg twice daily. 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 -Diabetic foot exam: 07/26/24 -Continue lifestyle modifications -Continue current medications Assessment & Plan (07/25/2023 10:50 AM EDT): Diabetes is controlled. - Lab Results Component Value Date HGBA1C 6.5 (A) 01/28/2023 HGBA1C 6.6 (A) 07/01/2022 HGBA1C 6.0 (H) 02/12/2020 HGBA1C 6.0 (H) 02/12/2020 - Lab Results Component Value Date MICROALBUR 12.0 01/28/2023 CREATININE 0.84 01/28/2023 -Continue metformin 500mg daily. -Changes: None -Jarod/Arb: lisinopril 20mg -Statin therapy: rosuvastatin 10mg -Diabetic eye exam: 05/2022 -Diabetic foot exam: 10/06/2022 -Continue lifestyle modifications -Continue current medications Assessment & Plan (01/28/2023 10:21 AM EDT): Diabetes is controlled. - Lab Results Component Value Date HGBA1C 6.5 (A) 01/28/2023 HGBA1C 6.6 (A) 07/01/2022 HGBA1C 6.0 (H) 02/12/2020 HGBA1C 6.0 (H) 02/12/2020 -No results found for: POCA1C - Lab Results Component Value Date MICROALBUR 34.0 11/29/2022 CREATININE 0.78 11/29/2022 -Continue metformin 500mg daily. -Changes: None -Jarod/Arb: lisinopril 20mg -Statin therapy: rosuvastatin 10mg -Diabetic eye exam: 05/2022 -Diabetic foot exam: 10/06/2022 -Continue lifestyle modifications -Continue current medications Assessment & Plan (10/06/2022 10:19 AM EDT): Diabetes is controlled. - Lab Results Component Value Date HGBA1C 6.6 (A) 07/01/2022 HGBA1C 6.0 (H) 02/12/2020 HGBA1C 6.0 (H) 02/12/2020 - Lab Results Component Value Date MICROALBUR 3.9 10/05/2021 CREATININE 0.90 08/18/2022 -Continue metformin 500mg daily. -Changes: None -Jarod/Arb: lisinopril 20mg -Statin therapy: rosuvastatin 10mg -Diabetic eye exam: 05/2022 -Diabetic foot exam: 10/06/2022 -Continue lifestyle modifications -Continue current medications Assessment & Plan (08/04/2022 4:48 PM EDT): Glucose = 123 She reported her home glucose testing kit is no longer working. So I ordered her a new testing kit. Obstructive sleep apnea syndrome 02/24/2012 Overview (10/06/2022): No longer on CPAP. Assessment & Plan (10/06/2022 8:57 AM EDT): No longer on CPAP. Hypercholesterolemia 09/24/2011 Overview (07/26/2024): Lab Results Component Value Date CHOL 136 03/13/2024 CHOL 168 07/25/2023 CHOL 169 11/29/2022 TRIG 147 03/13/2024 TRIG 146 07/25/2023 TRIG 116 11/29/2022 HDL 43 03/13/2024 HDL 48 07/25/2023 HDL 47 11/29/2022 LDLCHOLCAL 64 03/13/2024 LDLCHOLCAL 91 07/25/2023 LDLCHOLCAL 99 11/29/2022 -continue lifestyle modification -rosuvastatin increased to 20mg 09/02/23 with LDL at goal -ordered FLP and HFP 07/26/24 Assessment & Plan (07/26/2024 9:26 AM EDT): Lab Results Component Value Date CHOL 136 03/13/2024 CHOL 168 07/25/2023 CHOL 169 11/29/2022 TRIG 147 03/13/2024 TRIG 146 07/25/2023 TRIG 116 11/29/2022 HDL 43 03/13/2024 HDL 48 07/25/2023 HDL 47 11/29/2022 LDLCHOLCAL 64 03/13/2024 LDLCHOLCAL 91 07/25/2023 LDLCHOLCAL 99 11/29/2022 -continue lifestyle modification -rosuvastatin increased to 20mg 09/02/23 with LDL at goal -ordered FLP and HFP 07/26/24 Essential hypertension 09/24/2011 Overview (07/26/2024): -Blood pressure is at goal -Continue lifestyle modifications -Continue current medications -continue lasix 20mg daily -cont diltiazem 240mg dialy -cont darlene 50mg daily -cont lisinopril 30mg daily, increased 11/2022 -atenolol discon in 2020 due to bradycardia Assessment & Plan (07/26/2024 9:22 AM EDT): -Blood pressure is at goal -Continue lifestyle modifications -Continue current medications -continue lasix 20mg daily -cont diltiazem 240mg dialy -cont darlene 50mg daily -cont lisinopril 30mg daily, increased 11/2022 -atenolol discon in 2020 due to bradycardia Assessment & Plan (07/25/2023 10:57 AM EDT): -Blood pressure is not at goal but patient did not take her BP medication. Will have patient monitor her blood pressure at home and have nurse follow up -Continue lifestyle modifications -Continue current medications -continue lasix 20mg daily -cont diltiazem 240mg dialy -cont darlene 50mg daily -cont lisinopril 30mg daily, increased 11/2022 -atenolol discon in 2019 due to bradycardia Assessment & Plan (01/28/2023 9:59 AM EDT): -Blood pressure is at goal -Continue lifestyle modifications -Continue current medications -continue lasix 20mg daily -cont diltiazem 240mg dialy -cont darlene 50mg daily -cont lisinopril 30mg daily, increased 11/2022 -atenolol discon in 2020 due to bradycardia Assessment & Plan (10/06/2022 10:12 AM EDT): Not controlled. Cardiology recently changed meds, unsure of changes. Will refer to CDTM. Assessment & Plan (08/04/2022 3:55 PM EDT): Blood pressure elevated 170/78. I gave her a log and ordered her a blood pressure kit. She is to check her BP twice a day and follow up in 2 weeks for an RN BP check. Advised her to hold her lisinopril on the day of surgery. Hypothyroidism 09/24/2011 Overview (07/26/2024): No results found for: TSH -continue levothyroxine (Synthroid, Levoxyl) 100 MCG -reordered TSH 07/26/24 Assessment & Plan (07/26/2024 9:26 AM EDT): -continue levothyroxine (Synthroid, Levoxyl) 100 MCG -reordered TSH 07/26/24 Lumbago 09/24/2011 Obesity 09/24/2011 Overview (07/26/2024): Discussed weight, diet, exercise with patient in relation to health conditions. Used motivational interviewing to illicit change talk and established initial goals with patient. Assessment & Plan (07/26/2024 9:31 AM EDT): Discussed weight, diet, exercise with patient in relation to health conditions. Used motivational interviewing to illicit change talk and established initial goals with patient. Resolved Problems Problem Noted Date Diagnosed Date Resolved Date History of hepatitis C 10/17/202303/14 Abnormal liver ultrasound 10/17/2023 Urinary tract infection without hematuria 07/25/2023 03/14/2024 Overview (07/25/2023): -Urinalysis and urine culture sent to the lab -Empiric antibiotics started -Potential adverse effects of the medication reviewed -Discussed strategies to prevent future infections: Increase fluids. Urinate after sex. Avoid bladder irritants. -Report fever, chills, worsening symptoms or abdominal/flank pain -Advised to seek medical attention if no improvement or worsening of symptoms -ER precautions reviewed. Assessment & Plan (07/25/2023 10:52 AM EDT): -Urinalysis and urine culture sent to the lab -Empiric antibiotics started -Potential adverse effects of the medication reviewed -Discussed strategies to prevent future infections: Increase fluids. Urinate after sex. Avoid bladder irritants. -Report fever, chills, worsening symptoms or abdominal/flank pain -Advised to seek medical attention if no improvement or worsening of symptoms -ER precautions reviewed. Chronic midline thoracic back pain 01/28/2023 03/14/2024 Overview (01/28/2023): will check x ray, denies PT Assessment & Plan (01/28/2023 10:01 AM EDT): will check x ray, denies pt refa Tendinitis involving hip abductors 10/27/2022 03/14/2024 Left hip flexor tightness 10/27/2022 Abnormal findings on diagnos tic imaging of liver and biliary tract 06/29/2022 03/14/2024 Overview (03/14/2024): Abdominal US 09/06/23 US/US abdomen comp w elastography ordered by DR. Alvarez revealed generalized increase in hepatic echotexture, consistent with fatty infiltration or hepatocellular disease. Please correlate No focal hepatic mass or intrahepatic biliary dilatation is seen. Liver elastography: Although measurements appear to rule out compensated advanced chronic liver disease, there is statistical variability of the sampling which decreases accuracy. A 3 mm nonmobile gallbladder polyps are seen, for which no imaging follow-up is recommended. Bradycardia 06/29/2022 03/14/2024 Overview (10/06/2022): Resolved with discontinuation of atenolol. Assessment & Plan (10/06/2022 8:59 AM EDT): Resolved with discontinuation of atenolol. Liver fibrosis 06/29/2022 03/14/2024 Cataract 06/18/2021 03/14/2024 Assessment & Plan (08/04/2022 4:03 PM EDT): STOP-bang = 2 Revised Cardiac Risk Index (Jefferson Criteria) = 0.4% very low risk Patient is cleared for her cataract surgeries Hip pain 01/24/2013 03/14/2024 Overview (01/20/2023): -H/o of Arthroplasty in 2009. -She had a fall in May 2021. -X-ray normal in May 2021. -Saw Orthopedic july 15 2021, recommended PT. -Had inginual hernia and was referred to huseyin. -Refer to PT and Acupuncture 10/05/21. Assessment & Plan (07/25/2023 11:00 AM EDT): -H/o of Arthroplasty in 2009. -She had a fall in May 2021. -X-ray normal in May 2021. -Saw Orthopedic july 15 2021, recommended PT. -Had inginual hernia and was referred to huseyin. -Refer to PT and Acupuncture 10/05/21. Assessment & Plan (01/28/2023 9:53 AM EDT): -H/o of Arthroplasty in 2009. -She had a fall in May 2021. -X-ray normal in May 2021. -Saw Orthopedic july 15 2021, recommended PT. -Had inginual hernia and was referred to huseyin. -Refer to PT and Acupuncture 10/05/21. Assessment & Plan (10/06/2022 8:57 AM EDT): -H/o of Arthroplasty in 2009. -She had a fall in May 2021. -X-ray normal in May 2021. -Saw Orthopedic july 15 2021, recommended PT. -Had inginual hernia and was referred to huseyin. -Refer to PT and Acupuncture 10/05/21. History of artificial joint 01/24/2013 03/14/2024 Encounters Date Type Department Care Team Description 08/21/2024 Refill [facility] [address] [place] [address] Roxy Carey RN Hip pain, unspecified laterality 08/21/2024 Telephone [facility] [address] [place] [address] Marisol Perry MD Med Refill 08/13/2024 Refill [facility] [address] [place] [phone] Marisol Perry MD Acute URI 08/01/2024 Telephone [facility] [address] [place] [phone] Marisol Perry MD 07/26/2024 9:15 AM EDT Office Visit [facility] [address] [place] [phone] Marisol Perry MD Essential hypertension (Primary Dx); Type 2 diabetes mellitus without complication, with long-term current use of insulin ([facility]/HCC); Diabetes due to underlying condition w oth circulatory comp (CMS/HCC); Avascular necrosis (CMS/HCC); Exudative age-related macular degeneration of both eyes with active choroidal neovascularization ([facility]/HCC); Hypercholesterolemia; Aortic valve stenosis, etiology of cardiac valve disease unspecified; Mild intermittent asthma without complication; Mild intermittent asthma, unspecified whether complicated; Hypothyroidism, unspecified type; Gastroesophageal reflux disease, unspecified whether esophagitis present; Metabolic dysfunction-associated steatotic liver disease ([facility]); Non-alcoholic cirrhosis (CMS/HCC); Overactive bladder; Vaginal wall prolapse without uterine prolapse; Allergic reaction, sequela; Vitamin D deficiency; Ambulates with cane; Screening mammogram for breast cancer; Class 1 obesity due to excess calories with serious comorbidity and body mass index (BMI) of 32.0 to 32.9 in adult; Dietary counseling; Exercise counseling; Encounter for immunization; Other specified health status; Hip pain, unspecified laterality 07/26/2024 Orders Only [facility] [address] [place] [phone] Marisol Perry MD 07/26/2024 Travel 07/25/2024 Telephone [facility] [address] [place] [phone] Marisol Perry MD Nebulizer Prescripiton 07/24/[address] [address] Marisol Perry MD chartprep 07/23/2024 Refill [facility] [address] [place] [phone] Marisol Perry MD Type 2 diabetes mellitus without complications (CMS/HCC) 07/19/2024 Refill [facility] [address] [place] [address] Roxy Carey RN Hip pain, unspecified laterality 07/19/2024 Telephone [facility] [address] [place] [address] Marisol Perry MD 07/16/2024 Patient Outreach [facility] [address] [place] [phone] Marisol Perry MD Pre-visit Planning (Pre-visit planning - LVM ) 07/13/2024 Telephone [facility] [address] [place] [phone] Fior Bhandari, PharmD Durable Medical Equipment 07/13/2024 Travel 07/11/2024 Telephone [facility] [address] [place] [address] Jennifer Morgan OD 06/19/2024 Refill [facility] [address] [place] [address] Dudley Price MD Hip pain, unspecified laterality 06/14/2024 Refill [facility] [address] [place] [address] Meagan Amezquita MD Primary hypertension 06/11/2024 10:00 AM EST Telemedicine [facility] [address] [place] [address] Roxy Carey RN Chronic midline thoracic back pain 06/11/2024 Telephone [facility] [address] [place] [address] Roxy Carey RN 06/11/2024 Travel from Last 3 Months Immunizations Name Administration Dates Next Due Hep A, Adult 07/26/2024,01/28/2023,10/06/2022 Hep B, adult 06/18/2021,05/11/2018,01/24/2013 Influenza High-dose Quadriva lent Preservative Free 01/28/2023,01/18/2022 Influenza injectable quadriv alent IIV4 with preservative 01/28/2016 Influenza injectable quadriv alent preservative free 06/18/2021,01/16/2015 Influenza, High Dose Seasona l, Preservative Free 01/24/2017 Influenza, IIV3, injectable 12/31/2021,1 ,12/31/2018,03/16,01/28/2015,02/13/2014,01/17/2014 Influenza, Split (incl. brandee fied surface antigen) 03/16/2016,02/07/2015,02/13/2014,01/24,01/07/2012 Pneumococcal Conjugate PCV 13 01/16/2015 Pneumococcal Polysaccharide PPSV23 01/24/2017,,02/14/2008 RSV Bivalent 07/28/2023 Tdap 10/05/2021,01/07/2012 Zoster, Recombinant 08/19/2021,06/18/2021 Zoster, live 01/26/2013 Family History Medical History Relation Name Comments Cancer Maternal Grandmother Diabetes Neg Hx Relation Name Status Comments Maternal Grandmother Social History Tobacco Use Types Packs/Day Years Used Date Smoking Tobacco: Former Cigarettes Smokeless Tobacco: Never Tobacco Cessation:Counseling Given: Not Answered Alcohol Use Standard Drinks/Week Comments Yes 0 [...] Orientation Straight 03/01/2022 10 :14 AM EDT Last Filed Vital Signs Vital Sign Reading Time Taken Comments Blood Pressure 130/58 07/26/2024 9:15 AM EDT Pulse 80 07/26/2024 9:15 AM EDT Temperature 36.2 ??C (97.1 ??F) 07/26/2024 9:15 AM ED T Respiratory Rate 20 07/26/2024 9:15 AM EDT Oxygen Saturation 95% 07/26/2024 9:15 AM EDT Inhaled Oxygen Concentration - - Weight 65.7 kg (144 lb 12.8 oz) 07/26/2024 9:15 AM EDT Height 142.9 cm (4' 8.25 ) 07/26/2024 9:15 AM ED T Body Mass Index 32.18 07/26/2024 9:15 AM EDT Plan of Treatment Upcoming Encounters Date Type Department Care Team (Late st Contact Info) Description 08/31/2024 10:30 AM EDT Clinical Support [facility] [address] [place] [address] Roxy Carey, RN [address] [place] [address] 09/26/2024 9:30 AM EDT Medication Management [facility] [address] [place] [address] Fior Bhandari PharmD [address] [place] [address] 01/14/2025 9:30 AM EDT Office Visit [facility] [address] [place] [address] Jennifer Morgan, OD [address] [place] [address] Health Maintenance Due Date Last Done Comments Influenza Vaccine (#1) 2024 , 01/18/2022, 12/31/2021, Additional history exists Postponed from 01/01/2024 (Patient Refused) Tobacco Screening 01/19/2025 01/20/2024 Diabetes: Hemoglobin A1C 01/26/2025 025, 02/15/2024, 07/25/2023, Additional history exists Lipid Panel 03/13/2025 03/13/2024, 07/01, 11/29/2022, Additional history exists Alcohol/Substance Use Screening 07/26/2025 07/26/2024 COVID-19 Vaccine ( season) 2025 Postponed from 01/01/2024 (Patient Refused) Depression Screening 07/26/2025 07/26/2024, 07/27/19 Diabetes: Foot Exam 07/26/2025 07/26/2024, 07/26/2024, 07/26/2024, Additional history exists Diabetes: Urine Protein Screening 07/26/2025 07/26/2024, 05/08/2024, 07/25/2023, Additional history exists SDOH Screening 07/26/2025 07/26/2024 Eye Exam 01/11/2026 01/12/2024, 12/31, 01/12/2024, Additional history exists DTaP/Tdap/Td Vaccines (3 - Td or Tdap) 10/06/2031 10/05/2021, 01/07/2012 Pneumococcal Vaccine: 50+ Years Completed 01/24/2017, 01/16/2015, 06/11/2012, Additional history exists Hepatitis B Vaccines Completed 06/18/2021, 05/11/2018, 01/24/2013 Zoster Vaccines Completed 08/19/2021, 06/02, 01/26/2013 Colonoscopy Discontinued 11/04/2022, 04/01/2013 Colorectal Cancer Screening Discontinued RSV Patients and Patients Aged 60 years or older Completed 07/28/2023 Hepatitis A Vaccines Completed 07/26/2024, 01/28/2023, 10/06/2022 CT Colonography Discontinued FIT DNA/Cologuard Discontinued FIT Discontinued FOBT Discontinued HIB Vaccines Aged Out No longer eligi ble based on patient's age to complete this topic HPV Vaccines Aged Out No longer eligi ble based on patient's age to complete this topic IPV Vaccines Aged Out No longer eligi ble based on patient's age to complete this topic Meningococcal Vaccine Aged Out No josé miguel maggie eligible based on patient's age to complete this topic RSV under 20 months Aged Out No longe r eligible based on patient's age to complete this topic Rotavirus Vaccines Aged Out No longer eligible based on patient's age to complete this topic Sigmoidoscopy Discontinued Goals Goal Patient Goal Type Associated Problems Recent Progress Patient-Stated? Author Blood Pressure < 140/90 Blood Pressure 130/58(2024 9:15 AM EDT) No Piers-Gambl e, Fior, PharmD Hemoglobin A1c < 7.5 Result Component 6.4( 9:24 AM EDT) No Fior Casillas PharmD Procedures Procedure Name Priority Date/Time Associated Diagnosis Comments POCT GLYCATED HEMOGLOBIN, TOTAL Routine 07/26/2024 9:24 AM EDT Type 2 diabetes mellitus without complication, with long-term current use of insulin (CMS/HCC) POCT GLUCOSE Routine 07/26/2024 9:24 AM EDT Type 2 diabetes mellitus without complication, with long-term current use of insulin (CMS/[facility]) BASIC METABOLIC PANEL Routine 07/26/2024 8:20 AM EDT HEPATIC FUNCTION PANEL Routine 8:20 AM EDT Type 2 diabetes mellitus without complication, with long-term current use of insulin (CMS/[facility]) ALBUMIN, RANDOM URINE W/CREATININE Routine 07/26/2024 8:20 AM EDT Type 2 diabetes mellitus without complication, with long-term current use of insulin (CMS/HCC) LIPID PANEL, STANDARD Routine 03/13/2024 9:20 AM EST HM COLONOSCOPY Routine 11/04/2022 IP CONSULT TO OPHTHALMOLOGY Routine 05/21/2022 10:13 AM EST from Last 3 Months or Most Recently Relevant to Health Maintenance Results * (ABNORMAL) POCT HGB A1C (07/26/2024 9:24 AM EDT) Hemoglobin A1C 6.4(A) 4.0 - 6.0 % QC Media Lot # [id number] Lot# Expiration Date [id number] Blood 07/26/2024 9:24 AM EDT Marisol Perry MD POINT OF CARE TEST ENTER/E DIT ORDERABLES Final Result * POCT Glucose (07/26/2024 9:24 AM EDT) Glucose Blood, POC 146 60 - 200 mg/dL QC Media Lot # [id number] Lot# Expiration Date ,002 Blood Capillary blood specimen / Unknown 07/26/2024 9:24 AM EDT Marisol Perry MD POINT OF CARE TEST ENTER/E DIT ORDERABLES Final Result * (ABNORMAL) Albumin, Random Urine W/Creatinine (07/26/2024 8:20 AM EDT) Creatinine, Urine 91.76 mg/dL [facility] Microalbumin Urine 129.0 mg/L [facility] Microalbum Creatinine Ratio Ur 140.5(H) <30 ug/mg cr [facility] Comment:Albumin/Creatinine R atio Reference Ranges: Normal: < 30 ug/mg creatinine Microalbuminuria: 30 - 300 ug/mg creatinineClinical Albuminuria: > 300 ug/mg creatinine Urine 07/26/2024 8:20 AM EDT 07/26/2024 11:03 AM EDT Marisol Perry MD LAB URINE ORDERABLES Final Result Performing Organization Address City/State/[facility] Co de Phone Number [facility] [address] [place] [phone] * Hepatic Function Panel (07/26/2024 8:20 AM EDT) Bilirubin, Total 0.4 0.0 - 1.0 mg/dL [facility] Bilirubin, Direct 0.2 0.0 - 0.5 mg/dL [facility] Aspartate Amino Transferase 23 5 - 31 U/L [facility] Alanine Aminotransferase 20 0 - 31 U/L [facility] Total Protein 7.0 6.5 - 8.0 g/dL [facility] Albumin Level 4.3 3.5 - 5.0 g/dL [facility] Alkaline Phosphatase 86 39 - 117 U/L [facility] Blood Venous blood specimen / Unknown 07/26/2024 8:20 AM EDT 07/26/2024 11:01 AM EDT Marisol Perry MD LAB BLOOD ORDERABLES Final Result [facility] [address] [place] [phone] * (ABNORMAL) Basic Metabolic Panel (07/26/2024 8:20 AM EDT) Sodium 144 135 - 145 mmol/L [facility] Potassium 3.5 3.3 - 5.1 mmol/L [facility] Chloride 113(H) 96 - 108 mmol/L [facility] Carbon Dioxide 22 22 - 29 mmol/L [facility] Anion Gap 13 12 - 20 [facility] Urea Nitrogen (BUN) 24(H) 9 - 16 mg/dL [facility] Creatinine, Serum 0.80 0.5 - 1.4 mg/dL [facility] Estimated Glomerular Filt Rate >60 [facility] Comment:Chronic Kidney Disea se: Estimated GFR < 60 mL/min/1.28s4Blviya Kidney Disease: Estimated GFR < 15 mL/min/1.73m2 Glucose 126(H) 60 - 115 mg/dL [facility] Calcium 9.4 8.4 - 10.2 mg/dL [facility] 07/26/2024 8:20 AM EDT 07/26/2024 11:01 AM EDT Marisol Perry MD LAB BLOOD ORDERABLES Final Result Performing Organization Address City/[facility]/ZIP Co de Phone Number [facility] [address] [place] [phone] [phone] * Lipid Panel, Standard (03/13/2024 9:20 AM EST) Triglycerides 147 <150 mg/dL [facility] Comment:Desirable Triglyceri de: less than 150 mg/dLBorderline High Triglyceride 150-199 mg/dLHigh Triglyceride: 200-499 mg/dLVery High Triglyceride: greater than or equal to 5OO mg/dL Cholesterol 136 <200 mg/dL [facility] Comment:Desirable Cholestero l: less than 200 mg/dLBorderline High Cholesterol: 200-239 mg/dLHigh Cholesterol: greater than 239 mg/dL LDL Cholesterol Calculated 64 <100 mg/dL [facility] Comment:Desirable LDL: less than 100 mg/dLNear Optimal/Above Optimal LDL: 110- 129 mg/dLBorderline High LDL: 130-159 mg/dLHigh LDL: 160-189 mg/dLVery High LDL: greater than or equal to 190 mg/dL HDL Cholesterol 43 >40 mg/dL [facility] Comment:Desirable HDL: great er than 40 mg/dL Note: This HDL assay may give artificially low results in patients with liver disease. 03/13/2024 9:20 AM EST 03/13/2024 11:22 AM EST Marisol Perry MD LAB BLOOD ORDERABLES Final Result [facility] [address] [place], [place] [phone] * Colonoscopy (11/04/2022) [facility] Colonoscopy Normal Normal Comment:With Dr. 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
--- OUTSIDE RECORDS SUMMARY | 2024-08-23 08:41 | XMS_ITS ---
Author Organization [facility] Address [address] [place] [address] Care Team Providers Care Clerk Cashier Name Role Phone Marisol Perry MD Primary Care Provider Slaina Varun Borrero Unavailable [phone] Allergies Allergen (clinical drug ingredient) Drug/Non Drug Allergy documented on EMR Reaction Allergy Type Onset Date Status Penicillin Unknown Drug Allergy Active Shellfish (FN) shell fish (uncoded) Unknown Allergy Active Medications Medication SIG (Take, Route, Frequency, Duration) Notes Start Date End Date Status Myrbetriq Active Ocuvite-Lutein Activ e oxyCODONE-Acetaminophen Active Percocet 5-325mg 1 tablet as needed Orally every 6 hrs prn Active Cartia XT Active Fluticasone-Salmeterol Active Omeprazole 20 MG 1 capsule Orally Onc e a day Active oxyBUTYnin Chloride ER 5 MG TAKE 1 TABLE T EVERY MORNING Oral for 30 Active Aspir-81 81 MG 1 tablet Orally Once a day Active Benadryl 25mg 1 capsule as needed Orally PRN Active EpiPen 2-Charlie 0.3 MG/0.3ML 1 Injection PRN Active Loratadine 10 MG 2 tablets Orally Onc e a day Active Flonase 50 MCG/ACT 1 spray in each nost ril Nasally Once a day Active metFORMIN HCl 500 MG 1 tablet with a bo l Orally Once a day Active Levothyroxine Sodium 75mcg 1 capsule Ora lly Once a day Active Lisinopril 20 MG 1 tablet Orally Once a day Active Calcium + D 600mg 1 tablet with meals Orally once a day Active Advair Diskus 250-50 MCG/DOSE 1 puff Inhalation once a day Active Proventil HFA 108 (90 Base) MCG/ACT 2 puffs as needed Inhalation every 4 hrs Active Dicyclomine HCl 10 MG 1 or 2 capsules Or ally Every 6 hours as needed for abominal discomfort, cramps, bloating for 30 day(s) 08/23/2023 Active Cardizem CD 240mg 1 capsule Orally Onc e a day Active Omeprazole 40 MG 1 Orally Every morni ng for 30 day(s) 08/23/2023 Active Problems Problem Type SNOMED Code ICD Code Onset Dates Problem Status W/U Status Risk Notes Problem Irritable bowel syndrome (51374304) Irritable bowel syndrome (K58.9) Active confirmed Problem Gastroesophageal reflux disease (disorder) (426213306) Chronic GERD (K21.9) Active confirmed Vital Signs Temperature 97.1 degrees Fahrenheit 08/23/19 24 Blood pressure systolic 000 mm Hg 08/23/19 24 Blood pressure diastolic 00 mm Hg 024 Height 56.25 in 08/23/2023 Weight 147 lbs 08/23/2023 BMI 32.66 kg/m2 08/23/2023 Encounters Encounter Location Date Provider Diagnosis [facility] [address] [place] [address] 08/23/2023 Varun Alvarez History of hepatitis C Z86.19 ; Irritable bowel syndrome K58.9 ; Liver fibrosis K74.00 and Chronic GERD K21.9 Assessments Encounter Date Diagnosis (ICD Code) Assessment Notes Treatment Notes Treatment Clinical Notes Section Notes 08/23/2023 History of hepatitis C (ICD-10 - Z86.19) Overall, [place] appears well from a clinical standpoint and does not show any signs nor have any particular symptoms to suggest worsening of her liver disease. I did recommend a followup abdominal ultrasound for further screening given her long-standing chronic liver disease, and will also check laboratories including an alpha-fetoprotei n level, CBC with platelet count, and PT with INR. In regard to her increasing reflux I shall increase her omeprazole to 40 mg daily. We did review that she needs to be careful with her diet. Given no other worrisome symptoms I don't think she requires an upper endoscopy at this time. The remainder of her abdominal complaints and irregular bowel movements sounds consistent with some irregular bowel movements in relation to irritable bowel syndrome. Given the otherwise negative colonoscopy less than one year ago I don't think this needs to be reevaluated and we reviewed that her occasional small amounts of red blood mixed with a bowel movement with be consistent with some hemorrhoidal bleeding. I did recommend that she also be careful with her diet and avoid any greasy foods and significant amount of dairy products or caffeine. I shall give her a trial of some dicyclomine to use on a p.r.n. basis for the abdominal bloating and cramps. She could also try some Imodium as needed. If things remains stable I will plan to see her in one year for a followup visit. I advised her to call prior to that if she has any persistent or worsening problems, or any questions I can be of assistance with. [place] and her were comfortable with this plan. Thank you again for allowing me to participate in [place]'s care. I shall continue to keep you advise her progress. 08/23/2023 Irritable bowel syndrome (ICD-10 - K58.9) Overall, [place] appears well from a clinical standpoint and does not show any signs nor have any particular symptoms to suggest worsening of her liver disease. I did recommend a followup abdominal ultrasound for further screening given her long-standing chronic liver disease, and will also check laboratories including an alpha-fetoprotei n level, CBC with platelet count, and PT with INR. In regard to her increasing reflux I shall increase her omeprazole to 40 mg daily. We did review that she needs to be careful with her diet. Given no other worrisome symptoms I don't think she requires an upper endoscopy at this time. The remainder of her abdominal complaints and irregular bowel movements sounds consistent with some irregular bowel movements in relation to irritable bowel syndrome. Given the otherwise negative colonoscopy less than one year ago I don't think this needs to be reevaluated and we reviewed that her occasional small amounts of red blood mixed with a bowel movement with be consistent with some hemorrhoidal bleeding. I did recommend that she also be careful with her diet and avoid any greasy foods and significant amount of dairy products or caffeine. I shall give her a trial of some dicyclomine to use on a p.r.n. basis for the abdominal bloating and cramps. She could also try some Imodium as needed. If things remains stable I will plan to see her in one year for a followup visit. I advised her to call prior to that if she has any persistent or worsening problems, or any questions I can be of assistance with. [place] and her were comfortable with this plan. Thank you again for allowing me to participate in [place]'s care. I shall continue to keep you advise her progress. 08/23/2023 Liver fibrosis (ICD-10 - K74.00) Overall, [place] appears well from a clinical standpoint and does not show any signs nor have any particular symptoms to suggest worsening of her liver disease. I did recommend a followup abdominal ultrasound for further screening given her long-standing chronic liver disease, and will also check laboratories including an alpha-fetoprotei n level, CBC with platelet count, and PT with INR. In regard to her increasing reflux I shall increase her omeprazole to 40 mg daily. We did review that she needs to be careful with her diet. Given no other worrisome symptoms I don't think she requires an upper endoscopy at this time. The remainder of her abdominal complaints and irregular bowel movements sounds consistent with some irregular bowel movements in relation to irritable bowel syndrome. Given the otherwise negative colonoscopy less than one year ago I don't think this needs to be reevaluated and we reviewed that her occasional small amounts of red blood mixed with a bowel movement with be consistent with some hemorrhoidal bleeding. I did recommend that she also be careful with her diet and avoid any greasy foods and significant amount of dairy products or caffeine. I shall give her a trial of some dicyclomine to use on a p.r.n. basis for the abdominal bloating and cramps. She could also try some Imodium as needed. If things remains stable I will plan to see her in one year for a followup visit. I advised her to call prior to that if she has any persistent or worsening problems, or any questions I can be of assistance with. [place] and her were comfortable with this plan. Thank you again for allowing me to participate in [place]'s care. I shall continue to keep you advise her progress. 08/23/2023 Chronic GERD (ICD-10 - K21.9) Overall, [place] appears well from a clinical standpoint and does not show any signs nor have any particular symptoms to suggest worsening of her liver disease. I did recommend a followup abdominal ultrasound for further screening given her long-standing chronic liver disease, and will also check laboratories including an alpha-fetoprotei n level, CBC with platelet count, and PT with INR. In regard to her increasing reflux I shall increase her omeprazole to 40 mg daily. We did review that she needs to be careful with her diet. Given no other worrisome symptoms I don't think she requires an upper endoscopy at this time. The remainder of her abdominal complaints and irregular bowel movements sounds consistent with some irregular bowel movements in relation to irritable bowel syndrome. Given the otherwise negative colonoscopy less than one year ago I don't think this needs to be reevaluated and we reviewed that her occasional small amounts of red blood mixed with a bowel movement with be consistent with some hemorrhoidal bleeding. I did recommend that she also be careful with her diet and avoid any greasy foods and significant amount of dairy products or caffeine. I shall give her a trial of some dicyclomine to use on a p.r.n. basis for the abdominal bloating and cramps. She could also try some Imodium as needed. If things remains stable I will plan to see her in one year for a followup visit. I advised her to call prior to that if she has any persistent or worsening problems, or any questions I can be of assistance with. [place] and her were comfortable with this plan. Thank you again for allowing me to participate in [place]'s care. I shall continue to keep you advise her progress. Plan Of Treatment Medication Medication Name Sig Start Date Stop Date Notes Dicyclomine HCl 10 MG 1 or 2 capsules Or ally Every 6 hours as needed for abominal discomfort, cramps, bloating for 30 day(s) 08/23/2023 Omeprazole 40 MG 1 Orally Every morning for 30 day(s) 08/01 Pending Test Test Name Order Date LIVER PROFILE 08/23/2023 CBC w DIFF 08/23/2023 ALPHA-FETOPROTEIN,TUMOR MARKER 4 Prothrombin Time INR 08/23/2023 Liver Fibrosis Pnl 08/23/2023 US abdomen comp w elastography 4 Next Appt Details Follow Up: 1 Year, Reason: Provider Name:Varun Alvarez , 12/04/2024 10:10:00 AM, [address], [address], [place], [address], Progress Notes * ANAM CORTEZOB: 7 (78 yo F)Acc No.[id number]:08/23/2023 Progress Notes Patient:MALI GA Provider:?Varun Alvarez MD :1945???Age:78 Y???Sex:Female D ate:08/23/2023 Address:[address] [place], [place] [id number] Pcp:Marisol Perry MD Subjective: * Chief Complaints: * ??? * HPI: ???incontinence:? I saw [place] in followup today in regard to her history of previous hepatitis C, liver fibrosis, gastroesophageal reflux, and irregular bowel movements. She is accompanied by her who helped with interpreting. ?I last saw [place] in September of 2022, at which time she underwent a negative screening colonoscopy other than some internal hemorrhoids and diverticulosis. Studies earlier that year included an abdominal ultrasound that was negative for any kind of liver mass, splenomegaly, ascites, nor definitive cirrhosis. She describes that she presently feels well but has been having some trouble with increasing reflux and abdominal discomfort with loose stools on a postprandial basis. She has noted rare episodes of bright red blood mixed with her brown stool. She describes her bowel movements are soft and loose, but not particularly watery. She denies any melena. She denies any nausea nor vomiting. She describes that her abdominal discomfort is rather diffuse although more localized to the right side. She describes a sense of bloating and abdominal cramps. She denies any jaundice, fevers, nor weight loss. She denies any pruritus, increasing abdominal girth, nor edema. ?She does take omeprazole 20 mg daily. ?Laboratories last month revealed normal chemistries and LFTs. * ROS:?General/Constitutional:?Change in appetite?denies.?Chills?denies.?Fatigue?denies.?Ophthalmologic:?Patient denies? Negative..?ENT:?Patient denies?Negative..?Respiratory:?Patient denies?No coughing/hemoptysis..?Cardiovascular:?Patient denies? No chest pain/orthopnea..?Gastrointestinal:?Comments?See HPI for details.?Genitourinary:?Patient denies? No dysuria/hematuria..?Comments?Occasional incontinence.?Incontinence?admits.?Musculoskeletal:?Patient denies? No specific arthralgias/myalgias..?Skin:?Patient denies?No rash/pruritus..?Neurologic:?Patient denies? No headaches/seizures..?Psychiatric:?Patient denies?Negative..? * Medical History:? * Surgical History:?left hip r eplacement-2009 partial hysterectomy BTL bladder suspension hemorrhoid surgery on 02/11/2017--Dr. Guerra cataract surgery in 2021 bilateral * Hospitalization/Major Diagno stic Procedure:?No Hospitalization History. * Family History:?Father: dece ased.?Mother: .?Paternal Grand Mother: , diagnosed with Colon cancer.? No family hx of colorectal cancer. * Social History:?Tobacco Use:?Tobacco Use/Smoking?Are you a: former smoker , How long has it been since you last smoked?: > 10 years.?Drugs/Alcohol:?Alcohol Screen?Points: 1, Interpretation: Negative.?Miscellaneous:?Marital status: single. Occupation: unemployed. ???Nonsmoker >35 yrs; no alcohol. * Medications:?TakingCardizem CD 240mg Capsule Extended Release 24 Hour 1 capsule Orally Once a dayProventil HFA 108 (90 Base) MCG/ACT Aerosol Solution 2 puffs as needed Inhalation every 4 hrsCalcium + D 600mg Tablet 1 tablet with meals Orally once a dayAdvair Diskus 250-50 MCG/DOSE Aerosol Powder Breath Activated 1 puff Inhalation once a dayLevothyroxine Sodium 75mcg Capsule 1 capsule Orally Once a dayLisinopril 20 MG Tablet 1 tablet Orally Once a daymetFORMIN HCl 500 MG Tablet 1 tablet with a meal Orally Once a dayFlonase 50 MCG/ACT Suspension 1 spray in each nostril Nasally Once a dayEpiPen 2-Charlie 0.3 MG/0.3ML Solution Auto-injector 1 Injection PRNLoratadine 10 MG Tablet 2 tablets Orally Once a dayBenadryl 25mg Capsule 1 capsule as needed Orally PRNAspir-81 81 MG Tablet Delayed Release 1 tablet Orally Once a dayPercocet 5- 325mg Tablet 1 tablet as needed Orally every 6 hrs prnOmeprazole 20 MG Capsule Delayed Release 1 capsule Orally Once a dayoxyBUTYnin Chloride ER 5 MG Tablet Extended Release 24 Hour TAKE 1 TABLET EVERY MORNING Oral Cartia XT Fluticasone- Salmeterol Ocuvite-Lutein oxyCODONE-Acetaminophen Myrbetriq Taking Cardizem CD 240mg Capsule Extended Release 24 Hour 1 capsule Orally Once a dayTaking Proventil HFA 108 (90 Base) MCG/ACT Aerosol Solution 2 puffs as needed Inhalation every 4 hrsTaking Calcium + D 600mg Tablet 1 tablet with meals Orally once a dayTaking Advair Diskus 250- 50 MCG/DOSE Aerosol Powder Breath Activated 1 puff Inhalation once a dayTaking Levothyroxine Sodium 75mcg Capsule 1 capsule Orally Once a dayTaking Lisinopril 20 MG Tablet 1 tablet Orally Once a dayTaking metFORMIN HCl 500 MG Tablet 1 tablet with a meal Orally Once a dayTaking Flonase 50 MCG/ACT Suspension 1 spray in each nostril Nasally Once a dayTaking EpiPen 2-Charlie 0.3 MG/0.3ML Solution Auto-injector 1 Injection PRNTaking Loratadine 10 MG Tablet 2 tablets Orally Once a dayTaking Benadryl 25mg Capsule 1 capsule as needed Orally PRNTaking Aspir-81 81 MG Tablet Delayed Release 1 tablet Orally Once a dayTaking Percocet 5-325mg Tablet 1 tablet as needed Orally every 6 hrs prnTaking Omeprazole 20 MG Capsule Delayed Release 1 capsule Orally Once a dayTaking oxyBUTYnin Chloride ER 5 MG Tablet Extended Release 24 Hour TAKE 1 TABLET EVERY MORNING Oral Taking Cartia XT Taking Fluticasone-Salmeterol Taking Ocuvite-Lutein Taking oxyCODONE-Acetaminophen Taking Myrbetriq DiscontinuedMiraLax (colon prep) 17 GM/SCOOP Powder 1 238Gm bottle mixed with Gatorade or Crystal Light Orally begin at 5:00 p.m. the day before the procedureDulcolax (colon prep) 5 MG Tablet Delayed Release take at 3:00 p.m and 7:00p.m. Orally two tablets twice a day for one dayMedication List reviewed and reconciled with the patientDiscontinued MiraLax (colon prep) 17 GM/SCOOP Powder 1 238Gm bottle mixed with Gatorade or Crystal Light Orally begin at 5:00 p.m. the day before the procedureDiscontinued Dulcolax (colon prep) 5 MG Tablet Delayed Release take at 3:00 p.m and 7:00p.m. Orally two tablets twice a day for one dayMedication List reviewed and reconciled with the patient * Allergies:?Clarissa salas[Allergies Verified] Objective: * Vitals:?Wt: 147 lbs, Ht: 56. 25 in, BMI:32.66 Index, BP: 000/00 mm Hg, Temp: 97.1. * Examination: ???General Examination: ?GENERAL APPEARANCE:?pleasant, well nourished, well developed, in no acute distress.?EYES:?sclera non-icteric.?ORAL CAVITY:?mucosa moist.?NECK/THYROID:?no cervical lymphadenopathy, neck supple.?SKIN:?nonjaundiced, no spider angiomata..?HEART:?S1, S2 normal.?LUNGS:?clear to auscultation bilaterally.?ABDOMEN:?normal bowel sounds, no guarding or rigidity, no hepatosplenomegaly, no masses palpable, soft, nontender, nondistended..?EXTREMITIES:?no edema.?NEUROLOGIC:?alert and oriented.? Assessment: * Assessment: 1.?Irritable bowel syndrome - K58.9 (Primary)?2.?History of hepatitis C - Z86.19?3.?Liver fibrosis - K74.00?4.?Chronic GERD - K21.9? Overall, [place] appears well from a clinical standpoint and does not show any signs nor have any particular symptoms to suggest worsening of her liver disease. I did recommend a followup abdominal ultrasound for further screening given her long-standing chronic liver disease, and will also check laboratories including an alpha-fetoprotein level, CBC with platelet count, and PT with INR. In regard to her increasing reflux I shall increase her omeprazole to 40 mg daily. We did review that she needs to be careful with her diet. Given no other worrisome symptoms I don't think she requires an upper endoscopy at this time. The remainder of her abdominal complaints and irregular bowel movements sounds consistent with some irregular bowel movements in relation to irritable bowel syndrome. Given the otherwise negative colonoscopy less than one year ago I don't think this needs to be reevaluated and we reviewed that her occasional small amounts of red blood mixed with a bowel movement with be consistent with some hemorrhoidal bleeding. I did recommend that she also be careful with her diet and avoid any greasy foods and significant amount of dairy products or caffeine. I shall give her a trial of some dicyclomine to use on a p.r.n. basis for the abdominal bloating and cramps. She could also try some Imodium as needed. If things remains stable I will plan to see her in one year for a followup visit. I advised her to call prior to that if she has any persistent or worsening problems, or any questions I can be of assistance with. [place] and her were comfortable with this plan. Thank you again for allowing me to participate in [place]'s care. I shall continue to keep you advise her progress. Plan: * Treatment: 2.?History of hepatitis C?LAB: LIVER PROFILE ?LAB: CBC w DIFF ?LAB: ALPHA-FETOPROTEIN,TUMOR MARKER ?LAB: Prothrombin Time INR ?LAB: Liver Fibrosis Pnl ?Imaging: US abdomen comp w elastography * 3.?Liver fibrosis?LAB: LIVER PROFILE ?LAB: CBC w DIFF ?LAB: ALPHA-FETOPROTEIN,TUMOR MARKER ?LAB: Prothrombin Time INR ?LAB: Liver Fibrosis Pnl4.?Chronic GERD? Start Omeprazole Capsule Delayed Release, 40 MG, 1, Orally, Every morning, 30 day(s), 30, Refills 11.?? * Procedure Codes:?1036F TOBAC CO [id number] BP SCR NOT PRFRM REC REASON NOS * Preventive Medicine:? ??Counseling:?Care goal follow-up plan:?Above Normal BMI Follow-up?Giving encouragement to exercise,?BMI management provided?Yes.? ??Urinary Incontinence:?Urinary Incontinence?Assessment:?Present,?Plan of care documented:?Yes,?Type of plan of care:?Lifestyle interventions.? * Follow Up:?1 Year * * Sign off status: Completed true * Provider:?Varun Alvarez MD Date:? 024 Generated for Obed badillo/Jeanette/Jaiden on:?08/23/2024 08:40 AM EDT History and Physical Notes * HPI (History of Present Illness) Category Sub-Category Detail Notes Category Not es incontinence I saw [place] in followup today in regard to her history of previous hepatitis C, liver fibrosis, gastroesophageal reflux, and irregular bowel movements. She is accompanied by her who helped with interpreting. I last saw [place] in September of 2022, at which time she underwent a negative screening colonoscopy other than some internal hemorrhoids and diverticulosis. Studies earlier that year included an abdominal ultrasound that was negative for any kind of liver mass, splenomegaly, ascites, nor definitive cirrhosis. She describes that she presently feels well but has been having some trouble with increasing reflux and abdominal discomfort with loose stools on a postprandial basis. She has noted rare episodes of bright red blood mixed with her brown stool. She describes her bowel movements are soft and loose, but not particularly watery. She denies any melena. She denies any nausea nor vomiting. She describes that her abdominal discomfort is rather diffuse although more localized to the right side. She describes a sense of bloating and abdominal cramps. She denies any jaundice, fevers, nor weight loss. She denies any pruritus, increasing abdominal girth, nor edema. She does take omeprazole 20 mg daily. Laboratories last month revealed normal chemistries and LFTs. Examination Category Sub-Category Detail Notes Category Not es General Examination GENERAL APPEARANCE: pleasant , well nourished, well developed, in no acute distress EYES: sclera non-icteric NECK/THYROID: no cervical lymphade nopathy, neck supple HEART: S1, S2 normal LUNGS: clear to auscultatio n bilaterally ABDOMEN: normal bowel sounds, no guarding or rigidity, no hepatosplenomegaly, no masses palpable, soft, nontender, nondistended. NEUROLOGIC: alert and oriented SKIN: nonjaundiced, no spi dian angiomata. EXTREMITIES: no edema ORAL CAVITY: mucosa moist
--- OUTSIDE RECORDS SUMMARY | 2024-08-23 08:41 | XMS_ITS | Encounter Summary ---
Author Organization [employer] Address [address] [place] [address] Care Team Providers Care Bank Vault Attendant Name Role Phone Marisol Perry MD Primary Care Provider [phone] Fior Bhandari PharmD Unavailable Varun Alvarez MD Unavailable Ty Moctezuma MD Unavailable Jennifer Morgan OD Unavailable [phone] Encounter Details Date Type Department Care Team (Late st Contact Info) Description 05/10/2022 Orders Only [facility] [address], [place] [phone] Linda Ramires LPN Social History Tobacco Use Types Packs/Day Years Used Date Smoking Tobacco: Never Assessed Comments Unknown Sex and Gender Information Value [...] Description 08/31/2024 10:30 AM EDT Clinical Support [facility] MEDICINE [address] [place] [phone] Roxy Carey, RN [address] [place] [address] 09/26/2024 9:30 AM EDT Medication Management [facility] [address] [place], [place] [phone] Fior Bhandari, PharmD [address] [place] [address] 01/14/2025 9:30 AM EDT Office Visit [facility] OPTOMETRY [address] [place] [address] Jennifer Morgan, OD [address] [place] [address] documented as of this encounter Visit Diagnoses Not on filedocumented in this encounter Care Teams Bank Vault Attendant Relationship Specialty Start Date End Date Marisol Perry MD [address] [place] [address] PCP - General Family Medicine 05/02/18 Fior Bhandari, PharmD [address] [place] [address] Pharmacist Internal Medicine 06/18/22 Varun Alvarez MD [address] [place] [address] Gastroenterology 06/25/24 Ty Moctezuma MD [address] [place] [phone] Cardiology 06/25/24 Jennifer Morgan, JOAN [address] [place] [id number] Optometry 06/25/24 documented as of this encounter
--- OUTSIDE RECORDS SUMMARY | 2024-08-23 08:41 | XMS_ITS | Encounter Summary ---
Author Organization [employer] Address 75 [facility] 7t [place] [address] Care Team Providers Care Specialty Plant Supervisor Name Role Phone Marisol Perry MD Primary Care Provider [phone] Fior Bhandari PharmD Unavailable Varun Alvarez MD Unavailable Ty Moctezuma MD Unavailable Jennifer Morgan OD Unavailable [phone] Encounter Details Date Type Department Care Team (Late st Contact Info) Description 10/04/2022 Abstract [facility] [address] [place], [place] [phone] Marisol Perry MD [address] [place], [place] [phone] Social History Tobacco Use Types Packs/Day Years [...] Orientation Straight 03/01/2022 10 :14 AM EDT COVID-19 Exposure Response Date Recorded In the last 10 days, have yo u been in contact with someone who was confirmed or suspected to have Coronavirus/COVID-19? No / Unsure 10/05/2022 10:18 AM EDT documented as of this encounter Plan of Treatment Upcoming Encounters Date Type Department Care Team (Late st Contact Info) Description 08/31/2024 10:30 AM EDT Clinical Support [facility] [address] [place] [address] Roxy Carey, ALEJANDRA [address] [place] [address] 09/26/2024 9:30 AM EDT Medication Management [facility] [address] [place] [address] Fior Bhandari, PharmD [address] [place] [address] 01/14/2025 9:30 AM EDT Office Visit [facility] [address] [place] [address] Jennifer Morgan, OD [address] [place] [address] documented as of this encounter Goals Goal [...] documented as of this encounter Care Teams Specialty Plant Supervisor Relationship Specialty Start Date End Date Marisol Perry MD [address] [place] [address] PCP - General Family Medicine 05/02/18 Fior Bhandari, PharmD [address] [place] [address] Pharmacist Internal Medicine 06/18/22 Varun Alvarez MD [address] [place] [address] Gastroenterology 06/25/24 Ty Moctezuma MD [address] [place] [address] Cardiology 06/25/24 Jennifer Morgan OD [address] [place] [address] Optometry 06/25/24 documented as of this encounter
--- OUTSIDE RECORDS SUMMARY | 2024-08-23 08:41 | XMS_ITS | Patient Health Record ---
Author Organization [facility] Address [address] [place] [address] Care Team Providers Care Tax Staff Accountant Name Role Phone Marisol Perry MD Primary Care Provider Salina earleilaVarun Oliva Unavailable [phone] Allergies Allergen (clinical drug ingredient) Drug/Non Drug Allergy documented on EMR Reaction Allergy Type Onset Date Status Penicillin Unknown Drug Allergy Active Shellfish (FN) shell fish (uncoded) Unknown Allergy Active Results Component Value Reference Range Notes US abdomen comp w elastograp hy (Not yet reviewed by provider) Interpretation: Performing Lab: Notes/Report: [facility] [address] [place] [address] Ultrasound Report Signed Patient: Mali Montilla MR#: [id number] : 1945 Acct:[id number] Age/Sex: 78 / F ADM Date: 09/06/23 Loc: HO.US Attending Dr: Varun Alvarez MD Ordering Physician: Varun Alvarez Date of Service: 09/06/23 Procedure(s): US abdomen comp w elastography Accession Number(s): [id number] cc: Marisol Perry MD; Varun Alvarez EXAMINATION: US COMPLETE ABDOMEN WITH LIVER ELASTOGRAPHY CLINICAL INFORMATION: Hepatitis C. COMPARISON: None available. TECHNIQUE: Real-time imaging of the abdominal viscera. Noninvasive ultrasound liver fibrosis assessment is performed using Becky ElastPQ point quantification shear wave elastography (2D-SWE) with a C5-2 MHz transducer. Multiple elastography samples are obtained. FINDINGS: PANCREAS: Normal. The visualized pancreatic head and body are normal in appearance. The remainder of the pancreas is obscured from visualization by the overlying bowel gas. ABDOMINAL AORTA: The proximal segment is normal in caliber. The middle, and distal aortic segments are largely obscured by overlapping bowel gas. INFERIOR VENA CAVA: Visualized portions are normal. LIVER: Normal. The liver demonstrates normal size, contour and increased echogenicity. No focal lesion or intrahepatic biliary duct dilatation. The right lobe measures 15.2 cm in length. The left lobe measures 9.1 cm in length. Portal flow is towards the liver (hepatopetal). Shear wave liver elastography median stiffness is 1.62 m/s (reference: normal median stiffness is 1.3 m/s or less). IQR/median stiffness to assess sampling precision is 0.39 (reference: good quality data set is IQR/median stiffness of 0.15 or less). GALLBLADDER: A 3 mm nonmobile polyp is incidentally noted. The gallbladder is physiologically distended without evidence of stones, sludge, polyps, wall thickening or pericholecystic fluid. COMMON BILE DUCT: Normal in caliber measuring 0.3 cm in diameter. RIGHT KIDNEY: At the interpolar aspect, a 1.1 cm benign, simple parapelvic cyst is seen, for which no imaging follow-up is recommended. No hydronephrosis. No renal calculi or focal parenchymal lesions. The kidney measures 9.8 cm in maximum dimension. LEFT KIDNEY: At the interpolar aspect, a 9 mm benign, simple parapelvic cysts seen, for which no imaging follow-up is recommended. No hydronephrosis. No renal calculi or focal parenchymal lesions. The kidney measures 9.0 cm in maximum dimension. SPLEEN: Normal. The spleen measures 7.9 cm in maximum dimension. FREE FLUID: None. US/US abdomen comp w elastography IMPRESSION: 1. There is generalized increase in hepatic echotexture, consistent with fatty infiltration or hepatocellular disease. Please correlate clinically. No focal hepatic mass or intrahepatic biliary dilatation is seen. 2. Liver elastography: Although measurements appear to rule out compensated advanced chronic liver disease, there is statistical variability of the sampling which decreases accuracy. 3. A 3 mm nonmobile gallbladder polyps are seen, for which no imaging follow-up is recommended. REFERENCE: Society of Radiologists in Ultrasound Liver Stiffness Thresholds (2020): LIVER STIFFNESS THRESHOLDS: *Liver Stiffness equal or less than 1.3 m/s: High probability of being normal. *Liver Stiffness less than 1.7 m/s: In the absence of other known clinical signs, rules out compensated advanced chronic liver disease. *Liver Stiffness 1.7-2.1 m/s: Suggestive of compensated advanced chronic liver disease but need further test for confirmation. *Liver Stiffness over 2.1 m/s: Rules in compensated advanced chronic liver disease. *Liver Stiffness over 2.4 m/s: Suggestive of clinically significant portal hypertension. QUALITY OF DATA SET: *IQR/Median value equal or less than 0.15 implies a quality data set. *IQR/Median value over 0.15 implies a poor quality data set. SIGNIFICANT CHANGE FROM PRIOR EXAM: Significant change if liver stiffness measurement is 10% or greater from prior exam. OTHER CONSIDERATIONS: The stage of liver fibrosis may be overestimated in the setting of acute hepatitis, liver inflammation, elevated liver function tests, hepatic vascular congestion, obstructive cholestasis, non-fasting state, and infiltrative diseases such as amyloidosis and lymphoma. In some patients with NAFLD, the liver stiffness thresholds for compensated advanced chronic liver disease may be lower. In causes other than viral hepatitis and NAFLD, liver stiffness thresholds are not well established. Dictated By: Jordan Carlson MD Signed By: <Electronically signed by Jordan Carlson MD in OV> 09/12/232133 DD/ 0911 TD/TT: Clam Dredger: [place] [id number] Ultrasound Report Signed Patient: Mali Velasquez MR#: [id number] : 1945 Acct:[id number] Age/Sex: 78 / F ADM Date: 09/06/23 Loc: HO.US Attending Dr: Varun Alvarez MD Ordering Physician: Varun Alvarez Date of Service: 09/06/23 Procedure(s): US abd omen comp w elastography Accession Number(s): [id number] cc: Dieter Perry MD; Varun Alvarez EXAMINATION: US COMPLETE ABDOMEN WITH LIVER ELASTOGRAPHY CLINICAL INFORMATION: Hepatitis C. COMPARISON: None available. TECHNIQUE: Real-time imaging of the abdominal viscera. Noninvasive ultrasound liver fibrosis asses sment is performed using Becky ElastPQ point quantification shear wave elastography (2D-SWE) with a C5-2 MHz transducer. Multiple elastography samples are obtained. FINDINGS: PANCREAS: Normal. Th e visualized pancreatic head and body are normal in appearance. The romie isra of the pancreas is obscured from visualization by the overlying bowel gas. ABDOMINAL AORTA: The proximal segment is normal in caliber. The middle, and distal aortic se gments are largely obscured by overlapping bowel gas. INFERIOR VENA CAVA: Visualized portions are normal. LIVER: Normal. The l iver demonstrates normal size, contour and increased echogenici ty. No focal lesion or intrahepatic biliary duct dilatation. The right lobe measu res 15.2 cm in length. The left lobe measures 9.1 cm in length. Portal flow is towar ds the liver (hepatopetal). Shear wave liver tello stography median stiffness is 1.62 m/s (reference: normal median stiffn ess is 1.3 m/s or less). IQR/median stiffness to assess sampling precision is 0.39 (reference: good quality data se t is IQR/median stiffness of 0.15 or less). GALLBLADDER: A 3 mm nonmobile polyp is incidentally noted. The gallbladder is physi ologically distended without evidence of stones, sludge, polyps, wall thickening or pericholecystic fluid. COMMON BILE DUCT: No rmal in caliber measuring 0.3 cm in diameter. RIGHT KIDNEY: At the interpolar aspect, a 1.1 cm benign, simple parapelvic cyst is s een, for which no imaging follow-up is recommended. No hydronephrosis. N o renal calculi or focal parenchymal lesions. The kidney measures 9.8 cm in maximum dimension. LEFT KIDNEY: At the interpolar aspect, a 9 mm benign, simple parapelvic cysts seen, for whic h no imaging follow-up is recommended. No hydronephrosis. N o renal calculi or focal parenchymal lesions. The kidney measures 9.0 cm in maximum dimension. SPLEEN: Normal. The spleen measures 7.9 cm in maximum dimension. FREE FLUID: None. U S/US abdomen comp w elastography IMPRESSION: 1. There is generali zed increase in hepatic echotexture, consistent with fatty infiltrat ion or hepatocellular disease. Please correlate clinically. No focal hepatic mass or intrahepatic biliary dilatation is seen. 2. Liver elastograph y: Although measurements appear to rule out compensated advanced chronic liver disease, there is statistical variability of the s ampling which decreases accuracy. 3. A 3 mm nonmobile gallbladder polyps are seen, for which no imaging follow-up is recommended. REFERENCE: Society of Radiologi sts in Ultrasound Liver Stiffness Thresholds (2019): LIVER STIFFNESS THRESHOLDS: *Liver Stiffness equ al or less than 1.3 m/s: High probability of being normal. *Liver Stiffness les s than 1.7 m/s: In the absence of other known clinical signs, rule s out compensated advanced chronic liver disease. *Liver Stiffness 1.7 -2.1 m/s: Suggestive of compensated advanced chronic liver diseas e but need further test for confirmation. *Liver Stiffness ove r 2.1 m/s: Rules in compensated advanced chronic liver disease. *Liver Stiffness ove r 2.4 m/s: Suggestive of clinically significant portal hypertension. QUALITY OF DATA SET: *IQR/Median value eq ual or less than 0.15 implies a quality data set. *IQR/Median value ov er 0.15 implies a poor quality data set. SIGNIFICANT CHANGE F ROM PRIOR EXAM: Significant change i f liver stiffness measurement is 10% or greater from prior exam. OTHER CONSIDERATIONS: The stage of liver f ibrosis may be overestimated in the setting of acute hepatitis, em er inflammation, elevated liver function tests, hepatic vascular con gestion, obstructive cholestasis, non-fasting state, and infiltrat nguyễn diseases such as amyloidosis and lymphoma. In some patients with N AFLD, the liver stiffness thresholds for compensated advanced chronic liver disease may be lower. In causes other than viral hep atitis and NAFLD, liver stiffness thresholds are not well established. Dictated By: Jordan Carlson MD Signed By: <Cheryl iniguez signed by Jordan Carlson MD in OV> 09/12/232133 DD/ 0 TD/TT: Clam Dredger: YAHIR Reason For Referral No Information Medications Medication SIG (Take, Route, Frequency, Duration) Notes Start Date End Date Status Aspir-81 81 MG 1 tablet Orally Once a day Active Proventil HFA 108 (90 Base) MCG/ACT 2 puffs as needed Inhalation every 4 hrs Active Percocet 5-325mg 1 tablet as needed Orally every 6 hrs prn Active Dicyclomine HCl 10 MG 1 or 2 capsules Or ally Every 6 hours as needed for abominal discomfort, cramps, bloating for 30 day(s) 08/23/2023 Active Omeprazole 40 MG 1 Orally Every morni ng for 30 day(s) 08/23/2023 Active Benadryl 25mg 1 capsule as needed Orally PRN Active Cardizem CD 240mg 1 capsule Orally Onc e a day Active EpiPen 2-Charlie 0.3 MG/0.3ML 1 Injection PRN Active Myrbetriq Active Loratadine 10 MG 2 tablets Orally Onc e a day Active metFORMIN HCl 500 MG 1 tablet with a bo l Orally Once a day Active Ocuvite-Lutein Activ e Flonase 50 MCG/ACT 1 spray in each nost ril Nasally Once a day Active oxyCODONE-Acetaminophen Active Levothyroxine Sodium 75mcg 1 capsule Ora lly Once a day Active Cartia XT Active Lisinopril 20 MG 1 tablet Orally Once a day Active Fluticasone-Salmeterol Active Calcium + D 600mg 1 tablet with meals Orally once a day Active Omeprazole 20 MG 1 capsule Orally Onc e a day Active Advair Diskus 250-50 MCG/DOSE 1 puff Inhalation once a day Active oxyBUTYnin Chloride ER 5 MG TAKE 1 TABLE T EVERY MORNING Oral for 30 Active Immunizations Vaccine Route Administration Date Status Comme nts Flu vaccine no Preserv 3 and > Unknown 02/13/2014 Admin istered Flu vaccine no Preserv 3 and > Unknown 01/28/2015 Admin istered Flu vaccine no Preserv 3 and > Unknown 03/16/2016 Admin istered Influenza Unknown 12/31/2018 Administered Influenza Unknown 01/30/2021 Administered Influenza Unknown 12/31/2021 Administered Problems Problem Type SNOMED Code ICD Code Onset Dates Problem Status W/U Status Risk Notes Problem Irritable bowel syndrome (90741896) Irritable bowel syndrome (K58.9) Active confirmed Problem Diverticular disease of colon (309669127) Diverticulosis of large intestine without perforation or abscess without bleeding (K57.30) Active confirmed Problem 260478899 Screening for colon cancer (Z12.11) Active confirmed Problem [id number] Abnormal liver ultrasound (R93.2) Active confirmed Problem 98085836290328 History of hepatitis C (Z86.19) Active confirmed Problem 59160357 Liver fibrosis (K74.0) Active confirmed Problem 86709990 Liver fibrosis (K74.00) Active confirmed Problem Gastroesophageal reflux disease (disorder) (092255343) Chronic GERD (K21.9) Active confirmed Encounters Encounter Location Date Provider Diagnosis [facility] [address] [place] [address] 08/14/2024 Varun Alvarez Plan Of Treatment Pending Test Test Name Order Date BUN 10/25/2015 CREATININE 10/25/2015 LIVER PROFILE 06/27/2018 LIVER PROFILE 02/03/2017 LIVER PROFILE 06/24/2022 LIVER PROFILE 09/30/2015 LIVER PROFILE 08/23/2023 LIVER PROFILE 06/27/2014 LIVER PROFILE 10/12/2019 CBC w DIFF 10/12/2019 CBC w DIFF 06/27/2018 CBC w DIFF 02/03/2017 CBC w DIFF 06/24/2022 CBC w DIFF 09/30/2015 CBC w DIFF 08/23/2023 PROTHROMBIN TIME (PT, INR) 10/12/2019 PROTHROMBIN TIME (PT, INR) 06/27/2018 PROTHROMBIN TIME (PT, INR) 02/03/2017 PROTHROMBIN TIME (PT, INR) 09/30/2015 ALPHA-FETOPROTEIN,TUMOR MARKER 6 ALPHA-FETOPROTEIN,TUMOR MARKER 4 ALPHA-FETOPROTEIN,TUMOR MARKER 0 ALPHA-FETOPROTEIN,TUMOR MARKER 3 ALPHA-FETOPROTEIN,TUMOR MARKER 9 ALPHA-FETOPROTEIN,TUMOR MARKER 7 ALPHA-FETOPROTEIN,TUMOR MARKER 5 HEPATITIS C VIRAL LOAD 06/27/2014 MRI ABD W&WO CONTRAST 10/25/2015 US ABD 02/10/2021 US ABDOMEN COMP WITH ELASTOGRAPHY 2022 Prothrombin Time INR 06/24/2022 Prothrombin Time INR 08/23/2023 Alpha Fetoprotein 02/10/2021 Liver Fibrosis Pnl 06/24/2022 Liver Fibrosis Pnl 08/23/2023 US abdomen comp w elastography 4 US abdomen comp w elastography 4 Future Test Test Name Order Date COLONOSCOPY 02/13/2013 COLONOSCOPY 06/24/2022 Next Appt Details Provider Name:Varun Alvarez , 12/04/2024 10:10:00 AM, [address], [address], [place], [address], Insurance Providers Payer Name Payer Address Payer Phone Subscriber Number Group Number Insured Name Patient Relationship to Insured Coverage Start Date Coverage End Date [facility] 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 Nondetectable HCV viral load in 06/2014 anxiety asthma hypertension type II diabetes Denies NM,CVA,renal disease Neg colonoscopy in 03/2002 except int he morrhoids GERD--EGD in 1996 neg for Alvarez's,esop hagitis, nor varices Sleep apnea-on CPAP Hypothyroidism Colonoscopy in 04/2013--negative, althou gh prep somewhat limited palpitations PSVT Negative screening colonoscopy in September Surgical History Surgery Date(Month/Year) left hip replacement-2009 partial hysterectomy BTL bladder suspension hemorrhoid surgery on 02/11/2017--Dr. Racheal prater cataract surgery in 2021 bilateral
--- OUTSIDE RECORDS SUMMARY | 2024-08-23 08:41 | XMS_ITS | Encounter Summary ---
Author Organization [employer] Address [address] [facility] 7t [place] [address] Care Team Providers Care Load Blocker Name Role Phone Marisol Perry MD Primary Care Provider [phone] Fior Bhandari PharmD Unavailable Varun Alvarez MD Unavailable Ty Moctezuma MD Unavailable Jennifer Morgan OD Unavailable Encounter Details Date Type Department Care Team (Late st Contact Info) Description 06/07/2022 Orders Only [facility] [address] [place] [address] Leisa Villanueva LPN Social History Tobacco Use Types Packs/Day [...] Description 08/31/2024 10:30 AM EDT Clinical Support [facility] [address] [place] [address] [phone] Roxy Carey RN [address] [place] [address] 09/26/2024 9:30 AM EDT Medication Management [facility] [address] [place] [phone] Fior Bhandari, PharmD [address] [place] [address] 01/14/2025 9:30 AM EDT Office Visit [facility] [address] [place] [address] Jennifer Morgan, OD [address] [place] [address] documented as of this encounter Visit Diagnoses Not on filedocumented in this encounter Care Teams Load Blocker Relationship Specialty Start Date End Date Marisol Perry MD [address] [place] [address] PCP - General Family Medicine 05/02/18 Fior Bhandari, PharmD [address] [place] [address] Pharmacist Internal Medicine 06/18/22 Varun Alvarez MD [address] [facility] [address] [place] [address] Gastroenterology 06/25/24 Ty Moctezuma MD [address] [place] [address] Cardiology 06/25/24 Jennifer Morgan, JOAN [address] [place] [address] Optometry 06/25/24 documented as of this encounter
--- OUTSIDE RECORDS SUMMARY | 2024-08-23 08:41 | XMS_ITS | Encounter Summary ---
Author Organization [employer] Address 75 [facility] 7t [place] [address] Care Team Providers Care Museum Librarian Name Role Phone Marisol Perry MD Primary Care Provider Fior Bhandari PharmD Unavailable [phone] Varun Alvarez MD Unavailable Ty Moctezuma MD Unavailable Jennifer Morgan OD Unavailable [phone] Reason for Visit * Reason Comments Med Refill Encounter Details Date Type Department Care Team (Late st Contact Info) Description 04/25/2024 Refill [facility] [address] [place], [place] [phone] Marisol Perry MD [address] [place], [place] [phone] Acute URI Social History Tobacco Use Types Packs/Day Years [...] Description 08/31/2024 10:30 AM EDT Clinical Support [facility] [address] [place] [address] Roxy Carey, ALEJANDRA [address] [place] [address] 09/26/2024 9:30 AM EDT Medication Management [facility] [address] [place] [address] Fior Bhandari, PharmD [address] [place] [address] 01/14/2025 9:30 AM EDT Office Visit [facility] [address] [place] [address] Jennifer Morgan, JOAN [address] [place] [address] documented as of this encounter Goals Goal Patient Goal Type Associated Problems Recent Progress Patient-Stated? Author Blood Pressure < 140/90 Blood Pressure 130/58(2024 9:15 AM EDT) No Piers-Fior Geller PharmD Hemoglobin A1c < 7.5 Result Component 6.4( 5 9:24 AM EDT) No Fior Casilals PharmD documented as of this encounter Visit Diagnoses Diagnosis Acute URI Acute upper respiratory infections of unspecified site documented in this encounter Additional Health Concerns Assessment Noted Time PHQ-9 Depression Total Score: 0 07/25/19 24 10:34 AM EDT documented as of this encounter Care Teams Museum Librarian Relationship Specialty Start Date End Date Marisol Perry MD [address] [place] [address] PCP - General Family Medicine 05/02/18 Fior Bhandari PharmD [address] [place] [address] Pharmacist Internal Medicine 06/18/22 Varun Alvarez MD [address] [place] [address] Gastroenterology 06/25/24 Ty Moctezuma MD [address] [place] [address] Cardiology 06/25/24 Jennifer Morgan OD [address] [place] [address] Optometry 06/25/24 documented as of this encounter
--- OUTSIDE RECORDS SUMMARY | 2024-08-23 08:41 | XMS_ITS | Encounter Summary ---
Author Organization [employer] Address 75 [facility] 7t [place] [address] Care Team Providers Care Business Process Expert Name Role Phone Marisol Perry MD Primary Care Provider [phone] Fior Bhandari PharmD Unavailable Varun Alvarez MD Unavailable Ty Moctezuma MD Unavailable Jennifer Morgan OD Unavailable [phone] Encounter Details Date Type Department Care Team (Late st Contact Info) Description 11/10/2022 Abstract [facility] MEDICINE [address] [place], [place] [phone] Marisol Perry MD [address] [place], [place] [phone] Social History Tobacco Use Types Packs/Day Years [...] suspected to have Coronavirus/COVID-19? No / Unsure 10/20/2022 2:19 PM EDT documented as of this encounter Plan of Treatment Upcoming Encounters Date Type Department Care Team (Late st Contact Info) Description 08/31/2024 10:30 AM EDT Clinical Support [facility] MEDICINE [address] [place] [address] Roxy Carey RN [address] [place] [address] 09/26/2024 9:30 AM EDT Medication Management [facility] MEDICINE [address] [place] [address] Fior Bhandari, PharmD [address] [place] [address] 01/14/2025 9:30 AM EDT Office Visit [facility] OPTOMETRY [address] [place] [address] Jennifer Morgan, OD 230 [place] [address] documented as of this encounter Goals Goal Patient Goal Type Associated Problems Recent Progress Patient-Stated? Author Blood Pressure < 140/90 Blood Pressure 130/58( 025 9:15 AM EDT) No Fior Casillas PharmD documented as of this encounter Procedures Procedure Name Priority Date/Time Associated Diagnosis Comments COLONOSCOPY Routine 11/04/2022 documented in this encounter Results * Colonoscopy (11/04/2022) Colonoscopy Normal Normal Comment:With Dr. Alvarez who r ecommends no future colonoscopy needed us Historical Provider HEALTH MAINTENANCE Final Result documented in this encounter Visit Diagnoses Not on filedocumented in this encounter Additional Health Concerns Assessment Noted Time PHQ-9 Depression Total Score: 0 07/02/19 23 10:47 AM EST documented as of this encounter Care Teams Business Process Expert Relationship Specialty Start Date End Date Marisol Perry MD [address] [place] [address] PCP - General Family Medicine 05/02/18 Fior Bhandari, DemarD [address] [place] [address] Pharmacist Internal Medicine 06/18/22 Varun Alvarez MD [address] [place] [address] Gastroenterology 06/25/24 Ty Moctezuma MD [address] [place] [address] Cardiology 06/25/24 Jennifer Morgan OD [address] [place] [address] Optometry 06/25/24 documented as of this encounter
--- OUTSIDE RECORDS SUMMARY | 2024-08-23 08:41 | XMS_ITS | Encounter Summary ---
Author Organization [employer] Address 75 [facility] 7t [place] [address] Care Team Providers Care Case Liner Name Role Phone Marisol Perry MD Primary Care Provider [phone] Fior Bhandari PharmD Unavailable Varun Alvarez MD Unavailable Ty Moctezuma MD Unavailable [phone] Jennifer Morgan OD Unavailable Encounter Details Date Type Department Care Team (Late st Contact Info) Description 05/18/2022 Abstract [facility] MEDICINE [address] [place] [address] Marisol Perry MD 230 [place], [place] [phone] Social History Tobacco Use Types Packs/Day Years [...] 10:30 AM EDT Clinical Support [facility] MEDICINE [address] [place] [address] Roxy Carey RN 505 [place] [address] 09/26/2024 9:30 AM EDT Medication Management [facility] MEDICINE [address] [place] [address] Fior Bhandari, PharmD [address] [place] [address] 01/14/2025 9:30 AM EDT Office Visit [facility] OPTOMETRY [address] [place] [address] Eddie, Jennifer, OD 230 [place] [address] documented as of this encounter Procedures Procedure Name Priority Date/Time Associated Diagnosis Comments MAMMOGRAPHY Routine 04/10/2021 COLONOSCOPY Routine 04/01/2013 documented in this encounter Results * Mammography (04/10/2021) Mammogram BIRADS 2 Anatomical Region Laterality Modality Other Historical Provider HEALTH MAINTENANCE Final Result * Colonoscopy (04/01/2013) Colonoscopy Dr. Alvarez Historical Provider HEALTH MAINTENANCE Final Result documented in this encounter Visit Diagnoses Not on filedocumented in this encounter Care Teams Case Liner Relationship Specialty Start Date End Date Marisol Perry MD [address] [place] [address] PCP - General Family Medicine 05/02/18 Fior Bhandari, PharmD [address] [place] [address] Pharmacist Internal Medicine 06/18/22 Varun Alvarez MD [address] [place] [address] Gastroenterology 06/25/24 Ty Moctezuma MD [address] [place] [address] Cardiology 06/25/24 Jennfier Morgan OD [address] [place] [address] Optometry 06/25/24 documented as of this encounter
== END 2024-08-23 08:24 | disposition home or self-care (01) ==
LOC: HO.MAMMO 08:23
PROVIDERS: PCP Family Medicine; Visit Provider Family Medicine
DX: Z12.31 Encounter for screening mammogram for malignant neoplasm of breast (principal)
CPT/HCPCS: 77063; 77067

== ENCOUNTER → 2024-08-23 08:45 | Outpatient (BNV) | payer OTHER, SELFPAY | PROVIDERS: PCP Family Medicine; Visit Provider Internal Medicine | DX: Z12.31 Encounter for screening mammogram for malignant neoplasm of breast (principal) | CPT/HCPCS: 77063; 77067 ==

== ENCOUNTER 2024-11-30 13:06 | Outpatient (REF) | payer OTHER, SELFPAY ==
--- OUTSIDE RECORDS SUMMARY | 2024-08-16 05:00 | XMS_ITS ---
Author Organization [facility] Address [address] [place] [address] Care Team Providers Care Counter Dish Carrier Name Role Phone Orlando GOMEZ, Marisol Primary Care Provider Salina Varun Borrero Unavailable [phone] REASON FOR VISIT hx of hep c Encounters Encounter Location Date Provider Diagnosis [facility] [address] [place] [address] 08/16/2024 Varun Alvarez Plan Of Treatment Next Appt Details Provider Name:Varun Land Antonio , 12/04/2024 10:10:00 AM, [address], [address], [place], [address], Progress Notes * ANAM CORTEZOB: (79 yo F)Acc No.[id number]:08/16/2024 Progress Notes Patient: YURIY BRIGGS Provider: Susanna Alvarez MD :1945 A ge:79 Y S ex:Female Date:08/16/2024 Address:[address] [address], [place] Pcp:Marisol Perry MD Subjective: * Chief Complaints: * 1 . Hx of hep c. * Medical History: Objective: * Vitals: Assessment: Plan: * Treatment: * * The named appointment provid er may or may not be the originator of this progress note, and it is not deemed complete until electronically signed by the appointment provider. Sign off status: Pending * Provider: Susanna Alvarez MD Date: 0 08/16/2024 Generated for Obed badillo/Jeanette/Leviitting on: 0 11/30/2024 12:18 PM EDT
[2024-11-30 14:42] LABS: Alanine Aminotransferase 23 U/L (0-31); Albumin Level 4.6 g/dL (3.5-5.0); Alkaline Phosphatase 107 U/L (39-117); Anion Gap 14 (12-20); Aspartate Amino Transferase 27 U/L (5-31); Blood Urea Nitrogen 19 mg/dL (9-16); Calcium 9.6 mg/dL (8.4-10.2); Carbon Dioxide 23 mmol/L (22-29); Chloride 111 mmol/L (96-108); Cholesterol 171 mg/dL (<200); HDL Cholesterol 46 mg/dL (>40); Potassium 4.0 mmol/L (3.3-5.1); Sodium 144 mmol/L (135-145); Total Protein 7.3 g/dL (6.5-8.0); Triglycerides 175 mg/dL (<150)
[2024-11-30 14:53] LABS: Estimated Glomerular Filt Rate > 60
[2024-11-30 15:01] LABS: Microalbum/Creatinine Ratio Ur 385.0 ug/mg cr (<30)
[2024-11-30 15:42] LABS: Free T4 (Free Thyroxine) 0.90 ng/dL (0.71-1.85)
== END 2024-11-30 13:07 | disposition home or self-care (01) ==
LOC: HO.HHCL 13:06
PROVIDERS: PCP Family Medicine; Visit Provider Family Medicine
DX: I10 Essential (primary) hypertension (principal); E11.9 Type 2 diabetes mellitus without complications; Z79.4 Long term (current) use of insulin; E55.9 Vitamin D deficiency, unspecified; E03.9 Hypothyroidism, unspecified
CPT/HCPCS: 36415; 80048; 80061; 80076; 82043; 82306; 82570; 84439; 84443

== ENCOUNTER 2024-12-04 10:55 | Outpatient (REF) | payer OTHER, SELFPAY ==
--- OUTSIDE RECORDS SUMMARY | 2024-08-16 05:00 | XMS_ITS ---
Author Organization [facility] Address [address] [place] [address] Care Team Providers Care Federal District Clerk Name Role Phone Orlando GOMEZ, Marisol Primary Care Provider Salina Varun Borrero Unavailable [phone] Ty Moctezuma Unavailable Unavailable REASON FOR VISIT hx of hep c Encounters Encounter Location Date Provider Diagnosis [facility] [address] [place] [address] 08/16/2024 Varun Alvarez Plan Of Treatment Next Appt Details Provider Name:Varun Alvarez , 12/05/2025 11:00:00 AM, [address], [address], [place], [address], Progress Notes * ANAM CORTEZOB: 7 (79 yo F)Acc No.[id number]:08/16/2024 Progress Notes Patient: YURIY BRIGGS Provider: Susanna Alvarez MD :1945 A ge:79 Y S ex:Female Date:08/16/2024 Address:[address] [facility] [address], [place] Pcp:Marisol Perry MD Subjective: * Chief Complaints: [...] 08/16/2024 Generated for Obed badillo/Jeanette/Leviitting on: 0 12/04/2024 11:41 AM EDT
[2024-12-04 13:32] LABS: MANUAL DIFF FLAG NO
[2024-12-04 13:41] LABS: Hematocrit 48.0 % (37.0-47.0); Hemoglobin 15.6 g/dl (12.0-16.0); Imm Gran Abs Auto 0.02 X10*3/uL (0.00-0.03); Imm Gran Pct Auto 0.3 % (0.0-0.4); Lymphocytes Absolute Auto 1.8 X10*3/uL (1.2-4.9); Mean Corpuscular HGB Conc 32.5 g/dl (31.0-35.0); Mean Corpuscular Hemoglobin 30.8 pg (27.0-33.0); Mean Corpuscular Volume 94.7 fL (80.0-98.0); NRBC Abs Auto 0.000 X10*3/uL (0.0-0.012); NRBC Pct Auto 0.0 /100WBC (0.0-0.2); Platelet Count 186 X10*3/uL (160-400); Red Blood Count 5.07 X10*6/uL (4.20-5.50); White Blood Count 6.9 X10*3/uL (4.8-10.8)
[2024-12-04 13:55] LABS: INTERNATIONAL NORM RATIO 1.1 (0.9-1.1); Prothrombin Time 12.1 SEC (10.9-12.4)
[2024-12-04 14:05] LABS: Alanine Aminotransferase 35 U/L (0-31); Albumin Level 4.8 g/dL (3.5-5.0); Alkaline Phosphatase 102 U/L (39-117); Aspartate Amino Transferase 34 U/L (5-31); Total Protein 7.6 g/dL (6.5-8.0)
[2024-12-10 03:14] LABS: FIB-ALT 24 U/L (6-29); FIB-Alpha-2-Macroglobulin 343 mg/dL (106-279); FIB-Apolipoprotein A1 163 mg/dL (101-198); FIB-GGT 32 U/L (3-65); FIB-Haptoglobin 186 mg/dL (43-212); FIB-Total Bilirubin 0.3 mg/dL (0.2-1.2); Liver Fibrosis Score 0.38; Liver Fibrosis Stage F1-F2; Nec Inflam Act Grade A0; Nec Inflam Act Score 0.12
== END 2024-12-04 10:56 | disposition home or self-care (01) ==
LOC: HO.10HDL 10:55
PROVIDERS: Visit Provider Internal Medicine
DX: K74.00 Hepatic fibrosis, unspecified (principal); Z86.19 Personal history of other infectious and parasitic diseases
CPT/HCPCS: 36415; 80076; 81596; 82105; 85025; 85610

== ENCOUNTER 2025-01-03 10:17 | Outpatient (AMB) | payer OTHER, SELFPAY ==
--- OUTSIDE RECORDS SUMMARY | 2024-08-16 05:00 | XMS_ITS ---
Author Organization [facility] Address [address] [place] [address] Care Team Providers Care Supervisor Vacuum Metalizing Name Role Phone Orlando GOMEZ, Marisol Primary Care Provider Salina Varun Borrero Unavailable [phone] Ty Moctezuma Unavailable Unavailable REASON FOR VISIT hx of hep c Encounters Encounter Location Date Provider Diagnosis [facility] [address] [place] [address] 08/16/2024 Varun Alvarez Plan Of Treatment Next Appt Details Provider Name:Varun Alvarez , 12/05/2025 11:00:00 AM, [address], [address], [place], [address], Progress Notes * ANAM CORTEZOB: 7 (79 yo F)Acc No.[id number]:08/16/2024 Progress Notes Patient: YURIY BRIGGS Provider: Susanna Alvarez MD :1945 A ge:79 Y S ex:Female Date:08/16/2024 Address:[address] [facility] [address], [place] Pcp:Marisol Perry MD Subjective: * Chief Complaints: [...] 08/16/2024 Generated for Obed badillo/Jeanette/Leviitting on: 0 01/03/2025 11:35 AM EDT
[2025-01-03 10:26] VITALS: BP 150/60; PULSE 75; O2SAT 96; BMI 40.5
--- NOTE | 2025-01-03 10:26 | HO.NEPHOV ---
Vital Signs 01/03/25 10:26 Height 4 ft 2 in Weight 144 lb BMI 40.5 BP 150/60 H Blood Pressure Location Lt brachial Position Sitting Pulse 75 Pulse Source Pulse Oximeter Pulse Oximetry (%) 96 Oxygen Delivery Method Room Air Intake Visit Reasons: ENP: Microalbuminuria-Conf Internal Medicine Nurse Practitioner Required: Yes Internal Medicine Nurse Practitioner Name: Lucas [id number] Accompanied by: Self / Same As Patient Allergies Penicillins Allergy (Severe, Verified 01/03/25 10:29) swelling/hives seafood Allergy (Intermediate, Verified 01/03/25 10:29) itching/swelling/hives levofloxacin (From LEVAQUIN) Allergy (Mild, Verified 01/03/25 10:29) Itching HPI Comments Details: 79 years old lady with PMH hypertension, type 2 diabetes mellitus, hypothyroidism, asthma, questionable cirrhosis, aortic valve stenosis and MARISOL is here to establish care for microalbuminuria. Here with Juan Carlos. Hypertension: Since for past 8 years , on spironolactone;sometimes she forgets to take lisinopril 40 and diltiazem 240. Dint take her pills this morning. Diabetes mellitus: Since for past 15 years , last A1c 6.4 in June 2024, on Jardiance 10mg and metformin PFSH Medical History (Updated 01/03/25 @ 10:39 by Rubio Conte MD) Hepatitis C Mild aortic stenosis PSVT (paroxysmal supraventricular tachycardia) Palpitations COVID-19 vaccination refused History of COVID-19 Overactive bladder GERD (gastroesophageal reflux disease) Hypothyroidism Hyperlipidemia Arthritis HTN (hypertension) Osteoporosis Diabetes Asthma Surgical History History of bladder surgery H/O colonoscopy History of total hip replacement Hx of hysterectomy Hx of hemorrhoidectomy Social History Household Members: Spouse Housing: Apartment Are you a primary healthcare management to a significant other at home: No Do you presently have visiting nurse or other home services: No Alcohol intake: never Comment: ISO Patient Tobacco Use Status: Former Tobacco user Tobacco use type: Cigarette Advance Directives Date on File: 05/06/19 service: No Current occupational status: retired Review of Systems Const Details: Const : no body aches, no chills, no excessive sweating and no fatigue Eyes: no blurry vision and no change in vision ENT: no bleeding gums and no change in voice, no dizziness Card: no chest pain, no shortness of breath, no orthopnea, no PND Resp: no cough, no excessive phlegm production, no SOB GI: no abdominal pain and no nausea, no vomiting : no hematuria, no urinary frequency and no difficulty voiding Musc: no abnormal gait, no bone pain Neuro: no abnormal movements, no weakness, no dizziness, no abnormal gait and no behavioral changes Psych: no behavioral changes and no change in appetite Endo: no change in body appearance, no cold intolerance, no excessive sweating and no fatigue Physical Exam Vital Signs: BMI result Body Mass Index 40.5 General: not in any acute distress, comfortable, sitting on the chair Nutritional Appearance: well nourished and weight Eyes: normal position, no icterus Neck: No lymphadenopathy, no thyromegaly Resp: bilateral air entry equal, no added sounds present Cardio: normal S1, S2 heard, no murmur heard, no edema GI: soft, nontender, no guarding, no hepatosplenomegaly : bladder normal to inspection, bladder normal to palpation, no renal angle tenderness Skin: no rashes or lesions noted and elasticity normal Neuro: oriented to person, oriented to place, oriented to time and moves all extremities Results Reviewed Nephrology Results: Hgb, (12.0-16.0) 15.6 g/dl 12/04/24 WBC, (4.8-10.8) 6.9 X10*3/uL 12/04/24 Plt Count, (160-400) 186 X10*3/uL 12/04/24 Sodium, (135-145) 144 mmol/L 11/30/24 Potassium, (3.3-5.1) 4.0 mmol/L 11/30/24 Chloride, (96-108) 111 mmol/L H 11/30/24 Carbon Dioxide, (22-29) 23 mmol/L 11/30/24 BUN, (9-16) 19 mg/dL H 11/30/24 Creatinine, (0.5-1.4) 0.88 mg/dL 11/30/24 Calcium, (8.4-10.2) 9.6 mg/dL 11/30/24 Urine Creatinine 50.12 mg/dL 11/30/24 Assessment & Plan Assessment & Plan (1) Diabetes mellitus: Code(s): E11.9 - Type 2 diabetes mellitus without complications Category: Medical (2) Microalbuminuria: Code(s): R80.9 - Proteinuria, unspecified Category: Medical Plan Chronic kidney disease stage IIA3 : - Possibly secondary to longstanding diabetes vs obesity, although her control is good. Would like to rule out other causes - no family history of CKD, no history of renal stones in the past, NSAID use. - creatinine 0.88 , GFR >60 - urine microalbumin creatinine ratio: 385 - Renal ultrasound right kidney 10.1 cm, left kidney tube 10.4 cm in 2020 - avoid nephrotoxic medications not limited to NSAIDs, contrast etc. - importance of diet, weight loss, adequate blood pressure control, stop smoking well explained to patient - will get hepatitis panel, HIV, HECTOR, ANCA, complements, SPEP, UPEP, serum free light chains, PLA2R - needs better compliance lisinopril and needs to take everyday explained to the patient as it is not the med box - improtance of weight loss explained to patient as it would help with proteinuria, diabetes mellitus and hypertension. - She weighs 144lbs and her BMI is 40.5. Hypertension: - target blood pressures less than 130/90 mm Hg - today she did nit take her pills so her BP is on higher side. ASked her to take her medications before coming to clinic next time as we will know how her blood pressures are with the medications. - continue lisinopril, diltiazem and spironolactone. This note is constructed using voice recognition software. While every effort has been made to ensure accuracy pin puller errors may have been included. Total time spent in the clinic is about 35 minutes, 5 minutes on chart review, review of data, 20 minutes on encounter, physical examination, counseling, answering all the questions, 10 minutes on documentation. Orders: Orders Basic Metabolic Panel 3 Months E11.9 - Type 2 diabetes mellitus without complications, R80.9 - Proteinuria, unspecified UA and rflx microscopic 3 Months E11.9 - Type 2 diabetes mellitus without complications, R80.9 - Proteinuria, unspecified Microalbumin, Random (w Creat) 3 Months E11.9 - Type 2 diabetes mellitus without complications, R80.9 - Proteinuria, unspecified Creatinine Urine 3 Months E11.9 - Type 2 diabetes mellitus without complications, R80.9 - Proteinuria, unspecified Phosphorus 3 Months E11.9 - Type 2 diabetes mellitus without complications, R80.9 - Proteinuria, unspecified Parathyroid Hormone Intact 3 Months E11.9 - Type 2 diabetes mellitus without complications, R80.9 - Proteinuria, unspecified Complete Blood Count no Diff 3 Months E11.9 - Type 2 diabetes mellitus without complications, R80.9 - Proteinuria, unspecified HIV Ab/Ag 3 Months E11.9 - Type 2 diabetes mellitus without complications, R80.9 - Proteinuria, unspecified ANCA Vasculitides 3 Months E11.9 - Type 2 diabetes mellitus without complications, R80.9 - Proteinuria, unspecified Protein Electrophoresis,Ran Ur 3 Months E11.9 - Type 2 diabetes mellitus without complications, R80.9 - Proteinuria, unspecified Phospholipase A2 Receptor Pnl 3 Months E11.9 - Type 2 diabetes mellitus without complications, R80.9 - Proteinuria, unspecified IRON PROFILE 3 Months E11.9 - Type 2 diabetes mellitus without complications, R80.9 - Proteinuria, unspecified Total Protein Urine Random 3 Months E11.9 - Type 2 diabetes mellitus without complications, R80.9 - Proteinuria, unspecified Vitamin D 25-OH Total 3 Months E11.9 - Type 2 diabetes mellitus without complications, R80.9 - Proteinuria, unspecified Hepatitis B,C Profile 3 Months E11.9 - Type 2 diabetes mellitus without complications, R80.9 - Proteinuria, unspecified HECTOR Reflex Titer and Pattern 3 Months E11.9 - Type 2 diabetes mellitus without complications, R80.9 - Proteinuria, unspecified Complement C3 3 Months E11.9 - Type 2 diabetes mellitus without complications, R80.9 - Proteinuria, unspecified Complement C4 3 Months E11.9 - Type 2 diabetes mellitus without complications, R80.9 - Proteinuria, unspecified Protein Electrophoresis, Serum 3 Months E11.9 - Type 2 diabetes mellitus without complications, R80.9 - Proteinuria, unspecified Deering/Lambda Light Chain Serum 3 Months E11.9 - Type 2 diabetes mellitus without complications, R80.9 - Proteinuria, unspecified Coding Level of Care Code New Pt Level 4 (08792) Diagnoses Diabetes mellitus E11.9 Microalbuminuria R80.9
--- OUTSIDE RECORDS SUMMARY | 2025-01-03 11:35 | XMS_ITS | Encounter Summary ---
Author Organization [employer] Address 75 [facility] 7t [place] [address] Care Team Providers Care Communications Advisor Name Role Phone Marisol Perry MD Primary Care Provider [phone] Fior Bhandari PharmD Unavailable Varun Alvarez MD Unavailable Ty Moctezuma MD Unavailable Jennifer Morgan OD Unavailable Reason for Visit * Reason Comments Med Refill Encounter Details Date Type Department Care Team (Late st Contact Info) Description 11/10/2023 Refill [facility] CHC MED & PEDS [address] [place], [place] [phone] Sarah Baldwin, ANP 230 [place] [address] Hip pain, unspecified laterality Social History Tobacco [...] the past 12 months, has t he [employer], gas, oil or water company threatened to [...] Care Team (Late st Contact Info) Description 01/14/2025 9:30 AM EDT Office Visit [facility] OPTOMETRY [address] [place] [address] Jennifer Morgan, OD [address] [place] [address] 01/17/2025 10:30 AM EDT Office Visit [facility] MEDICINE [address] [place] [address] Marisol Perry MD [address] [place] [address] 02/01/2025 10:00 AM EDT Clinical Support [facility] MEDICINE [address] [place] [address] Roxy Carey RN 505 [place] [address] 02/20/2025 10:00 AM EDT Medication Management [address] [address] Fior Bhandari PharmD [address] [place] [address] documented as of this encounter Goals Goal Patient Goal Type Associated Problems Recent Progress Patient-Stated? Author Blood Pressure < 140/90 Blood Pressure 168/80( 025 10:05 AM EDT) No Fior Casillas PharmD documented as of this encounter Visit Diagnoses Diagnosis Hip pain, unspecified laterality documented in this encounter Additional Health Concerns Assessment Noted Time PHQ-9 Depression Total Score: 0 07/25/19 24 10:34 AM EDT documented as of this encounter Care Teams Communications Advisor Relationship Specialty Start Date End Date Marisol Perry MD [address] [place] [address] PCP - General Family Medicine 05/02/18 Fior Bhandari, DemarD [address] [place] [address] Pharmacist Internal Medicine 06/18/22 Varun Alvarez MD [address] [place] [address] Gastroenterology 06/25/24 Ty Moctezuma MD [address] [place] [address] Cardiology 06/25/24 Jennifer Mrogan OD [address] [place] [address] Optometry 06/25/24 documented as of this encounter
--- OUTSIDE RECORDS SUMMARY | 2025-01-03 11:36 | XMS_ITS | Encounter Summary ---
Author Organization [employer] Address [address] [place] [address] 7t [place] [address] Care Team Providers Care Market Research Lead Name Role Phone Marisol Perry MD Primary Care Provider [phone] Fior Bhandari PharmD Unavailable Varun Alvarez MD Unavailable Ty Moctezuma MD Unavailable Jennifer Morgan OD Unavailable [phone] Encounter Details Date Type Department Care Team (Late st Contact Info) Description 05/18/2022 Abstract [facility] MEDICINE [address] [place], [place] [phone] Marisol Perry MD 230 [place], [place] [phone] Social History Tobacco Use Types Packs/Day Years [...] Description 01/14/2025 9:30 AM EDT Office Visit [facility] OPTOMETRY [address] [place], [place] [phone] Jennifer Morgan, OD 230 [place] [address] 01/17/2025 10:30 AM EDT Office Visit [address] [address] Marisol Perry MD [address] [place] [address] 02/01/2025 10:00 AM EDT Clinical Support [address] [address] Roxy Carey, ALEJANDRA 505 [place] [address] 02/20/2025 10:00 AM EDT Medication Management [address] [address] Fior Bhandari, Whitney [address] [place] [address] documented as of this encounter Procedures Procedure [...] on filedocumented in this encounter Care Teams Market Research Lead Relationship Specialty Start Date End Date Marisol Perry MD [address] [place] [address] PCP - General Family Medicine 05/02/18 Fior Bhandari, Whitney [address] [place] [address] Pharmacist Internal Medicine 06/18/22 Varun Alvarez MD [address] [facility] [address] [address] Gastroenterology 06/25/24 Ty Moctezuma MD [address] [place] [address] Cardiology 06/25/24 Jennifer Morgan OD [address] [place] [address] Optometry 06/25/24 documented as of this encounter
--- OUTSIDE RECORDS SUMMARY | 2025-01-03 11:36 | XMS_ITS | Encounter Summary ---
Author Organization [employer] Address [address] [facility] 7t [place] [address] Care Team Providers Care Director Instructional Material Name Role Phone Marisol Perry MD Primary Care Provider [phone] Fior Bahndari PharmD Unavailable Varun Alvarez MD Unavailable Ty Moctezuma MD Unavailable [phone] Jennifer Morgan OD Unavailable [phone] Reason for Visit * Reason Comments Med Refill Encounter Details Date Type Department Care Team (Late st Contact Info) Description 12/11/2024 Refill [facility] MEDICINE [address] [place], [place] [phone] Marisol Perry MD 230 [place], [place] [phone] Aortic valve stenosis, etiology of cardiac valve disease unspecified Social History Tobacco Use Types Packs/Day Years [...] encounter Miscellaneous Notes * Telephone Encounter - Paty Guthrie - 12/12/2024 9:26 AM EDT Pharmacy [facility]y James Contacted pt to remind her to bring her meds to the [facility] HTN/DM appt today 12/12/24, The patient requested to change the appointment as she was not feeling well as she has diarrheas. The patient checked her blood pressure and the result she got was 129/70- 90, and her sugar 111. The appt was daniel to next Tuesday12/19/24 and the patient was reminded to bring medication forher next appointment. documented in this encounter Plan of Treatment Upcoming Encounters Date Type Department Care Team (Late st Contact Info) Description 01/14/2025 9:30 AM EDT Office Visit [facility] OPTOMETRY [address] [place] [address] Eddie, Jennifer, OD [address] [facility] [place] [address] 01/17/2025 10:30 AM EDT Office Visit [address] [address] Marisol Perry MD [address] [place] [address] 02/01/2025 10:00 AM EDT Clinical Support [address] [phone] Roxy Carey, ALEJANDRA [address] [place], [place] [phone] 02/20/2025 10:00 AM EDT Medication Management [address] [address] Fior Bhandari PharmD [address] [place] [address] documented as of this encounter Goals Goal Patient Goal Type Associated Problems Recent Progress Patient-Stated? Author Blood Pressure < 140/90 Blood Pressure 168/80(2024 10:05 AM EDT) No Fior Casillas PharmDuke Hemoglobin A1c < 7.5 Result Component 6.5( 2:05 PM EDT) No Fior Casillas PharmD documented as of this encounter Visit Diagnoses Diagnosis Aortic valve stenosis, etiology of cardiac valve disease unspecified documented in this encounter Additional Health Concerns Assessment Noted Time PHQ-9 Depression Total Score: 0 07/27/19 25 9:17 AM EDT documented as of this encounter Care Teams Director Instructional Material Relationship Specialty Start Date End Date Marisol Perry MD [address] [place] [address] PCP - General Family Medicine 05/02/18 Fior Bhandari PharmD [address] [place] [address] Pharmacist Internal Medicine 06/18/22 Varun Alvarez MD [address] [place] [address] Gastroenterology 06/25/24 Ty Moctezuma MD [address] [place] [address] Cardiology 06/25/24 Jennifer Morgan OD [address] [place] [address] Optometry 06/25/24 documented as of this encounter
--- OUTSIDE RECORDS SUMMARY | 2025-01-03 11:36 | XMS_ITS | Patient Health Record ---
Author Organization [facility] Address [address] [place] [address] Care Team Providers [employer] Buffer Name Role Phone Marisol Perry MD Primary Care Provider Varun Patel Unavailable [phone] Ty Mo[place] Unavailable Unavailable Allergies Allergen (clinical drug ingredient) Drug/Non Drug Allergy documented on EMR Reaction Allergy Type Onset Date Status Penicillin Unknown Drug Allergy Active Shellfish (FN) shell fish (uncoded) Unknown Allergy Active Results Component Value Reference Range Notes Complete Blood Count Auto Di ff Reviewed date:12/05/2024 12:38:18 AM Interpretation: Performing Lab:[facility], [address] [place] [address] Notes/Report: White Blood Count 6.9 4.8-10.8 X10*3/uL Red Blood Count 5.07 4.20-5.50 X10*6/uL Hemoglobin 15.6 12.0-16.0 g/dl Hematocrit 48.0 37.0-47.0 % Mean Corpuscular Volume 94.7 80.0-98.0 fL Mean Corpuscular Hemoglobin 30.8 27.0-33.0 pg Mean Corpuscular HGB Conc 32.5 31.0-35.0 g/dl Red Cell Distribution Width 12.4 11.0-16.0 % Platelet Count 186 160-400 X10*3/uL Mean Platelet Volume 11.5 9.4-12.3 fL Neutrophils Percent Auto 65.9 45-73 % Imm Gran Pct Auto 0.3 0.0-0.4 % Lymphocytes Percent Auto 25.5 20-40 % Monocytes Percent Auto 6.7 2-11 % Eosinophils Percent Auto 1.2 0-4 % Basophils Percent Auto 0.4 0-2 % NRBC Pct Auto 0.0 0.0-0.2 /100WBC Neutrophils Absolute Auto 4.6 2.0-8.3 x10*3/u L Imm Gran Abs Auto 0.02 0.00-0.03 X10*3/uL Lymphocytes Absolute Auto 1.8 1.2-4.9 X10*3/u L Monocytes Absolute Auto 0.5 0.1-1.2 X10*3/uL Eosinophils Absolute Auto 0.1 0.0-0.4 X10*3/u L Basophils Absolute Auto 0.0 0.0-0.2 X10*3/uL NRBC Abs Auto 0.000 0.0-0.012 X10*3/uL Prothrombin Time INR Reviewed date:12/05/2024 12:37:59 AM Interpretation: Performing Lab:[address] [phone] Notes/Report: Prothrombin Time 12.1 10.9-12.4 SEC INTERNATIONAL NORM RATIO 1.1 0.9-1.1 INTERNATIONAL NORMALIZED RATIO (INR) REFERENCE RANGES Reference Range For patients not on anticoagulant therapy: 0.9 - 1.1 INR ranges for oral anticoagulant therapy: For prevention and treatment of venous thrombosis and pulmonary embolism: 2.0 - 3.0 For acute myocardial infarction with aspirin therapy: 2.0 - 3.0 For acute myocardial infarction without aspirin therapy: 3.0 - 4.0 For patients with mechanical prosthetic heart valves: 2.5 - 3.5 Liver Panel Reviewed date:12/05/2024 12:37:51 AM Interpretation: Performing Lab:[address] [phone] Notes/Report: Bilirubin Total 0.4 0.0-1.0 mg/dL Bilirubin Direct 0.2 0.0-0.5 mg/dL Aspartate Amino Transferase 34 5-31 U/L Alanine Aminotransferase 35 0-31 U/L Total Protein 7.6 6.5-8.0 g/dL Albumin Level 4.8 3.5-5.0 g/dL Alkaline Phosphatase 102 39-117 U/L Alpha Fetoprotein (Not yet r eviewed by provider) Interpretation: Performing Lab:[facility] [address], [place] [address] Notes/Report: Alpha Fetoprotein 4.9 Reference Range: <6.1 The use of AFP as a tumor marker in females is not recommended. This test was performed using the Danie [place] chemiluminescent method. Values obtained from different assay methods cannot be used interchangeably. AFP levels, regardless of value, should not be interpreted as absolute evidence of the presence or absence of disease. THIS TEST WAS PERFORMED AT: [facility] [address] [place] [id number] PORTIA HATHAWAY MD Liver Fibrosis Pnl (Not yet reviewed by provider) Interpretation: Performing Lab:[facility], [address] [place] [phone] Notes/Report: Liver Fibrosis Score 0.38 Liver Fibrosis Stage F1-F2 Liver Fibrosis Interpretation SEE NOTE minimal fibrosis Fibro Test Score (f) Metavir Score f>=0 and f<=0.21 : F0 (no fibrosis) f>0.21 and f<=0.27 : F0-F1 (no fibrosis) f>0.27 and f<=0.31 : F1 (minimal fibrosis) f>0.31 and f<=0.48 : F1-F2 (minimal fibrosis) f>0.48 and f<=0.58 : F2 (moderate fibrosis) f>0.58 and f<=0.72 : F3 (advanced fibrosis) f>0.72 and f<=0.74 : F3-F4 (advanced fibrosis) f>0.74 and f<=1.00 : F4 (severe fibrosis) Nec Inflam Act Score 0.12 Nec Inflam Act Grade A0 Nec Inflam Act Interpretation SEE NOTE no activity ActiTest Score (a) Metavir Score a>=0 and a<=0.17 : A0 (no activity) a>0.17 and a<=0.29 : A0-A1 (no activity) a>0.29 and a<=0.36 : A1 (minimal activity) a>0.36 and a<=0.52 : A1-A2 (minimal activity) a>0.52 and a<=0.60 : A2 (significant activity) a>0.60 and a<=0.62 : A2-A3 (significant activity) a>0.62 and a<=1.00 : A3 (severe activity) [id number]-[id number]-6-Macroglobulin 343 106-279 mg/dL FIB-Haptoglobin 186 43-212 mg/dL FIB-Apolipoprotein A1 163 101-198 mg/dL FIB-Total Bilirubin 0.3 0.2-1.2 mg/dL FIB-GGT 32 3-65 U/L FIB-ALT 24 6-29 U/L Reference ID [id number] Footnote SEE NOTE The reliability of results is dependent on compliance with the preanalytical and analytical conditions recommended by [employer]. The tests have to be deferred for: acute hemolysis, acute hepatitis, acute inflammation, extra hepatic cholestasis. The advice of a specialist should be sought for interpretation in chronic hemolysis and Gilbert's syndrome. The test interpretation is not validated in liver transplant patients. Isolated extreme values of one of the components should lead to caution in interpreting the results. In case of discordance between a biopsy result and a test, it is recommended to seek the advice of a specialist. The causes of these discordances could be due to a flaw of the test or to a flaw in the biopsy: i.e. a liver biopsy has a 33% variability rate for one fibrosis stage. FibroTest is interpretable for chronic hepatitis B and C, alcoholic and non alcoholic steatosis. ActiTest is interpretable for chronic hepatitis B and C. The performance characteristics have been determined by [facility]. It has not been cleared or approved by the U.S. Food and Drug Administration. Performance characteristics refer to the analytical performance of the test. [employer], the associated logo, [employer]uri and all associated [employer] vallejo are the registered trademarks of [employer]. All third democrat vallejo - (R) and (TM) - are the property of their respective owners. (C) [phone] [employer]. All rights reserved. THIS TEST WAS PERFORMED AT: [employer] [facility] [address] [place] [address] BAIRON MARINO MD,PHD,LENNY Reason For Referral No Information Medications Medication SIG (Take, Route, Frequency, Duration) Notes Start Date End Date Status Levothyroxine Sodium 75mcg 1 capsule Ora lly Once a day Active Cartia XT Active oxyBUTYnin Chloride ER 5 MG TAKE 1 TABLE T EVERY MORNING Oral for 30 Active metFORMIN HCl 500 MG 1 tablet with a bo l Orally Once a day Active Ocuvite-Lutein Activ e Lisinopril 20 MG 1 tablet Orally Once a day Active Fluticasone-Salmeterol Active EpiPen 2-Charlie 0.3 MG/0.3ML 1 Injection PRN Active Myrbetriq Active Flonase 50 MCG/ACT 1 spray in each nost ril Nasally Once a day Active oxyCODONE-Acetaminophen Active Benadryl 25mg 1 capsule as needed Orally PRN Active Loratadine 10 MG 2 tablets Orally Onc e a day Active Omeprazole 40 MG 1 Orally Every morni ng for 30 days 08/23/2023 Active Proventil HFA 108 (90 Base) MCG/ACT 2 puffs as needed Inhalation every 4 hrs Active Percocet 5-325mg 1 tablet as needed Orally every 6 hrs prn Active Cardizem CD 240mg 1 capsule Orally Onc e a day Active Aspir-81 81 MG 1 tablet Orally Once a day Active Simethicone Extra Strength 125 MG take 1 every 4 hours if needed for gas or bloating Orally Five times a day if needed for 30 days 12/07/2024 Active Advair Diskus 250-50 MCG/DOSE 1 puff Inhalation once a day Active Dicyclomine HCl 10 MG 1 or 2 capsules 30 to 60 minutes before breakfast and supper regularly. You can take before lunch and bedtime if needed for bloating, gasr, or cramps as well Orally 4 times a day for 30 days 08/23/2023 Active Calcium + D 600mg 1 tablet with meals Orally once a day Active Omeprazole 20 MG 1 capsule Orally Onc e a day Active Immunizations Vaccine Route Administration Date Status Comme nts Flu vaccine no Preserv 3 and > Unknown 02/13/2014 Admin istered Flu vaccine no Preserv 3 and > Unknown 01/28/2015 Admin istered Flu vaccine no Preserv 3 and > Unknown 03/16/2016 Admin istered Influenza Unknown 12/31/2018 Administered Influenza Unknown 01/30/2021 Administered Influenza Unknown 12/31/2021 Administered Influenza Unknown 02/21/2024 Administered Problems Problem Type SNOMED Code ICD Code Onset Dates Problem Status W/U Status Risk Notes Problem Irritable bowel syndrome (03361782) Irritable bowel syndrome (K58.9) Active confirmed Problem Diverticular disease of colon (513993175) Diverticulosis of large intestine without perforation or abscess without bleeding (K57.30) Active confirmed Problem 467673452 Screening for colon cancer (Z12.11) Active confirmed Problem [id number] Abnormal liver ultrasound (R93.2) Active confirmed Problem 88456326317607 History of hepatitis C (Z86.19) Active confirmed Problem 54828034 Liver fibrosis (K74.0) Active confirmed Problem 16104053 Liver fibrosis (K74.00) Active confirmed Problem Gastroesophageal reflux disease (disorder) (807393124) Chronic GERD (K21.9) Active confirmed Vital Signs Temperature 98.6 degrees Fahrenheit 12/04/2024 Blood pressure diastolic 01 mm Hg 12/04/2024 Height 56.25 in 12/04/2024 Blood pressure systolic 001 mm Hg 12/04/2024 Weight 144.8 lbs 12/04/2024 BMI 32.17 kg/m2 12/04/2024 Encounters Encounter Location Date Provider Diagnosis [facility] [address] [place] [phone] 12/04/2024 Varun Alvarez History of hepatitis C Z86.19 ; Irritable bowel syndrome K58.9 ; Liver fibrosis K74.00 and Chronic GERD K21.9 [facility] [address] [place] [phone] 08/14/2024 Varun Alvarez [facility] [address] [place] [phone] 12/05/2024 Varun Alvarez Assessments Encounter Date Diagnosis (ICD Code) Assessment Notes Treatment Notes Treatment Clinical Notes Section Notes 12/04/2024 Irritable bowel syndrome (ICD-10 - K58.9) Use the Dicyclomine before breakfast and supper, and use the other medicine with Simethicone, for the gas and bloating Overall, [place] appears quite well. She does not show any signs nor have any symptoms of progressive liver disease at this time. Her laboratories and ultrasound reports from when I saw her last year are all quite reassuring. We did discuss that her previous treatment and successful eradication of the hepatitis C with the interferon and ribavirin nearly 30 years ago has given her significant benefit as the original liver biopsy at that time did already show some liver fibrosis. I shall schedule her for her yearly ultrasound and laboratory testing to reassess her liver disease and to screen for hepatoma. We did review that this should be done yearly since she is at increased risk of hepatoma given her previous history of hepatitis C and liver fibrosis. In regard to her current abdominal complaints of the postprandial bloating and gas, as well as the irregular bowel movements, we did review this is consistent with her known history of irritable bowel syndrome. I did recommend that she begin using the dicyclomine 10 mg before breakfast and before supper on a regular basis rather than just once a day on a as needed basis. I shall also try to send over a prescription for simethicone that might be covered by her insurance to help alleviate some of her symptoms of gas and bloating as well. I did advise her to avoid any significant amounts of dairy and carbonated beverages. We did review that if indeed she eats a lot of fruit she may want to cut down on that somewhat to see if that helps alleviate some of her symptoms of the gas and bloating as well. In regard to her reflux this seems stable on her omeprazole. She is still having some increasing symptoms and I shall make sure she is on a 40 mg dose of omeprazole rather than 20mg. She is not sure what strength she is on and therefore I will send over a prescription for the 40 mg omeprazole to be sure she is using the higher amount which hopefully would give her better symptomatic relief. I do not think she needs an upper endoscopy at this time. Given her negative screening colonoscopy in 2022, I do not think she will need any further screening colonoscopies in the future. She was advised to certainly let me know if she develops any signs of bleeding. If things remain stable I will plan to see her in 1 year for a follow-up visit. I did advise her and her daughter to contact me in the interim if she has any problems or questions I can be of assistance with. [place] and her daughter were both comfortable with this plan. Thank you again for allowing me to participate in [place]i's care. I shall continue to keep you advised of her progress. 12/04/2024 History of hepatitis C (ICD-10 - Z86.19) Overall, [place] appears quite well. She does not show any signs nor have any symptoms of progressive liver disease at this time. Her laboratories and ultrasound reports from when I saw her last year are all quite reassuring. We did discuss that her previous treatment and successful eradication of the hepatitis C with the interferon and ribavirin nearly 30 years ago has given her significant benefit as the original liver biopsy at that time did already show some liver fibrosis. I shall schedule her for her yearly ultrasound and laboratory testing to reassess her liver disease and to screen for hepatoma. We did review that this should be done yearly since she is at increased risk of hepatoma given her previous history of hepatitis C and liver fibrosis. In regard to her current abdominal complaints of the postprandial bloating and gas, as well as the irregular bowel movements, we did review this is consistent with her known history of irritable bowel syndrome. I did recommend that she begin using the dicyclomine 10 mg before breakfast and before supper on a regular basis rather than just once a day on a as needed basis. I shall also try to send over a prescription for simethicone that might be covered by her insurance to help alleviate some of her symptoms of gas and bloating as well. I did advise her to avoid any significant amounts of dairy and carbonated beverages. We did review that if indeed she eats a lot of fruit she may want to cut down on that somewhat to see if that helps alleviate some of her symptoms of the gas and bloating as well. In regard to her reflux this seems stable on her omeprazole. She is still having some increasing symptoms and I shall make sure she is on a 40 mg dose of omeprazole rather than 20mg. She is not sure what strength she is on and therefore I will send over a prescription for the 40 mg omeprazole to be sure she is using the higher amount which hopefully would give her better symptomatic relief. I do not think she needs an upper endoscopy at this time. Given her negative screening colonoscopy in 2022, I do not think she will need any further screening colonoscopies in the future. She was advised to certainly let me know if she develops any signs of bleeding. If things remain stable I will plan to see her in 1 year for a follow-up visit. I did advise her and her daughter to contact me in the interim if she has any problems or questions I can be of assistance with. [place] and her daughter were both comfortable with this plan. Thank you again for allowing me to participate in [place]'s care. I shall continue to keep you advised of her progress. 12/04/2024 Liver fibrosis (ICD-10 - K74.00) Overall, [place] appears quite well. She does not show any signs nor have any symptoms of progressive liver disease at this time. Her laboratories and ultrasound reports from when I saw her last year are all quite reassuring. We did discuss that her previous treatment and successful eradication of the hepatitis C with the interferon and ribavirin nearly 30 years ago has given her significant benefit as the original liver biopsy at that time did already show some liver fibrosis. I shall schedule her for her yearly ultrasound and laboratory testing to reassess her liver disease and to screen for hepatoma. We did review that this should be done yearly since she is at increased risk of hepatoma given her previous history of hepatitis C and liver fibrosis. In regard to her current abdominal complaints of the postprandial bloating and gas, as well as the irregular bowel movements, we did review this is consistent with her known history of irritable bowel syndrome. I did recommend that she begin using the dicyclomine 10 mg before breakfast and before supper on a regular basis rather than just once a day on a as needed basis. I shall also try to send over a prescription for simethicone that might be covered by her insurance to help alleviate some of her symptoms of gas and bloating as well. I did advise her to avoid any significant amounts of dairy and carbonated beverages. We did review that if indeed she eats a lot of fruit she may want to cut down on that somewhat to see if that helps alleviate some of her symptoms of the gas and bloating as well. In regard to her reflux this seems stable on her omeprazole. She is still having some increasing symptoms and I shall make sure she is on a 40 mg dose of omeprazole rather than 20mg. She is not sure what strength she is on and therefore I will send over a prescription for the 40 mg omeprazole to be sure she is using the higher amount which hopefully would give her better symptomatic relief. I do not think she needs an upper endoscopy at this time. Given her negative screening colonoscopy in 2022, I do not think she will need any further screening colonoscopies in the future. She was advised to certainly let me know if she develops any signs of bleeding. If things remain stable I will plan to see her in 1 year for a follow-up visit. I did advise her and her daughter to contact me in the interim if she has any problems or questions I can be of assistance with. [place] and her daughter were both comfortable with this plan. Thank you again for allowing me to participate in [place]'s care. I shall continue to keep you advised of her progress. 12/04/2024 Chronic GERD (ICD-10 - K21.9) Overall, [place] appears quite well. She does not show any signs nor have any symptoms of progressive liver disease at this time. Her laboratories and ultrasound reports from when I saw her last year are all quite reassuring. We did discuss that her previous treatment and successful eradication of the hepatitis C with the interferon and ribavirin nearly 30 years ago has given her significant benefit as the original liver biopsy at that time did already show some liver fibrosis. I shall schedule her for her yearly ultrasound and laboratory testing to reassess her liver disease and to screen for hepatoma. We did review that this should be done yearly since she is at increased risk of hepatoma given her previous history of hepatitis C and liver fibrosis. In regard to her current abdominal complaints of the postprandial bloating and gas, as well as the irregular bowel movements, we did review this is consistent with her known history of irritable bowel syndrome. I did recommend that she begin using the dicyclomine 10 mg before breakfast and before supper on a regular basis rather than just once a day on a as needed basis. I shall also try to send over a prescription for simethicone that might be covered by her insurance to help alleviate some of her symptoms of gas and bloating as well. I did advise her to avoid any significant amounts of dairy and carbonated beverages. We did review that if indeed she eats a lot of fruit she may want to cut down on that somewhat to see if that helps alleviate some of her symptoms of the gas and bloating as well. In regard to her reflux this seems stable on her omeprazole. She is still having some increasing symptoms and I shall make sure she is on a 40 mg dose of omeprazole rather than 20mg. She is not sure what strength she is on and therefore I will send over a prescription for the 40 mg omeprazole to be sure she is using the higher amount which hopefully would give her better symptomatic relief. I do not think she needs an upper endoscopy at this time. Given her negative screening colonoscopy in 2022, I do not think she will need any further screening colonoscopies in the future. She was advised to certainly let me know if she develops any signs of bleeding. If things remain stable I will plan to see her in 1 year for a follow-up visit. I did advise her and her daughter to contact me in the interim if she has any problems or questions I can be of assistance with. [place] and her daughter were both comfortable with this plan. Thank you again for allowing me to participate in [place]'s care. I shall continue to keep you advised of her progress. Plan Of Treatment Pending Test Test Name Order Date BUN 10/25/2015 CREATININE 10/25/2015 LIVER PROFILE 08/23/2023 LIVER PROFILE 06/27/2014 LIVER PROFILE 12/04/2024 LIVER PROFILE 10/12/2019 LIVER PROFILE 06/27/2018 LIVER PROFILE 02/03/2017 LIVER PROFILE 06/24/2022 LIVER PROFILE 09/30/2015 CBC w DIFF 06/24/2022 CBC w DIFF 09/30/2015 CBC w DIFF 08/23/2023 CBC w DIFF 12/04/2024 CBC w DIFF 10/12/2019 CBC w DIFF 06/27/2018 CBC w DIFF 02/03/2017 PROTHROMBIN TIME (PT, INR) 06/27/2018 PROTHROMBIN TIME (PT, INR) 02/03/2017 PROTHROMBIN TIME (PT, INR) 09/30/2015 PROTHROMBIN TIME (PT, INR) 10/12/2019 ALPHA-FETOPROTEIN,TUMOR MARKER 0 ALPHA-FETOPROTEIN,TUMOR MARKER 3 ALPHA-FETOPROTEIN,TUMOR MARKER 9 ALPHA-FETOPROTEIN,TUMOR MARKER 7 ALPHA-FETOPROTEIN,TUMOR MARKER 5 ALPHA-FETOPROTEIN,TUMOR MARKER 6 ALPHA-FETOPROTEIN,TUMOR MARKER 4 ALPHA-FETOPROTEIN,TUMOR MARKER 5 HEPATITIS C VIRAL LOAD 06/27/2014 MRI ABD W&WO CONTRAST 10/25/2015 US ABD 02/10/2021 HCV LIVER FIBROSIS, FIBRO TEST 5 US ABDOMEN COMP WITH ELASTOGRAPHY 2022 Prothrombin Time INR 12/04/2024 Prothrombin Time INR 06/24/2022 Prothrombin Time INR 08/23/2023 Alpha Fetoprotein 12/04/2024 Alpha Fetoprotein 02/10/2021 Liver Fibrosis Pnl 12/04/2024 Liver Fibrosis Pnl 06/24/2022 Liver Fibrosis Pnl 08/23/2023 US abdomen comp w elastography 4 US abdomen comp w elastography 5 US abdomen comp w elastography 4 Future Test Test Name Order Date COLONOSCOPY 02/13/2013 COLONOSCOPY 06/24/2022 Next Appt Details Provider Name:Varun Alvarez , 12/05/2025 11:00:00 AM, [address], [address], [place], [address], Insurance Providers Payer Name Payer Address Payer Phone Subscriber Number Group Number Insured Name Patient Relationship to Insured Coverage Start Date Coverage End Date [facility] [employer] [address] [address] [place] [phone] [id number] AKILAH CORTEZ [place] Self - patient is the insured MEDICAID OF [employer] [address] [facility] [place] [phone] [id number] DIEGO MAIL Self - patient is the insured Medical (General) History Medical History History ICD Code hepatitis C- s/p Rx in 1997- 1998 with the IF TIW, and susequent IF TIW with the Ribavirin, with eradication-HCV RNA neg in 08/2001-liver bx in 1996 with moderate active hepatitis and bridging fibrosis. Nondetectable HCV viral load in 06/2014 anxiety asthma hypertension type II diabetes Denies MN,CVA,renal disease Neg colonoscopy in 03/2002 except int he morrhoids GERD- EGD in 1996 neg for Alvarez's,esop hagitis, nor varices Sleep apnea-on CPAP Hypothyroidism Colonoscopy in 04/2013- negative, althou gh prep somewhat limited palpitations PSVT Negative screening colonoscopy in September Surgical History Surgery Date(Month/Year) cataract surgery in 2021 bilateral hemorrhoid surgery on 02/11/2017- Dr. Aragon rtpalmira bladder suspension BTL partial hysterectomy left hip replacement-2009
--- OUTSIDE RECORDS SUMMARY | 2025-01-03 11:36 | XMS_ITS | Encounter Summary ---
Author Organization [employer] Address [address] [place] [address] 7t [place] [address] Care Team Providers Care Memorial Designer Name Role Phone Marsiol Perry MD Primary Care Provider +1- [phone] Fior Bhandari PharmD Unavailable Varun Alvarez MD Unavailable Ty Moctezuma MD Unavailable Jennifer Morgan OD Unavailable Encounter Details Date Type Department Care Team (Late st Contact Info) Description 05/10/2022 Orders Only [facility] CHC MED & PEDS [address] [place], [place] [phone] Linda Ramires LPN Social History Tobacco Use [...] Description 01/14/2025 9:30 AM EDT Office Visit [facility] OPTOMETRY [address] [place], [place] [phone] Jennifer Morgan, OD 230 [place], [place] [phone] 01/17/2025 10:30 AM EDT Office Visit [facility] MEDICINE 230 [place] [address] Marisol Perry MD 230 [place] [address] 02/01/2025 10:00 AM EDT Clinical Support [address] [address] Roxy Carey, ALEJANDRA 505 [place] [address] 02/20/2025 10:00 AM EDT Medication Management [address] [address] Fior Bhandari PharmD 230 [place] [address] documented as of this encounter Visit Diagnoses Not on filedocumented in this encounter Care Teams Memorial Designer Relationship Specialty Start Date End Date Marisol Perry MD 230 [place] [address] PCP - General Family Medicine 05/02/18 Fior Bhandari, PharmD [address] [place] [address] Pharmacist Internal Medicine 06/18/22 Varun Alvarez MD [address] [place] [address] Gastroenterology 06/25/24 Ty Moctezuma MD 596 [place] [address] Cardiology 06/25/24 Jennifer Morgan OD 267 [place] [address] Optometry 06/25/24 documented as of this encounter
--- OUTSIDE RECORDS SUMMARY | 2025-01-03 11:36 | XMS_ITS | Encounter Summary ---
Author Organization [employer] Address [address] [facility] 7t [place] [address] Care Team Providers Care Remote Sensing Specialist Name Role Phone Marisol Perry MD Primary Care Provider +1- [phone] Fior Bhandari PharmD Unavailable [phone] Varun Alvarez MD Unavailable Ty Moctezuma MD Unavailable [phone] Jennifer Morgan OD Unavailable Encounter Details Date Type Department Care Team (Late st Contact Info) Description 10/04/2022 Abstract [facility] MEDICINE 230 [place], [place] [phone] Marisol Perry MD 230 [place], [place] [phone] Social History Tobacco Use Types Packs/Day Years [...] Description 01/14/2025 9:30 AM EDT Office Visit [facility] OPTOMETRY 267 [place] [address] EddieTrev hinojosan, OD 230 [place] [address] 01/17/2025 10:30 AM EDT Office Visit [facility] MEDICINE 230 [place] [address] Marisol Perry MD [address] [place] [address] 02/01/2025 10:00 AM EDT Clinical Support [facility] MEDICINE [address] [place] [address] Roxy Carey RN 505 [place] [address] 02/20/2025 10:00 AM EDT Medication Management [facility] MEDICINE 230 [place] [address] Fior Bhandari PharmD 230 [place] [address] documented as of this encounter Goals Goal Patient Goal Type Associated Problems Recent Progress Patient-Stated? Author Blood Pressure < 140/90 Blood Pressure 168/80( 025 10:05 AM EDT) No Fior Casillas, PharmD documented as of this encounter Visit Diagnoses Not on filedocumented in this encounter Additional Health Concerns Assessment Noted Time PHQ-9 Depression Total Score: 0 07/02/19 23 10:47 AM EST documented as of this encounter Care Teams Remote Sensing Specialist Relationship Specialty Start Date End Date Marisol Perry MD [address] [place] [address] PCP - General Family Medicine 05/02/18 Fior Bhandari, DemarD 230 [place] [address] Pharmacist Internal Medicine 06/18/22 Varun Alvarez MD [address] [place] [address] Gastroenterology 06/25/24 Ty Moctezuma MD 596 [place] [address] Cardiology 06/25/24 Jennifer Morgan OD 267 [place] [address] Optometry 06/25/24 documented as of this encounter
--- OUTSIDE RECORDS SUMMARY | 2025-01-03 11:36 | XMS_ITS | Encounter Summary ---
Author Organization [employer] Address 75 [facility] 7t [place] [address] Care Team Providers Care Machine Silver Stripper Name Role Phone Marisol Perry MD Primary Care Provider [phone]- [phone] Fior Bhandari PharmD Unavailable Varun Alvarez MD Unavailable Ty Moctezuma MD Unavailable Jennifer Morgan OD Unavailable Encounter Details Date Type Department Care Team (Late st Contact Info) Description 11/10/2022 Abstract [facility] MEDICINE [address] [place], [place] [phone] Marisol Perry MD 230 [place], [place] [phone] Social History Tobacco Use Types Packs/Day Years [...] Description 01/14/2025 9:30 AM EDT Office Visit [facility] OPTOMETRY [address] [place] [address] Eddie Jennifer, OD 230 [place] [address] 01/17/2025 10:30 AM EDT Office Visit [facility] MEDICINE 230 [place] [address] Marisol Perry MD 230 [place] [address] 02/01/2025 10:00 AM EDT Clinical Support [address] [address] Roxy Carey RN 505 [place] [address] 02/20/2025 10:00 AM EDT Medication Management [facility] MEDICINE [address] [place] [address] Fior Bhandari PharmD 230 [place] [address] documented as of this encounter Goals Goal [...] documented as of this encounter Care Teams Machine Silver Stripper Relationship Specialty Start Date End Date Marisol Perry MD 230 [place] [address] PCP - General Family Medicine 05/02/18 Fior Bhandari, DemarD 230 [place] [address] Pharmacist Internal Medicine 06/18/22 Varun Alvarez MD [address] [place] [address] Gastroenterology 06/25/24 Ty Moctezuma MD 596 [place] [address] Cardiology 06/25/24 Jennifer Morgan OD 267 [place] [address] Optometry 06/25/24 documented as of this encounter
--- OUTSIDE RECORDS SUMMARY | 2025-01-03 11:36 | XMS_ITS | Encounter Summary ---
Author Organization [employer] Address [address] [place] [address] 7t [place] [address] Care Team Providers Care Powder Shoveler Name Role Phone Marisol Perry MD Primary Care Provider [phone]- [phone] Fior Bhandari PharmD Unavailable Varun Alvarez MD Unavailable Ty Moctezuma MD Unavailable Jennifer Morgan OD Unavailable Reason for Visit * Reason Comments Med Refill Encounter Details Date Type Department Care Team (Late st Contact Info) Description 01/12/2023 Refill [facility] MEDICINE 230 [place], [place] [phone] [facility] 230 [place] [address] Pain Social History Tobacco Use Types Packs/Day [...] Description 01/14/2025 9:30 AM EDT Office Visit [facility] OPTOMETRY 267 [place] [address] Eddie, Jennifer, OD 230 [place] [address] 01/17/2025 10:30 AM EDT Office Visit [facility] MEDICINE [address] [place] [address] Marisol Perry MD 230 [place] [address] 02/01/2025 10:00 AM EDT Clinical Support [address] [address] Roxy Carey RN 505 [place] [address] 02/20/2025 10:00 AM EDT Medication Management [address] [address] Fior Bhandari, PharmD [address] [place] [address] documented as of this encounter Goals Goal [...] documented as of this encounter Care Teams Powder Shoveler Relationship Specialty Start Date End Date Marisol Perry MD [address] [place] [address] PCP - General Family Medicine 05/02/18 Fior Bhandari, PharmD [address] [place] [address] Pharmacist Internal Medicine 06/18/22 Varun Alvarez MD [address] [place] [address] Gastroenterology 06/25/24 Ty Moctezuma MD 596 [place] [address] Cardiology 06/25/24 Jennifer Morgan OD 267 [place] [address] Optometry 06/25/24 documented as of this encounter
--- OUTSIDE RECORDS SUMMARY | 2025-01-03 11:36 | XMS_ITS | Encounter Summary ---
Author Organization [employer] Address [address] [place] [address] 7t [place] [address] Care Team Providers Care Associate Professor Of Geology Name Role Phone Marisol Perry MD Primary Care Provider [phone]- [phone] Fior Bhandari PharmD Unavailable Varun Alvarez MD Unavailable Ty Moctezuma MD Unavailable Jennifer Morgan OD Unavailable Encounter Details Date Type Department Care Team (Late st Contact Info) Description 06/07/2022 Orders Only [facility] MEDICINE 230 [place], [place] [phone] Leisa Villanueva LPN Social History Tobacco Use [...] Description 01/14/2025 9:30 AM EDT Office Visit [facility] OPTOMETRY 267 [place], [place] [phone] Jennifer Morgan, OD 230 [place], [place] [address]640 01/17/2025 10:30 AM EDT Office Visit [facility] MEDICINE 230 [place] [address] Marisol Perry MD 230 [place] [address] 02/01/2025 10:00 AM EDT Clinical Support [address] [address] Roxy Carey, RN 505 [place] [address] 02/20/2025 10:00 AM EDT Medication Management [address] [address] Firo Bhandari PharmD 230 [place] [address] documented as of this encounter Visit Diagnoses Not on filedocumented in this encounter Care Teams Associate Professor Of Geology Relationship Specialty Start Date End Date Marisol Perry MD [address] [place] [address] PCP - General Family Medicine 05/02/18 Fior Bhandari, DemarD [address] [place] [address] Pharmacist Internal Medicine 06/18/22 Varun Alvarez MD [address] [place] [address] Gastroenterology 06/25/24 Ty Moctezuma MD 596 [place] [address] Cardiology 06/25/24 Jennifer Morgan OD 267 [place] [address] Optometry 06/25/24 documented as of this encounter
--- OUTSIDE RECORDS SUMMARY | 2025-01-03 11:36 | XMS_ITS | Encounter Summary ---
Author Organization [employer] Address [address] [facility] 7t [place] [address] Care Team Providers Care Forest Engineer Name Role Phone Marisol Perry MD Primary Care Provider [phone]- [phone] Fior Bhandari PharmD Unavailable Varun Alvarez MD Unavailable Ty Moctezuma MD Unavailable Jennifer Morgan OD Unavailable [phone] Reason for Visit * Reason Comments Med Refill Encounter Details Date Type Department Care Team (Late st Contact Info) Description 10/12/2024 Refill [facility] MEDICINE 230 [place], [place] [phone] Marisol Perry MD 230 [place], [place] [phone] Essential hypertension Social History Tobacco Use Types Packs/Day Years [...] 9:30 AM EDT Office Visit [facility] OPTOMETRY [address] [place] [address] Jennifer Morgan, OD 230 [place] [address] 01/17/2025 10:30 AM EDT Office Visit [facility] MEDICINE [address] [place] [address] Marisol Perry MD 230 [place] [address] 02/01/2025 10:00 AM EDT Clinical Support [address] [address] Roxy Carey RN 505 [place] [address] 02/20/2025 10:00 AM EDT Medication Management [address] [address] Fior Bhandari PharmD 230 [place] [address] documented as of this encounter Goals Goal Patient Goal Type Associated Problems Recent Progress Patient-Stated? Author Blood Pressure < 140/90 Blood Pressure 168/80(2024 10:05 AM EDT) No Fior Casillas, PharmD Hemoglobin A1c < 7.5 Result Component 6.5( 2:05 PM EDT) No Fior Casillas, PharmD documented as of this encounter Visit Diagnoses Diagnosis Essential hypertension Unspecified essential hypertension documented in this encounter Additional Health Concerns Assessment Noted Time PHQ-9 Depression Total Score: 0 07/27/19 9:17 AM EDT documented as of this encounter Care Teams Forest Engineer Relationship Specialty Start Date End Date Marisol Perry MD 230 [place] [address] PCP - General Family Medicine 05/02/18 Fior Bhandari, PharmD 230 [place] [address] Pharmacist Internal Medicine 06/18/22 Varun Alvarez MD [address] [facility] [address] [address] Gastroenterology 06/25/24 Ty Moctezuma MD 596 [place] [address] Cardiology 06/25/24 Jennifer Morgan OD [address] [place] [address] Optometry 06/25/24 documented as of this encounter
--- OUTSIDE RECORDS SUMMARY | 2025-01-03 11:36 | XMS_ITS | Encounter Summary ---
Author Organization [employer] Address [address] [place] [address] 7t [place] [address] Care Team Providers Care Manager Of Purchasing Name Role Phone Marisol Perry MD Primary Care Provider [phone]- [phone] Fior Bhandari PharmD Unavailable Varun Alvarez MD Unavailable Ty Moctezuma MD Unavailable [phone] Jennifer Morgan OD Unavailable [phone] Encounter Details Date Type Department Care Team (Late st Contact Info) Description 01/12/2023 Abstract [facility] MEDICINE 230 [place], [place] [phone] Marisol Perry MD 230 [place], [place] [phone] Social History Tobacco Use Types Packs/Day Years [...] 9:30 AM EDT Office Visit [facility] OPTOMETRY [address] [place] [address] Jennifer Morgan, OD 230 [place] [address] 01/17/2025 10:30 AM EDT Office Visit [facility] MEDICINE [address] [place] [address] Marisol Perry MD [address] [place] [address] 02/01/2025 10:00 AM EDT Clinical Support [address] [address] Roxy Carey, ALEJANDRA 505 [place] [address] 02/20/2025 10:00 AM EDT Medication Management [address] [address] Fior Bhandari PharmDuke [address] [place] [address] documented as of this encounter Goals Goal [...] documented as of this encounter Care Teams Manager Of Purchasing Relationship Specialty Start Date End Date Marisol Perry MD [address] [place] [address] PCP - General Family Medicine 05/02/18 Fior Bhandari PharmD [address] [place] [address] Pharmacist Internal Medicine 06/18/22 Varun Alvarez MD [address] [facility] [address] [place] [address] Gastroenterology 06/25/24 Ty Moctezuma MD [address] [place] [address] Cardiology 06/25/24 Jennifer Morgan OD [address] [place] [address] Optometry 06/25/24 documented as of this encounter
--- OUTSIDE RECORDS SUMMARY | 2025-01-03 11:36 | XMS_ITS | Clinical Summary ---
Author Organization [employer] Address [address] [place] [address] 7[address] [place] [address] Care Team Providers Care Powder Compounder Name Role Phone Marisol Perry MD Primary Care Provider [phone] Fior Bhandari PharmD Unavailable Varun Alvarez MD Unavailable Ty Moctezuma MD Unavailable Eddie, Megan OD Unavailable Allergies Active Allergy Reactions Criticality Noted Date Comments Levofloxacin Itching Low 10/25/2022 Penicillins Rash,Hives High 04/29/2010 Other reaction(s): swelling/hives Shellfish Allergy Anaphylaxis High 02/10/2021 Other reaction(s): Unknown Other reaction(s): itching/swelling/hives Sulfamethoxazole 03/01/2019 [employer] Anaphylaxis High 04/29/2010 Trimethoprim 03/01/2019 Medications fluticasone (Flonase) 50 MCG/ACT nasal sprayIndications :Allergy, sequela USE 1-2 SPRAYS IN EACH NOSTRIL ONCE DAILY NEEDED 48 g 3 09/28/19 24 Active albuterol 108 (90 Base) MCG/ACT inhalerIndicatio ns:Wheeze INHALE 2 PUFFS BY MOUTH EVERY 4 HOURS NEEDED 8.5 g 1 10/05/19 24 Active Blood Glucose Monitoring Suppl (The Shared Web Verio Flex System) w/Device kitIndications:T ype 2 diabetes mellitus without complication, without long-term current use of insulin ([facility]) Use as directed to check blood sugar twice daily 1 kit 11/16/19 24 Active acetaminophen (Tylenol 8 Hour) 650 [...] NEEDED 90 mL 1 05/23/19 25 Active furosemide (Lasix) 20 MG tabletIndication [...] times daily. Active Lancets (OneTouch Delica Plus [id number]) miscIndications: Type 2 diabetes mellitus without complications (CMS/HCC) TEST BLOOD SUGAR SIX TIMES DAILY 100 each 07/25/19 25 Active OneTouch Verio test stripIndications :Type 2 diabetes mellitus without complications (CMS/HCC) TEST BLOOD SUGAR SIX TIMES DAILY 100 strip 07/25/19 25 Active dilTIAZem XR (Dilacor XR) 240 MG 24 hr capsuleIndicatio ns:Essential hypertension Take 240 mg by mouth Once per day. Active Vibegron (Gemtesa) 75 MG tabletIndication s:Overactive bladder Take 1 tablet by mouth once daily Active cholecalciferol (Vitamin D-3) 25 MCG tabletIndication [...] MORNING 90 tablet 3 08/15/19 25 Active Ascorbic Acid (vitamin C) 500 MG tabletIndication s:Iron deficiency TAKE 1 TABLET BY MOUTH EVERY MORNING 90 tablet 3 09/05/19 25 Active metFORMIN (Glucophage) 500 MG tabletIndication s:Type 2 diabetes mellitus without complication, with long-term current use of insulin (CMS/[facility]) Take 1 tablet (500 mg) by mouth with breakfast and with evening meal. 09/27/19 25 Active empagliflozin (Jardiance) 10 MGIndications:Ty pe 2 diabetes mellitus without complication, with long-term current use of insulin (CMS/HCC) Take 1 tablet (10 mg) by mouth Once per day. 90 tablet 09/27/19 25 Active rosuvastatin (Crestor) 20 MG tabletIndication s:Hypercholester olemia TAKE 1 TABLET BY MOUTH EVERY EVENING 90 tablet 3 10/10/19 25 Active Aspirin Low Dose 81 MG EC tabletIndication s:Aortic valve stenosis, etiology of cardiac valve disease unspecified TAKE 1 TABLET BY MOUTH EVERY MORNING 90 tablet 3 12/13/19 25 Active spironolactone (Aldactone) 25 MG tabletIndication s:Essential hypertension TAKE 1 TABLET BY MOUTH EVERY EVENING 90 tablet 1 12/20/19 25 Active lisinopril 40 MG tabletIndication s:Essential hypertension TAKE 1 TABLET BY MOUTH EVERY EVENING 90 tablet 1 12/20/19 25 Active GAS RELIEF 125 MG capsule TAKE 1 CAPSULE BY MOUTH EVERY 4 HOURS NEEDED FOR GAS / BLOATING NO MORE THAN FIVE TIMES DAILY 12/08/19 25 Active oxyCODONE-acetam inophen (Percocet) 5-325 MG tabletIndication s:Hip pain, unspecified laterality TAKE 1 TABLET BY MOUTH EVERY DAY NEEDED FOR SEVERE PAIN 28 tablet 12/26/19 25 Active Aspirin Low Dose 81 MG EC tabletIndication s:Aortic valve stenosis, etiology of cardiac valve disease unspecified TAKE 1 TABLET BY MOUTH EVERY MORNING 90 tablet 3 11/09/19 24 025 Discontinued lisinopril 40 MG tabletIndication s:Essential hypertension Take 1 tablet (40 mg) by mouth Once per day. 90 tablet 09/27/19 25 025 Discontinued spironolactone (Aldactone) 25 MG tabletIndication s:Essential hypertension Take 1 tablet (25 mg) by mouth Once per day. 90 tablet 09/27/19 25 025 Discontinued oxyCODONE-acetam inophen (Percocet) 5-325 MG tabletIndication s:Hip pain, unspecified laterality TAKE 1 TABLET BY MOUTH EVERY DAY NEEDED FOR SEVERE PAIN 28 tablet 11/18/19 25 025 Discontinued Active Problems Problem Noted Date Diagnosed Date Allergic reaction 07/26/2024 Overview (07/26/2024): -refilled EPINEPHrine (Epipen) 0.3 MG/0.3ML injection syringe 07/26/24 Assessment & Plan (07/26/2024 9:28 AM EDT): -refilled EPINEPHrine (Epipen) 0.3 MG/0.3ML injection syringe 07/26/24 Exudative age-related macula r degeneration of both eyes with active choroidal neovascularization 07/26/2024 Non-alcoholic cirrhosis 07/26/2024 Avascular necrosis 07/26/2024 Diabetes due to underlying condition w iván robledo comp 07/26/2024 Dietary counseling 07/26/2024 Assessment & [...] 07/26/2024 Overview (07/26/2024): No results found for: [id number] - continue cholecalciferol (Vitamin D-3) 25 MCG [...] reevaluate. 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 02/01 Overview [...] Clifton, last seen 10/08/2022 -dental home is [facility] -filed healthcare proxy on 07/25/2023 Assessment & Plan (07/26/2024 9:25 AM EDT): -next physical exam due after 07/26/25 -eye care facilitated by Ludin Clifton, last seen 10/08/2022 -dental home is [facility] -filed healthcare proxy on 07/25/2023 Assessment & Plan (07/25/2023 10:55 AM EDT): -next physical exam due after 06/2024 -eye care facilitated by Ludin Clifton, last seen 10/08/2022 -dental home is [facility] -filed healthcare proxy on 07/25/2023 Assessment & Plan (01/28/2023 10:00 AM EDT): -next physical exam due after 07/2023 -eye care facilitated by Ludin Clifton, last seen 10/08/2022 -dental home is Aortic valve stenosis 06/29/2022 Overview (07/26/2024): Patient followed at [facility] with Dr. Damari Moctezuma DO. -echo 12/27/23 EF 55-50%, mild pulmonary hypertension, aortic valve mildly calcified, mild AR, mild aortic stenosi with peak /mean pressure gradient of 10.05mmHg/10.20mmHg no change compaired to 12/21/22 -[address] Dr[address] Damari Moctezuma DO, 03/13/24. Clinically stable. Assessment & Plan (07/26/2024 9:22 AM EDT): Patient followed at [facility] with Dr. Damari Moctezuma DO. -echo 12/27/23 EF 55-50%, mild pulmonary hypertension, aortic valve mildly calcified, mild AR, mild aortic stenosi with peak /mean pressure gradient of 10.05mmHg/10.20mmHg no change compaired to 12/21/22 -seen Dr. Damari Moctezuma DO, 03/13/24. Clinically stable. Left anterior fascicular block 06/29/2022 Metabolic dysfunction-associ ated steatotic liver disease (MASLD) 06/29/2022 Overview (07/26/2024): Followed by Otolaryngology Surgeon Dr. Alvarez Lab Results Component Value Date [...] Plan (07/26/2024 9:33 AM EDT): Followed by Otolaryngology Surgeon Dr. Alvarez Lab Results Component Value Date [...] and HFP 07/26/24 Essential hypertension 09/24/2011 Overview (09/27/2024): -Blood pressure is at goal -Continue lifestyle modifications -Continue current medications -continue lasix 20mg daily -cont diltiazem 240mg dialy -lisinopril increased to 40mg once daily (for further treatment of microalbuminuria) and spironolactone decreased to 25mg once daily by [facility] 09/26/24 -atenolol discon in 2019 due to bradycardia Assessment & Plan (07/26/2024 [...] 2020 due to bradycardia Assessment & Plan (01/28/2023 9:59 AM EDT): -Blood pressure is at goal -Continue lifestyle modifications -Continue current medications -continue lasix 20mg daily -cont diltiazem 240mg dialy -cont darlene 50mg daily -cont lisinopril 30mg daily, increased 11/2022 -atenolol discon in 2019 due to bradycardia Assessment & Plan (10/06/2022 [...] Encounters Date Type Department Care Team Description 12/24/2024 Refill [facility] [address] [place] [address] Elba Chandra MD Hip pain, unspecified laterality 12/19/2024 Orders Only [facility] [address] [place] [address] Marisol Perry MD Microalbuminuria (Primary Dx) 12/19/2024 Travel 12/18/2024 Refill [facility] [address] [place] [address] Fior Bhandari PharmD Essential hypertension 12/11/2024 Refill [facility] [address] [place] [address] Marisol Perry MD Aortic valve stenosis, etiology of cardiac valve disease unspecified 12/10/2024 Telephone [facility] [address] [place] [address] Marisol Perry MD 11/30/2024 3:45 PM EDT Office Visit [facility] [address] [place] [address] Natacha Rush CNP Essential hypertension (Primary Dx) 11/30/2024 Orders Only [facility] [address] [place] [address] Marisol Perry MD 11/30/2024 Telephone [facility] [address] [place] [address] Elisabeth Elkins, RN Nurse Triage 11/30/2024 Travel 11/16/2024 Refill [facility] [address] [place] [address] Marisol Perry MD Hip pain, unspecified laterality 11/14/2024 Telephone [facility] [address] [place] [address] Marisol Perry MD 10/16/2024 Telephone [facility] [address] [place] [address] Marisol Perry MD december Recalls 10/16/2024 Travel 10/12/2024 10:30 AM EDT Clinical Support [facility] [address] [facility] [place] [address] Roxy Carey RN residential (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 10/12/2024 Travel 10/12/2024 Refill [facility] [address] [place] [address] Marisol Perry MD Essential hypertension 10/04/2024 Refill [facility] [address] [place] [address] Fior Bhandari, PharmD Hypercholesterolemia from Last 3 Months Immunizations Immunization Administration Dates Next Due Hep A, Adult [...] Sign Reading Time Taken Comments Blood Pressure 168/80 12/19/2024 10:05 AM EDT Pulse 88 12/19/2024 9:52 AM EDT Temperature 36.1 C (97 F) 11/30/2024 3:25 PM EDT Respiratory Rate 14 11/30/2024 3:25 PM EDT Oxygen Saturation 96% 11/30/2024 3:25 PM EDT Inhaled Oxygen Concentration - - Weight 66.2 kg (146 lb) 11/30/2024 3:25 PM EDT Height 143.5 cm (4' 8.5 ) 11/30/2024 3:25 PM EDT Body Mass Index 32.16 11/30/2024 3:25 PM EDT Plan of Treatment Upcoming Encounters Date Type Department Care Team (Late st Contact Info) Description 01/14/2025 9:30 AM EDT Office Visit [facility] OPTOM[facility] [address] [place] [address] Jennifer Morgan, OD [address] [place] [address] 01/17/2025 10:30 AM EDT Office Visit [facility] [address] [place] [phone] Marisol Perry MD [address] [place] [address] 02/01/2025 10:00 AM EDT Clinical Support [address] [address] Roxy Carey, RN [address] [place] [address] 02/20/2025 10:00 AM EDT Medication Management [facility] [address] [place] [phone] Fior Bhandari, PharmD [address] [place] [phone] Health Maintenance Due Date Last Done Comments COVID-19 Vaccine ( season) 2024 Influenza Vaccine (#1) 2024 4, 01/28/2023, 01/18/2022, Additional history exists Diabetes: Hemoglobin A1C 06/02/2025 025, 07/26/2024, 02/15/2024, Additional history exists Alcohol/Substance Use Screening 07/26/2025 07/26/2024 Depression Screening 07/26/2025 07/26/2024, 07/27/19 Diabetes: Foot Exam 07/26/2025 07/26/2024, 07/26/2024, 07/26/2024, Additional history exists SDOH Screening 07/26/2025 07/26/2024 Diabetes: Urine Protein Screening 11/30/2025 11/30/2024, 07/26/2024, 05/08/2024, Additional history exists Lipid Panel 11/30/2025 11/30/2024, 03/02, 07/25/2023, Additional history exists Tobacco Screening 11/30/2025 11/30/2024 Eye Exam 01/11/2026 01/12/2024, 12/31, 01/12/2024, Additional [...] patient's age to complete this topic Meningococcal B Vaccine Aged Out No l onger eligible based on patient's age to complete [...] 168/80(2024 10:05 AM EDT) No Fior Casillas PharmD Hemoglobin A1c < 7.5 Result Component 6.5( 2:05 PM EDT) No Fior Casillas PharmD Procedures Procedure Name Priority Date/Time Associated Diagnosis Comments POCT GLUCOSE Routine 12/19/2024 10:00 AM EDT Type 2 diabetes mellitus without complication, with long-term current use of insulin ([facility]) POCT GLYCATED HEMOGLOBIN, TOTAL Routine 11/30/2024 2:05 PM EDT Type 2 diabetes mellitus without complication, with long-term current use of insulin ([facility]) T4, FREE Routine 11/30/2024 1:10 PM EDT ALBUMIN, RANDOM URINE W/CREATININE Routine 11/30/2024 1:10 PM EDT BASIC METABOLIC PANEL Routine 11/30/2024 1:10 PM EDT HEPATIC FUNCTION PANEL Routine 1:10 PM EDT VITAMIN D,25-OH,TOTAL,IA Routine 11/30/2024 1:10 PM EDT Vitamin D deficiency TSH W/REFLEX TO FT4 Routine 11/30/2024 1 :10 PM EDT Hypothyroidism, unspecified type LIPID PANEL, STANDARD Routine 11/30/2024 1:10 PM EDT Type 2 diabetes mellitus without complication, with long-term current use of insulin ([facility]) POCT LAUREANO-14 URINE DRUG SCREEN Routine 10/12/2024 10:15 AM EDT 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 HM COLONOSCOPY Routine 11/04/2022 IP CONSULT TO OPHTHALMOLOGY Routine 05/21/2022 10:13 AM EST from Last 3 Months or Most Recently Relevant to Health Maintenance Results * POCT glucose manually resulted (12/19/2024 10:00 AM EDT) Glucose Blood, POC 139 60 - 200 mg/dL QC Media Lot # [id number] Lot# Expiration Date 524, Blood Capillary blood specimen / Unknown 12/19/2024 10:00 AM EDT us Marisol Perry MD POINT OF CARE TEST ENTER/E DIT ORDERABLES Final Result * (ABNORMAL) POCT A1C (11/30/2024 2:05 PM EDT) Hemoglobin A1C 6.5(A) 4.0 - 5.7 % QC Media Lot # [id number] Lot# Expiration Date 94 Blood 11/30/2024 2:05 PM EDT us Marisol Perry MD POINT OF CARE TEST ENTER/E DIT ORDERABLES Final Result * Vitamin D, 25-Hydroxy, Total, Immunoassay (11/30/2024 1:10 PM EDT) Vitamin D 25-OH Total 39.3 >30 ng/mL [facility] Comment: Health Based Reference Values*< 20 ng/mL [id number] ng/mL Insufficient> 30 ng/mL Sufficient*Abebe DURAN. N Engl J Med. 2007;357:266-280There is no well-established upper level of normal vitamin Dlevels. Some laboratories use 50 ng/mL as an upper limit ofnormal. However, toxicity is patient-dependent and may occurat any level. Careful correlation with the patient'spresentation is necessary and, if there is concern forvitamin D toxicity, treatment should be consideredirrespective of the serum level.Care must be taken in interpreting Vitamin D results fromdifferent laboratories and methodologies. Published datademonstrated that results from patients undergoinghemodialysis may show a negative bias when tested withvarious automated 25-OH vitamin D assays when compared toLC-MS/MS.When testing samples from patients whose predominant form ofVitamin D is Vitamin D2, such as patients receiving VitaminD2 supplementation, results that are subtherapeutic shouldbe confirmed with another method such as LC-MS/MS. Blood Venous blood specimen / Unknown 11/30/2024 1:10 PM EDT 11/30/2024 2:07 PM EDT Marisol Perry MD LAB BLOOD ORDERABLES Final Result Performing Organization Address [facility]/ZIP Co de Phone Number [facility] [address] [place] [phone] * (ABNORMAL) TSH W/Reflex to FT4 (11/30/2024 1:10 PM EDT) TSH reflex Free T4 5.31(H) 0.32 - 4.0 uIU/mL [facility] Blood Venous blood specimen / Unknown 11/30/2024 1:10 PM EDT 11/30/2024 2:07 PM EDT Marisol Perry MD LAB BLOOD ORDERABLES Final Result Performing Organization Address [facility]/ZIP Co de Phone Number [facility] [address] [place] [phone] * (ABNORMAL) Albumin, Random Urine W/Creatinine (11/30/2024 1:10 PM EDT) Creatinine, Urine 50.12 mg/dL [facility] Microalbumin Urine 193.0 mg/L H [facility] Microalbum Creatinine Ratio Ur 385.0(H) <30 ug/mg cr [facility] Comment:Albumin/Creatinine R atio Reference Ranges: Normal: < 30 ug/mg creatinine Microalbuminuria: 30 - 300 ug/mg creatinineClinical Albuminuria: > 300 ug/mg creatinine 11/30/2024 1:10 PM EDT 11/30/2024 1:53 PM EDT Marisol Perry MD LAB URINE ORDERABLES Final Result Performing Organization Address [facility] Co de Phone Number [facility] [address] [place] [phone] * T4, Free (11/30/2024 1:10 PM EDT) Free T4 (Free Thyroxine) 0.90 0.71 - 1.85 ng/dL [facility] 11/30/2024 1:10 PM EDT 11/30/2024 2:07 PM EDT Marisol Perry MD LAB BLOOD ORDERABLES Final Result Performing Organization Address [facility] Co de Phone Number [facility] [address] [place] [phone] * Hepatic Function Panel (11/30/2024 1:10 PM EDT) Bilirubin, Total 0.4 0.0 - 1.0 mg/dL [facility] Bilirubin, Direct 0.1 0.0 - 0.5 mg/dL [facility] Aspartate Amino Transferase 27 5 - 31 U/L [facility] Alanine Aminotransferase 23 0 - 31 U/L [facility] Total Protein 7.3 6.5 - 8.0 g/dL [facility] Albumin Level 4.6 3.5 - 5.0 g/dL [facility] Alkaline Phosphatase 107 39 - 117 U/L [facility] 11/30/2024 1:10 PM EDT 11/30/2024 2:07 PM EDT Marisol Perry MD LAB BLOOD ORDERABLES Final Result Performing Organization Address [facility] Co de Phone Number [facility] [address] [place] [phone] * (ABNORMAL) Lipid Panel, Standard (11/30/2024 1:10 PM EDT) Triglycerides 175(H) <150 mg/dL [facility] Comment:Desirable Triglyceri de: less than 150 mg/dLBorderline High Triglyceride 150-199 mg/dLHigh Triglyceride: 200-499 mg/dLVery High Triglyceride: greater than or equal to 5OO mg/dL Cholesterol 171 <200 mg/dL [facility] Comment:Desirable Cholestero l: less than 200 mg/dLBorderline High Cholesterol: 200-239 mg/dLHigh Cholesterol: greater than 239 mg/dL LDL Cholesterol Calculated 90 <100 mg/dL [facility] Comment:Desirable LDL: less than 100 mg/dLNear Optimal/Above Optimal LDL: 110- 129 mg/dLBorderline High LDL: 130-159 mg/dLHigh LDL: 160-189 mg/dLVery High LDL: greater than or equal to 190 mg/dL HDL Cholesterol 46 >40 mg/dL [facility] Comment:Desirable HDL: great er than 40 mg/dL Note: This HDL assay may give artificially low results in patients with liver disease. Blood Venous blood specimen / Unknown 11/30/2024 1:10 PM EDT 11/30/2024 2:07 PM EDT Marisol Perry MD LAB BLOOD ORDERABLES Final Result [facility] [address] [place] [phone] * (ABNORMAL) Basic Metabolic Panel (11/30/2024 1:10 PM EDT) Sodium 144 135 - 145 mmol/L [facility] Potassium 4.0 3.3 - 5.1 mmol/L [facility] Chloride 111(H) 96 - 108 mmol/L [facility] Carbon Dioxide 23 22 - 29 mmol/L [facility] Anion Gap 14 12 - 20 [facility] Urea Nitrogen (BUN) 19(H) 9 - 16 mg/dL [facility] Creatinine, Serum 0.88 0.5 - 1.4 mg/dL [facility] Estimated Glomerular Filt Rate >60 [facility] Comment:Chronic Kidney Disea se: Estimated GFR < 60 mL/min/1.58k6Begypa Kidney Disease: Estimated GFR < 15 mL/min/1.73m2 Glucose 107 60 - 115 mg/dL [facility] Calcium 9.6 8.4 - 10.2 mg/dL [facility] 11/30/2024 1:10 PM EDT 11/30/2024 2:07 PM EDT Marisol Perry MD LAB BLOOD ORDERABLES Final Result [facility] [address] [place] [phone] * POCT LAUREANO-14 Urine Drug Screen (10/12/2024 10:15 AM EDT) THC Negative Cocaine Screen, Urine Negative Opiate Screen, Urine Negative Methamphetamine Screen Urine Negative Amphetamine Screen, Urine Negative Benzodiazepines Screen, Urine Negative Barbiturate Screen, Urine Negative Methadone Screen, Urine Negative Buprenophine Screen, Urine Negative TCA, Urine Negative MDMA Urine Negative ng/mL Oxycodone Screen, Urine Positive Phencyclidine (PCP), Urine Negative Propoxyphene, Urine Negative Fentanyl, Urine Negative Urine Urine specimen obtained by clean catch procedure / Unknown 10/12/2024 10:15 AM EDT Narrative Roxy Carey RN - 10/12/2024 10:15 AM EDT .UTOX cup Lot#[id number] Exp. 03/01/26 Internal Pass Control Marisol Perry MD POINT OF CARE TEST ENTER/E DIT ORDERABLES Final Result * Hm Colonoscopy (11/04/2022) Colonoscopy Normal Normal Comment:With Dr. 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
--- OUTSIDE RECORDS SUMMARY | 2025-01-03 11:36 | XMS_ITS | Encounter Summary ---
Author Organization [employer] Address [address] [facility] [address] [place] [address] Care Team Providers Care Gate Watch Name Role Phone Marisol Perry MD Primary Care Provider [phone] Fior Bhandari PharmD Unavailable Varun Alvarez MD Unavailable Ty Moctezuma MD Unavailable [phone] Jennifer Morgan OD Unavailable Reason for Visit * Reason Comments Med Refill Encounter Details Date Type Department Care Team (Late st Contact Info) Description 11/27/2023 Refill [facility] [address] [place], [place] [phone] Miller Hayward MD [address] [place], [place] [phone] Wheeze Social History Tobacco Use Types Packs/Day [...] Description 01/14/2025 9:30 AM EDT Office Visit [facility] [address] [place] [address] Jennifer Morgan, OD [address] [place] [address] 01/17/2025 10:30 AM EDT Office Visit [facility] [address] [place] [phone] Marisol Perry MD [address] [place] [address] 02/01/2025 10:00 AM EDT Clinical Support [facility] [address] [place] [phone] Roxy Carey RN [address] [place] [address] 02/20/2025 10:00 AM EDT Medication Management [facility] [address] [place] [phone] Fior Bhandari PharmD [address] [place] [address] documented as of this encounter Goals Goal [...] documented as of this encounter Care Teams Gate Watch Relationship Specialty Start Date End Date Marisol Perry MD [address] [place] [address] PCP - General Family Medicine 05/02/18 Fior Bhandari, PharmD [address] [place] [address] Pharmacist Internal Medicine 06/18/22 Varun Alvarez MD [address] [address] Gastroenterology 06/25/24 Ty Moctezuma MD [address] [place] [address] Cardiology 06/25/24 Jennifer Morgan OD [address] [place] [address] Optometry 06/25/24 documented as of this encounter
--- OUTSIDE RECORDS SUMMARY | 2025-01-03 11:36 | XMS_ITS | Encounter Summary ---
Author Organization [employer] Address [address] [facility] 7t [place] [address] Care Team Providers Care Prosthetic Assistant Name Role Phone Marisol Perry MD Primary Care Provider [phone]- [phone] Fior Bhandari PharmD Unavailable [phone] Varun Alvarez MD Unavailable Ty Moctezuma MD Unavailable Jennifer Morgan OD Unavailable Reason for Visit * Reason Comments Med Refill Encounter Details Date Type Department Care Team (Late st Contact Info) Description 04/25/[address] [facility] [address] [place], [place] [phone] Marisol Perry MD [address] [place], [place] [phone] Acute URI Social History Tobacco Use Types [...] the past 12 months, has t he [employer] or [employer] threatened to [...] Description 01/14/2025 9:30 AM EDT Office [address] [facility] [address] [place] [address] Jennifer Morgan, OD [address] [place] [address] 01/17/2025 10:30 AM EDT Office Visit [facility] [address] [place] [phone] Marisol Perry MD [address] [place] [address] 02/01/2025 10:00 AM EDT Clinical Support [facility] [address] [place] [phone] Roxy Carey RN [address] [place] [address] 02/20/2025 10:00 AM EDT Medication Management [address] [address] Fior Bhandari PharmD [address] [place] [address] documented as of this encounter Goals Goal [...] documented as of this encounter Care Teams Prosthetic Assistant Relationship Specialty Start Date End Date Marisol Perry MD [address] [place] [address] PCP - General Family Medicine 05/02/18 Fior Bhandari, PharmD [address] [place] [address] Pharmacist Internal Medicine 06/18/22 Varun Alvarez MD [address] [facility] [address] [address] Gastroenterology 06/25/24 Ty Moctezuma MD [address] [place] [address] Cardiology 06/25/24 Jennifer Morgan OD [address] [place] [address] Optometry 06/25/24 documented as of this encounter
== END 2025-01-03 11:10 | disposition home or self-care (01) ==
LOC: HO.HKA 10:18
PROVIDERS: PCP Family Medicine; Referring Provider Family Medicine; Visit Provider Internal Medicine Critical Care Medicine
DX: E11.9 Type 2 diabetes mellitus without complications (principal); R80.9 Proteinuria, unspecified
CPT/HCPCS: 99204

== ENCOUNTER → 2025-01-03 10:17 | Outpatient (BNVA) | payer OTHER, SELFPAY | PROVIDERS: PCP Family Medicine; Referring Provider Family Medicine; Visit Provider Internal Medicine Critical Care Medicine | DX: E11.9 Type 2 diabetes mellitus without complications (principal); R80.9 Proteinuria, unspecified; Z79.84 Long term (current) use of oral hypoglycemic drugs; Z79.899 Other long term (current) drug therapy | CPT/HCPCS: 99202 ==